=== PATIENT | female | born 1940 | race Caucasian/White ===

== ENCOUNTER 2017-08-30 15:41 | Outpatient (CLI) | payer MEDICARE | END 2017-08-30 15:42 | disposition home or self-care (01) | LOC: BICMAMMO 15:41 | PROVIDERS: ATTEND Internal Medicine | DX: Z12.31 Encounter for screening mammogram for malignant neoplasm of breast (principal) | CPT/HCPCS: 77063; 77067 ==

== ENCOUNTER 2017-10-16 11:58 | Emergency (ER) | payer MEDICARE ==
[2017-10-16] MEDS ORDERED: Adacel (T-DAP) 0.5 ML VIAL ONE (12:23)
--- NOTE | 2017-10-16 13:04 | CT ---
CT BRAIN WITHOUT CONTRAST: Date: 10/16/17 HISTORY: Fall, trauma, headache. FINDINGS: No evidence of infarct, hemorrhage, midline shift, or abnormal extra-axial fluid collections are seen . The ventricular size is appropriate and the basilar cisterns are patent. The bony calvarium is inta ct. The visualized paranasal sinuses and mastoid air cells are well aerated. IMPRESSION: No CT evidence of acute intracranial process. POS: [facility]
--- NOTE | 2017-10-16 13:09 | CT ---
CT FACIAL BONES WITH CORONAL AND SAGITTAL REFORMATIONS: Date: 10/16/17 HISTORY: Trauma, fall, facial pain. FINDINGS/IMPRESSION: No acute facial bones fracture is seen. No temporomandibular dislocation is identified. The visualize d paranasal sinuses are well aerated without air fluid levels. POS: [facility]
--- NOTE | 2017-10-16 13:10 | RAD ---
PORTABLE CHEST 1 VIEW: Date: 10/16/17 Time: 1307 hours HISTORY: Trauma. Chest pain. FINDINGS/IMPRESSION: Comparison made with exam of 08/17/15. The heart is enlarged. No lobar consolidation, pneumothorax, olayinka pulmonary edema, or large effusion s are seen. There is a fracture involving the left proximal humerus. POS: [facility]
--- NOTE | 2017-10-16 13:14 | RAD ---
LEFT HUMERUS 2 VIEWS: Date; 10/16/17 HISTORY: Fall. Left arm pain. FINDINGS/IMPRESSION: There is a mildly displaced fracture involving the neck of the left humerus. POS: [facility]
--- NOTE | 2017-10-16 13:18 | RAD ---
LEFT FOREARM 2 VIEWS: Date: 10/16/17 HISTORY: Trauma. Left forearm pain. FINDINGS/IMPRESSION: The left radius and ulna appear intact. POS: [facility]
[2017-10-16] MEDS ORDERED: Bacitracin Zinc 1 Packet ONE (13:31)
== END 2017-10-16 13:53 | disposition home or self-care (01) ==
LOC: SCSER 11:58
DX: S42.292A Other displaced fracture of upper end of left humerus, initial encounter for closed fracture (principal); S51.812A Laceration without foreign body of left forearm, initial encounter; S00.33XA Contusion of nose, initial encounter; I25.10 Atherosclerotic heart disease of native coronary artery without angina pectoris; I48.91 Unspecified atrial fibrillation; E03.9 Hypothyroidism, unspecified; I10 Essential (primary) hypertension; Z79.82 Long term (current) use of aspirin; Z79.899 Other long term (current) drug therapy; Z87.891 Personal history of nicotine dependence; W01.198A Fall on same level from slipping, tripping and stumbling with subsequent striking against other object, initial encounter; Y92.198 Other place in other specified residential institution as the place of occurrence of the external cause
CPT/HCPCS: 70450; 70486; 71045; 90471; 90715; 96372

== ENCOUNTER 2017-10-26 13:36 | Outpatient (CLI) | payer MEDICARE ==
--- NOTE | 2017-10-26 15:34 | HP ---
DATE OF SERVICE: 10/26/2017 HISTORY OF PRESENT ILLNESS: Ms. Rosaura Escobar is a very pleasant 77-year-old accompanied by her sister who presents to the Wound Center for evaluation of a skin tear of the dorsum of the left forea rm. The patient states that she fell on 10/16/2017 and was seen in the [facility] Department for a fracture of her left humerus. The skin tear of the dorsum of the left forearm wa s treated with Steri-Strips to approximate the wound edges. At a followup appointment with Dr. Nelly Sood, the patient was referred to the Wound Center for further evaluation and treatment. The patie nt states she has been dressing the skin tear of the dorsum of her left forearm with Neosporin applie d to the nonstick pads followed by gauze. The patient also presents with edema and weeping of her ri ght lower leg. The patient states she has undergone venous ablation by Dr. Ponce on the right in the past. PAST MEDICAL HISTORY: 1. Osteoarthritis. 2. Hypertension. 3. Atrial fibrillation/atrial flutter. 4. Hypothyroidism. 5. Gastroesophageal reflux disease. 6. Mitral regurgitation. PAST SURGICAL HISTORY: 1. Right total knee arthroplasty. 2. Surgery for endometriosis including appendectomy. 3. Surgery for uterine cavity polyp. 4. Umbilical hernia repair. MEDICATIONS: 1. L-thyroxine. 2. Zantac. 3. Metoprolol. 4. Potassium chloride. 5. Lasix. 6. Aspirin 81 mg. 7. Ambien. 8. Acetamide. 9. Vitamin D. 10. Vitamin B12 injections. 11. Ultram. ALLERGIES: LATEX. SOCIAL HISTORY: Significant for only the rare use of tobacco and rare consumption of alcohol. FAMILY HISTORY: Significant for coronary artery disease. The patient states that her father was doretha gnosed with coronary artery disease. Family history is negative for diabetes mellitus. PHYSICAL EXAMINATION: VITAL SIGNS: Temperature 98.4, pulse 79, respirations 19, blood pressure 138/63. GENERAL: A 77-year-old female sitting on wheelchair in examination room in no acute distress. HEENT: Normocephalic. NECK: No nuchal rigidity. CHEST: Clear to auscultation. CARDIAC: Regular rate and rhythm. ABDOMEN: Soft. EXTREMITIES: A skin tear of the dorsum of the left forearm is present. The Steri-Strips utilized to approximate the wound edges were discontinued. No purulent drainage is associated with the wound. No cellulitis of the left forearm is present. No maceration of the skin of the periwound is noted. Edema of the left forearm and hand is present on exam today. No open wounds are present over the rig ht lower leg. Erythema of the right lower leg is present which appears to be secondary to stasis lasha nges as opposed to an infectious process. No maceration of the skin of the right lower leg is presen t. A dorsalis pedis pulse is easily palpable on the right. Edema of the right foot and lower leg is present on exam today. ASSESSMENT AND PLAN: 1. Skin tear of the dorsum of left forearm as described above. Mepitel, Webril, and an Rob bandage, and Coban will be applied to the skin tear of the dorsum of the left forearm today. Webril and the 3m Coban 2-layer compression system will be applied to the right foot and lower leg. Orders will be transmitted to Home Health for one dressing change before the patient's followup visit in the Wound C enter in 1 week. No antibiotics will be prescribed today based upon the appearance of the right lowe r leg and left upper extremity. The patient understands and is in agreement with the preceding treat ment plan. The patient states she will return to clinic in 1 week for dressing changes to the right lower extremity and left upper extremity. 2. Osteoarthritis. 3. Hypertension. 4. Atrial fibrillation/atrial flutter. 5. Hypothyroidism. 6. Gastroesophageal reflux disease. 7. Mitral regurgitation.
== END 2017-10-26 13:37 | disposition home or self-care (01) ==
LOC: WCC 13:36
PROVIDERS: ATTEND Family Medicine
DX: S51.802D Unspecified open wound of left forearm, subsequent encounter (principal); M19.90 Unspecified osteoarthritis, unspecified site; I10 Essential (primary) hypertension; I48.91 Unspecified atrial fibrillation; I48.92 Unspecified atrial flutter; E03.9 Hypothyroidism, unspecified; K21.9 Gastro-esophageal reflux disease without esophagitis; I34.0 Nonrheumatic mitral (valve) insufficiency
CPT/HCPCS: 29581; 97139; G0463; 99203

== ENCOUNTER 2017-11-02 14:13 | Outpatient (CLI) | payer MEDICARE ==
--- NOTE | 2017-11-02 19:37 | PRG ---
DATE OF SERVICE: 11/02/2017 HISTORY: Ms. Rosaura Escobar is a very pleasant 77-year-old accompanied by her sister who presents to the Wound Center for evaluation of a skin tear of the dorsum of the left forearm. The patient pr eviously stated that she fell on 10/16/2017 and was seen in the [facility] Emergency Dep[facility] tment for a fracture of her left humerus. The skin tear of the dorsum of the left forearm was treate d with Steri-Strips to approximate the wound edges. At a followup appointment with Dr. Nelly Sood, the patient was referred to the Wound Center for further evaluation and treatment. The patient state d that prior to being seen in the Wound Center, she had been dressing the skin tear of the dorsum of her left forearm with Neosporin applied to nonstick pads followed by gauze. [facility], Ms. Escobar also presented with edema and weeping of he r right lower leg. The patient stated she had undergone venous ablation by Dr. Ponce on the [facility] in the past. PHYSICAL EXAMINATION: VITAL SIGNS: Temperature 98.0, pulse 80, respirations 18, blood pressure 142/63. EXTREMITIES: The skin tear of the dorsum of the left forearm measures approximately 1.0 x 3.0 cm. T he wound has almost healed completely. No purulent drainage is associated with the wound. No cellul itis of the left forearm is present. No maceration of the skin of the periwound is noted. Less preston a of the left forearm and hand is present on today's exam than at the time of the patient's initial p resentation to the Wound Center. Erythema of the right lower leg is present, which appears to be sec ondary to stasis changes as opposed to an infectious process. A dorsalis pedis pulse is easily palpa ble on the right. Less edema of the right foot and lower leg is present on exam today than at the ti me of the patient's last visit to the Wound Center. Edema and erythema of the left lower extremity i s noted on exam today. ASSESSMENT AND PLAN: 1. Skin tear of the dorsum of the left forearm as described above. This wound has almost healed com pletely and orders will be transmitted to Home Health for dressing changes of Mepilex border 3 times per week after cleansing and irrigation. Xeroform gauze, ABDs, Webril and 3M Coban 2-layer compressi on system will be applied to the right foot and lower leg today. Orders will also be transmitted to Home Health for dressing changes of the right foot and leg 3 times per week after cleansing and irrig ation. I will see Ms. Escobar again in 2 weeks. 2. Left lower extremity cellulitis. The patient has been given a prescription for Bactrim DS number 20, one p.o. b.i.d. x10 days. 3. Osteoarthritis. 4. Hypertension. 5. Atrial fibrillation/atrial flutter. 6. Hypothyroidism. 7. Gastroesophageal reflux disease. 8. Mitral regurgitation.
== END 2017-11-02 14:14 | disposition home or self-care (01) ==
LOC: WCC 14:13
PROVIDERS: ATTEND Family Medicine
DX: S51.812D Laceration without foreign body of left forearm, subsequent encounter (principal); L03.116 Cellulitis of left lower limb; M19.90 Unspecified osteoarthritis, unspecified site; I48.91 Unspecified atrial fibrillation; I48.92 Unspecified atrial flutter; E03.9 Hypothyroidism, unspecified; K21.9 Gastro-esophageal reflux disease without esophagitis; I34.0 Nonrheumatic mitral (valve) insufficiency
CPT/HCPCS: 29581

== ENCOUNTER 2017-11-23 13:42 | Outpatient (CLI) | payer MEDICARE ==
--- NOTE | 2017-11-23 15:58 | PRG ---
DATE OF SERVICE: 11/23/2017 HISTORY: Ms. Rosaura Escobar is a very pleasant 77-year-old accompanied by her sister who presents to [facility] for evaluation of a skin tear of the dorsum of the left forearm. The patient elian jurado stated that she fell on 10/16/2017 and was seen in the [facility] Emergency Department for a fracture of her left humerus. The skin tear of the dorsum of the left forearm was treated wit h Steri-Strips to approximate the wound edges. At a followup appointment with Dr. Nelly Sood, the marilee calvillo was referred to the Wound Center for further evaluation and treatment. The patient stated gail t prior to being seen in the Wound Center, she had been dressing the skin tear of the dorsum of her l eft forearm with Neosporin applied to the nonstick pads followed by gauze. At the time of the [facility]'s initial presentation to the Wound Center, Ms. Escobar also presented with edema and weeping of her right lower leg. The patient stated she has undergone venous ablation by Dr. Ponce on the right in the past. PHYSICAL EXAMINATION: VITAL SIGNS: Temperature 97.8, pulse 79, respirations 18 and blood pressure 132/63. EXTREMITIES: The skin tear of the dorsum of the left forearm has healed completely. Erythema of the right and left lower legs is present which appears to be secondary to stasis changes as opposed to a n infectious process. A dorsalis pedis pulse and a posterior tibial pulse are palpable on the right and on the left. Less edema of the right and left feet and lower legs is present on exam today than at the time of the patient's last visit to the Wound Center. ASSESSMENT AND PLAN: 1. Skin tear of the dorsum of the left forearm. As stated above, this wound has healed completely. Ms. Escobar will be discharged from clinic today with followup on a p.r.n. basis. 2. Osteoarthritis. 3. Hypertension. 4. Atrial fibrillation/atrial flutter. 5. Hypothyroidism. 6. Gastroesophageal reflux disease. 7. Mitral regurgitation.
== END 2017-11-23 13:43 | disposition home or self-care (01) ==
LOC: WCC 13:42
PROVIDERS: ATTEND Family Medicine
DX: S51.812D Laceration without foreign body of left forearm, subsequent encounter (principal); M19.90 Unspecified osteoarthritis, unspecified site; I10 Essential (primary) hypertension; E03.9 Hypothyroidism, unspecified; I34.0 Nonrheumatic mitral (valve) insufficiency; K21.9 Gastro-esophageal reflux disease without esophagitis
CPT/HCPCS: 97139; G0463; 99212

== ENCOUNTER 2018-07-03 15:13 | Inpatient (IN) | payer MEDICARE ==
[2018-07-03 16:43] LABS: #Lymphocytes 0.8 thou/uL (1.20-3.40); #Monocytes 0.8 thou/uL (0.11-0.59); #Neutrophils 8.6 thou/uL (1.40-6.50); %Basophils 0.5 % (0.0-1.0); %Eosinophils 0.1 % (0.0-10.0); %Lymphocytes 8.1 % (21.0-51.0); %Monocytes 7.8 % (0.0-10.0); %Neutrophils 83.5 % (42.0-75.0); Hemoglobin 14.8 g/dL (12.0-16.0); Mean Corpuscular Hemoglobin 29.5 pg (27.0-31.0); Mean Corpuscular Volume 89.4 fL (78.0-98.0); Platelet Count 251 thou/uL (130-400); RBC Distribution Width 15.9 % (11.5-14.5); Red Blood Cell (RBC) Count 5.02 mill/uL (4.20-5.40); White Blood Cell (WBC) Count 10.3 thou/uL (4.8-10.8)
--- NOTE | 2018-07-03 17:05 | ULT ---
ULTRASOUND WITH DOPPLER DUPLEX VENOUS LOWER EXTREMITY LEFT: HISTORY: 77-year-old female with left lower extremity edema. TECHNIQUE: Color flow Doppler, spectral waveform analysis of pulsed Doppler, and schmidt-scale imaging with damian meenu and augmentation, were used to evaluate the left common femoral, femoral, popliteal, posterior t ibial, and superficial femoral, veins; and the proximal portions of the profunda femoral and greater saphenous, veins. FINDINGS: There is normal compressibility, demonstration of blood flow by color Doppler and pulsed Doppler, and response to augmentation, in all interrogated veins. IMPRESSION: Negative. No deep vein thrombosis in the left lower extremity. jn[] POS: [facility]
[2018-07-03] MEDS ORDERED: Cefepime 2 GM VIAL ONE (17:09)
[2018-07-03 19:26] LABS: Albumin 3.5 g/dL (3.4-4.8)
[2018-07-03 19:28] LABS: Calcium 9.3 mg/dL (7.8-10.44); Chloride 86 mmol/L (98-107); Sodium 126 mmol/L (136-145)
[2018-07-03 19:29] LABS: Globulin 3.5 g/dL (2.4-3.5); Glucose 87 mg/dL (83-110)
[2018-07-03 19:30] LABS: Anion Gap 15 mmol/L (10-20); Bilirubin, Total 2.8 mg/dL (0.2-1.2); Carbon Dioxide 29 mmol/L (23-31)
[2018-07-03 19:32] LABS: Alkaline Phosphatase 127 U/L (40-150); Calc. Creatinine Clearance 0 mL/min (70-130); Estimated GFR-MDRD 58
[2018-07-03 19:33] LABS: BUN (Urea Nitrogen) 13 mg/dL (9.8-20.1)
[2018-07-03 19:34] LABS: AST (SGOT) 22 U/L (5-34)
[2018-07-03 19:35] LABS: ALT (SGPT) 13 U/L (8-55)
[2018-07-03] MEDS ORDERED: Acetaminophen 650 MG Suppository PR PRN (19:59)
[2018-07-03] MEDS ORDERED: Ondansetron PF 4 MG/2 ML Vial IVP PRN (19:59)
[2018-07-03] MEDS ORDERED: Ondansetron ODT 4 MG TAB PO PRN (19:59)
[2018-07-03] MEDS ORDERED: Potassium Chloride 10 MEQ TAB PO PRN (20:08)
[2018-07-03] MEDS ORDERED: Ezetimibe 10 MG TAB PO SCH (21:45)
[2018-07-03] MEDS: Famotidine 20 MG TAB PO SCH (22:07)
[2018-07-03] MEDS: Piperacillin/Tazobactam 3.375 GM in Sodium Chloride 0.9% 100 ML IVPB SCH (23:39)
[2018-07-04] MEDS: Zolpidem Tartrate 5 MG TAB PO PRN ×2 (01:11→20:46)
--- NOTE | 2018-07-04 03:07 | HP ---
PRIMARY CARE PHYSICIAN: Nelly Sood MD CHIEF COMPLAINT: Cellulitis. HISTORY OF PRESENT ILLNESS: This is a 77-year-old white female with a known history of fluid retention, possibly congestive heart failure, who presented to the emergency room, sent from the doctor's office for persistent cellulitis failing outpatient treatment. The patient reports that she did not have any lower extremity edema until March of last year when her blood pressure medicines were changed. She does not remember what medicine Dr. Ponce started. She had a lot of edema and swelling at that time, eventually was able to get it down and then over the holidays, she was staying with her daughter and was not careful to take her Lasix every day, and was not eating all the appropriate stuff, and she swelled up significantly again. After flying back [facility], she developed some redness on the right leg and she did spike fever to 102; this was the Monday after New Year. The patient was seen in her primary care physician's office. She was given a couple different kinds of antibiotics and most recently was put on a prolonged course of Bactrim, which she just finished. This did not improve the redness at all. She has not had any more fever, however, since that spike a week and half ago. The patient denies any other symptoms besides the redness, which has now reached up to her groin. PAST MEDICAL HISTORY: 1. Atrial fibrillation/atrial flutter. 2. Hypertension. 3. Hypothyroidism. 4. Gastroesophageal reflux disease. 5. Mitral regurgitation. 6. Osteoarthritis. PAST SURGICAL HISTORY: 1. Multiple ablation procedures and a Watchman procedure done in [place]. 2. Right total knee arthroplasty. 3. Umbilical hernia repair. 4. Procedure for endometriosis. SOCIAL HISTORY: The patient is a former tobacco user, smoked cigarettes for a few years and quit many years ago. Rare alcohol. She lives by herself and gets around with a walker. FAMILY HISTORY: This patient reports that father was diagnosed with coronary artery disease. Family history is negative for diabetes. KNOWN ALLERGIES: 1. Latex. 2. Digoxin. 3. Adhesive tape. 4. Lipitor. 5. Multaq. 6. Hydrochlorothiazide. 7. Amlodipine. 8. Cipro causes nausea and vomiting. MEDICATIONS: 1. Synthroid 100 mcg daily. 2. Lasix 20 mg, now increased to twice a day by her primary care doctor. 3. Potassium chloride 10 mEq daily. 4. Ferrous sulfate 325 mg daily. 5. Ranitidine 150 mg 2 times a day. 6. Ambien 10 mg as needed. 7. Metoprolol tartrate 50 mg once a day. 8. Aspirin 81 mg daily. REVIEW OF SYSTEMS: CONSTITUTIONAL: Fevers as per HPI, none recently. No chills. She had some weight gain from the increased fluid. This is starting to improve a little bit over the last week. EYES: No double vision or new vision changes. ENT: No congestion, drainage, or sore throat. CARDIOVASCULAR: No chest pain. No palpitations or racing heart. PULMONARY: No coughing, wheezing, or shortness of breath. GASTROINTESTINAL: No abdominal pain. She has had loss of appetite for the last couple of weeks ever since she started getting the cellulitis, has not vomited at all, but has felt nauseated on occasion. She does tend toward constipation and takes a daily stool softener for this. She had stopped it when she started the antibiotics; however, she got constipated, so she took it again and she was able to have a normal bowel movement yesterday. GENITOURINARY: No dysuria or hematuria. MUSCULOSKELETAL: No muscle aches or joint pain. SKIN: See HPI. NEUROLOGIC: No numbness, tingling, or focal weakness in her legs, overall felt weak bilaterally though since she got sick. PHYSICAL EXAMINATION: VITAL SIGNS: Blood pressure 152/75, pulse 74, respirations 18, temperature 98.0, O2 saturation 100% on room air. GENERAL: This is a well-developed, well-nourished white female, in no acute distress. HEENT: Pupils equal, round, and reactive to light. Oropharynx clear without lesions, erythema, or exudate. NECK: Supple. No lymphadenopathy. No thyroid nodules or enlargement. She does have some significant JVD. HEART: Regular rate and rhythm. No murmurs, rubs, or gallops. LUNGS: Clear to auscultation bilaterally. No wheezes, crackles, or rhonchi. ABDOMEN: Soft, obese, nontender to palpation. Normoactive bowel sounds. No hepatosplenomegaly or other masses. EXTREMITIES: The patient has 3+ edema to bilateral lower extremities. She has some mild erythema of the right akins down near the ankle, which appears to be more of a chronic edematous change; however, on the left lower extremity, she has a bright red, warm cellulitis starting down near the foot, extending up the akins, up the medial thigh all the way to her inguinal region. No inguinal node enlargement. No evidence of purulence or abscess. There are some weeping areas bilaterally from the edema. SKIN: See extremity exam above. No other rashes noted. NEUROLOGIC: Intact strength and sensation in all extremities. No facial droop. PSYCHIATRIC: Alert and orient x3. Normal mood and affect. LABORATORY DATA: CBC within normal limits. No elevated white blood cell count. Complete metabolic panel is notable for a sodium of 126. The patient was admitted with hyponatremia a couple years ago. Other abnormal labs; chloride of 86. Total bilirubin is elevated at 2.8, which has actually been elevated before back in 2016. The remainder of the CMP was normal. Lactic acid was 1.9. Brain natriuretic peptide is elevated at 213. Troponin was negative. Vascular ultrasound done in the emergency room showed no evidence for deep venous thrombosis in the left lower extremity. ASSESSMENT AND PLAN: 1. Cellulitis, failed outpatient therapy. The patient was given a dose of Zosyn and vancomycin in the emergency room. We will continue these IV on the floor. 2. Congestive heart failure exacerbation. The patient's most recent echocardiogram was done in 2017, was a transesophageal echocardiogram and showed an ejection fraction of 55% to 60% with severe mitral regurgitation and severe tricuspid regurgitation. She likely has diastolic dysfunction given her normal EF. I do not see a more recent echocardiogram, so we will go ahead and do one while she is in the hospital. We will give her Lasix 40 mg IV twice a day. We will also continue her oral potassium. We will consult whoever is on-call for Dr. Ponce to assist with this case. 3. Hypothyroidism. We will resume the patient's home medications. 4. Hypertension. We will resume the patient's home medications and monitor closely as we diurese. 5. Gastrointestinal prophylaxis. We will continue the patient on a H2 meghan. 6. Deep venous thrombosis prophylaxis. We will put the patient on Lovenox while in the hospital. 7. Code status, I did discuss this with the patient. She states that she is a do not resuscitate and does not want any resuscitation and should she be incapacitated, her daughter would be her medical decision maker. Her daughter's name is Lynette Traore. Also her sister would be of assistance as well. Her name is Flavia Cohn. Job ID: [id number]
[2018-07-04] MEDS: Piperacillin/Tazobactam 3.375 GM in Sodium Chloride 0.9% 100 ML IVPB SCH ×3 (05:38→18:23)
[2018-07-04] MEDS: Levothyroxine Sodium 100 MCG TAB PO SCH (05:41)
[2018-07-04] MEDS: Vancomycin HCl 1 GM in Premix Bag 1 BAG IVPB SCH ×2 (06:33→17:13)
[2018-07-04] MEDS: Furosemide 40 MG/4 ML VIAL SLOW IVP SCH ×2 (06:35→13:55)
[2018-07-04] MEDS: Acetaminophen 325 MG TAB PO PRN (06:36)
[2018-07-04 07:16] LABS: #Lymphocytes 0.8 thou/uL (1.20-3.40); #Monocytes 0.8 thou/uL (0.11-0.59); #Neutrophils 6.5 thou/uL (1.40-6.50); %Basophils 0.3 % (0.0-1.0); %Eosinophils 0.2 % (0.0-10.0); %Lymphocytes 9.9 % (21.0-51.0); %Monocytes 9.9 % (0.0-10.0); %Neutrophils 79.8 % (42.0-75.0); Hemoglobin 13.1 g/dL (12.0-16.0); Mean Corpuscular HGB CONC 32.7 g/dL (32.0-36.0); Mean Corpuscular Hemoglobin 29.4 pg (27.0-31.0); Mean Corpuscular Volume 89.9 fL (78.0-98.0); Mean Platelet Volume 6.9 fL (7.4-10.4); Platelet Count 256 thou/uL (130-400); RBC Distribution Width 14.9 % (11.5-14.5); Red Blood Cell (RBC) Count 4.44 mill/uL (4.20-5.40); White Blood Cell (WBC) Count 8.1 thou/uL (4.8-10.8)
[2018-07-04 07:34] LABS: Anion Gap 13 mmol/L (10-20); BUN (Urea Nitrogen) 13 mg/dL (9.8-20.1); Calc. Creatinine Clearance 83 mL/min (70-130); Calcium 8.8 mg/dL (7.8-10.44); Carbon Dioxide 29 mmol/L (23-31); Chloride 88 mmol/L (98-107); Estimated GFR-MDRD 61; Glucose 80 mg/dL (83-110); Potassium 3.9 mmol/L (3.5-5.1); Sodium 126 mmol/L (136-145)
--- NOTE | 2018-07-04 08:30 | PDOC.PN ---
- Subjective Encounter Start Date: 07/04/18 Encounter Start Time: 10:30 Subjective: Not recorded but patient reports lots of UOP and decreased edema. No fever -: Pain in leg better. - Objective Resuscitation Status - Order Detail: 07/03/18 19:55 Resuscitation Status Routine Resuscitation Status: DNAR: NO Resuscitation Discussed with: Patient MAR Reviewed: Yes Vital Signs & Weight: Vital Signs (12 hours) Temp Pulse Resp BP Pulse Ox 07/04/18 07:50 98.2 F 61 18 128/71 91 L 07/04/18 04:00 97.4 F L 66 16 113/64 97 07/04/18 00:00 98.4 F 68 18 103/66 93 L 07/03/18 23:53 98.2 F 71 20 117/74 92 L Weight Weight 220 lb 9.6 oz I&O: 07/03/18 07/04/18 07/05/18 06:59 06:59 06:59 Output Total 200 Balance -200 Result Diagrams: 07/04/18 06:37 07/04/18 06:37 Phys Exam - Physical Examination Constitutional: NAD HEENT: moist MMs Respiratory: no wheezing, no rales, no rhonchi Cardiovascular: RRR, no significant murmur Gastrointestinal: soft, non-tender, positive bowel sounds Musculoskeletal: edema present 2+ BLE that is better from admission 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 Diuresing with IV Lasix. (3) Hypertension Code(s): I10 - ESSENTIAL (PRIMARY) HYPERTENSION Status: Chronic Qualifiers: Hypertension type: essential hypertension Qualified Code(s): I10 - Essential (primary) hypertension Comment: well controlled (4) Hypothyroidism Code(s): E03.9 - HYPOTHYROIDISM, UNSPECIFIED Status: Chronic Comment: on levothyroxine - Plan cont current plan of care, continue antibiotics, PT/OT, DVT proph w/lovenox * . - Discharge Day Encounter end time: 10:45
[2018-07-04] MEDS: Enoxaparin Sodium 40 MG/0.4 ML SYRINGE SC SCH (08:34)
[2018-07-04] MEDS: Famotidine 20 MG TAB PO SCH ×2 (08:34→20:47)
--- NOTE | 2018-07-04 11:49 | PQF ---
[employer] Crystal Reports Winform JOSS Cruz LENCHO, BLANCA ELKINS MD [id number] [id number] CLINICAL DOCUMENTATION IMPROVEMENT CLARIFICATION FORM: ICD-10 Updated PLEASE DO AN ADDENDUM TO THE PROGRESS NOTE WITH ANY DOCUMENTATION UPDATES OR ADDITIONS AND CARRY THROUGH TO DC SUMMARY. THANK YOU. DATE: 07/04/2018 ATTN: DR. MUSA Please exercise your independent, professional judgment in responding to the clarification form. Clinical indicators are provided on the bottom of this form for your review Please check appropriate box(s): BMI > 40 with associated diagnosis of: (check one) [ X ] Morbid (Severe) Obesity [ ] Due to excess calories [ ] with Alveolar Hypoventilation (Pickwickian syndrome) [ ] Overweight [ ] Obesity [ ] Other diagnosis [ ] Unable to determine For continuity of documentation, please document condition throughout progress notes and discharge summary. Thank You. BMI < 19 Under weight 19 - 24.9 Healthy 25.0 - 29.9 Slightly Overweight 30.0 - 34.9 Obese 35.0 - 39.9 Severely Obese 40.0 and Over Morbidly Obese CLINICAL INDICATORS - SIGNS / SYMPTOMS / LABS BMI of: 41.7 Difficulty ambulating / positioning self-performing ADLs Additional staff for transfers, positioning, ADLs RISK FACTORS HX CHF HX AFIB/AFLUTTER Hypothyroid TREATMENTS: Dietary consult / weight loss counseling Calorie counts Thank You, Hailey (This form is maintained as a part of the permanent medical record) 2014 [employer], [employer]. All Rights Reserved Hailey Lan RN, CDIS [email or web address] [phone] [facility]
[2018-07-04] MEDS: Ezetimibe 10 MG TAB PO SCH (20:47)
[2018-07-05] MEDS: Piperacillin/Tazobactam 3.375 GM in Sodium Chloride 0.9% 100 ML IVPB SCH ×3 (00:43→11:53)
[2018-07-05] MEDS: Levothyroxine Sodium 100 MCG TAB PO SCH (06:27)
[2018-07-05] MEDS: Furosemide 40 MG/4 ML VIAL SLOW IVP SCH ×2 (06:27→14:24)
[2018-07-05 06:41] LABS: Vancomycin, Trough 17.2 ug/mL
[2018-07-05 06:43] LABS: Anion Gap 15 mmol/L (10-20); BUN (Urea Nitrogen) 13 mg/dL (9.8-20.1); Calc. Creatinine Clearance 83 mL/min (70-130); Calcium 8.4 mg/dL (7.8-10.44); Carbon Dioxide 24 mmol/L (23-31); Chloride 90 mmol/L (98-107); Estimated GFR-MDRD 61; Glucose 71 mg/dL (83-110); Potassium 3.8 mmol/L (3.5-5.1); Sodium 125 mmol/L (136-145)
[2018-07-05] MEDS: Vancomycin HCl 1 GM in Premix Bag 1 BAG IVPB SCH (07:42)
--- NOTE | 2018-07-05 09:12 | PDOC.PN ---
- Subjective Encounter Start Date: 07/05/18 Encounter Start Time: 10:30 Subjective: Patient reports continued good UOP. Pain resolved in leg. Redness -: improved. No fevers. No SOB. Swelling in legs much better. - Objective Resuscitation Status - Order Detail: 07/03/18 19:55 Resuscitation Status Routine Resuscitation Status: DNAR: NO Resuscitation Discussed with: Patient SHEREEN Reviewed: Yes Vital Signs & Weight: Vital Signs (12 hours) Temp Pulse Resp BP Pulse Ox 07/05/18 08:00 98.1 F 66 18 138/69 93 L 07/05/18 05:00 98 F 62 18 112/68 91 L 07/05/18 02:19 98 F 64 16 112/59 L 94 L Weight Admit Weight 220 lb 9.6 oz Weight 222 lb 3.2 oz I&O: 07/04/18 07/05/18 07/06/18 06:59 06:59 06:59 Intake Total 1350 500 Output Total 200 1650 1150 Balance -200 -300 -650 Result Diagrams: 07/04/18 06:37 07/05/18 06:02 Phys Exam - Physical Examination Constitutional: NAD HEENT: moist MMs Respiratory: no wheezing, no rales, no rhonchi Cardiovascular: RRR, no significant murmur Gastrointestinal: soft, non-tender, positive bowel sounds redness on thigh mostly gone, edema on both extremities much better Neurological: non-focal, moves all 4 limbs Psychiatric: normal affect, A&O x 3 Dx/Plan (1) Cellulitis Code(s): L03.90 - CELLULITIS, UNSPECIFIED Status: Acute Qualifiers: Site of cellulitis: extremity Site of cellulitis of extremity: lower extremity Laterality: left Qualified Code(s): L03.116 - Cellulitis of left lower limb Comment: On Vanc and Zosyn, blood cultures negative, switch to oral antibiotics today and possibly home tomorrow. (2) Acute exacerbation of CHF (congestive heart failure) Code(s): I50.9 - HEART FAILURE, UNSPECIFIED Status: Acute Comment: Likely diastolic CHF, ECHO pending, cardiology consulted. Diuresing with IV Lasix. (3) Hypertension Code(s): I10 - ESSENTIAL (PRIMARY) HYPERTENSION Status: Chronic Qualifiers: Hypertension type: essential hypertension Qualified Code(s): I10 - Essential (primary) hypertension Comment: well controlled (4) Hypothyroidism Code(s): E03.9 - HYPOTHYROIDISM, UNSPECIFIED Status: Chronic Comment: on levothyroxine (5) Hyponatremia Code(s): E87.1 - HYPO-OSMOLALITY AND HYPONATREMIA Status: Acute Comment: likely due to CHF, stable (6) Morbid obesity Code(s): E66.01 - MORBID (SEVERE) OBESITY DUE TO EXCESS CALORIES Status: Chronic - Plan cont current plan of care, continue antibiotics, PT/OT, DVT proph w/lovenox Patient may need rehab if can't get around well when -: ready to discharge. Will reevaluate tomorrow. * . - Discharge Day Encounter end time: 10:40
[2018-07-05] MEDS: Enoxaparin Sodium 40 MG/0.4 ML SYRINGE SC SCH (09:25)
[2018-07-05] MEDS: Famotidine 20 MG TAB PO SCH ×2 (09:25→20:51)
[2018-07-05] MEDS ORDERED: Potassium Chloride 10 MEQ TAB PO SCH (11:00)
[2018-07-05] MEDS: Acetaminophen 325 MG TAB PO PRN (14:26)
[2018-07-05] MEDS: Cephalexin 250 MG CAP PO SCH ×2 (17:11→23:13)
[2018-07-05] MEDS ORDERED: Cephalexin 250 MG CAP PO SCH (18:00)
--- NOTE | 2018-07-05 18:31 | PRG ---
DATE OF SERVICE: 07/05/2018 SUBJECTIVE: Ms. Escobar is doing well. No current complaints. No chest pain, pressure, shortness of breath, or associated symptoms. OBJECTIVE: GENERAL: Patient is a pleasant female, who is in no acute distress. The patient appears their stated age. VITAL SIGNS: Blood pressure 115/68, pulse 77, temperature 98. NEUROLOGIC: The patient is alert and oriented x3 with no focal neurologic deficits. HEENT: Sclerae without icterus. Mouth has moist mucous membranes with normal pallor. NECK: No JVD. Carotid upstroke brisk. No bruits bilaterally. LUNGS: Clear to auscultation with unlabored respirations. BACK: No scoliosis or kyphosis. CARDIAC: Irregularly irregular. Normal S1 and S2. No S3 or S4 noted. No significant rubs, murmurs, thrills, or gallops noted throughout the precordium. PMI is not displaced. There is no parasternal heave. ABDOMEN: Soft, nontender, nondistended. No peritoneal signs present. No hepatosplenomegaly. No abnormal striae. EXTREMITIES: 2+ femoral and 2+ dorsalis pedis pulses. No cyanosis, clubbing, or edema. SKIN: No gross abnormalities. LABORATORY DATA: None today. IMPRESSION: 1. Congestive heart failure - patient appears euvolemic. Her LVEF appears normal. She likely has a component of diastolic dysfunction. 2. Cellulitis - she is currently on antibiotic therapy. We will continue. 3. From a CV standpoint, I have no further recommendations. PLAN: Follow up as an outpatient. Job ID: [id number]
[2018-07-05] MEDS: Ezetimibe 10 MG TAB PO SCH (20:51)
[2018-07-05] MEDS: Senokot S 8.6-50 MG TAB PO PRN (23:13)
[2018-07-05] MEDS: Zolpidem Tartrate 5 MG TAB PO PRN (23:13)
--- NOTE | 2018-07-06 00:57 | CON ---
DATE OF CONSULTATION: 07/04/2018 REASON FOR CONSULTATION: Congestive heart failure. HISTORY OF PRESENT ILLNESS: Ms. Escobar is a 77-year-old woman who recently presented with cellulitis to her lower extremities. She was treated with antibiotic therapy. I have been consulted for congestive heart failure. During my visit, Ms. Escobar denies chest pain, pressure, shortness of breath, or associated symptoms. She does have a history of atrial fibrillation status post Watchman device. She also has a previous history of moderate RV enlargement with severe tricuspid regurgitation. She has been currently asymptomatic. She does not require anticoagulation therapy due to a Watchman device. PAST MEDICAL HISTORY: Hyperlipidemia, hypertension, atrial fibrillation, status post Watchman, pulmonary hypertension, moderate to severe MR. ALLERGIES: TELMISARTAN, DIGOXIN, HYDROCHLOROTHIAZIDE. HOME MEDICATIONS: Include: 1. Tylenol. 2. Ambien. 3. Che. 4. Vitamin D3. 5. Synthroid. 6. Aspirin. 7. Zetia. 8. Iron. 9. Lasix. 10. Potassium. 11. Toprol. REVIEW OF SYSTEMS: A 10-point review of systems is reviewed and as above, otherwise negative. PHYSICAL EXAMINATION: VITAL SIGNS: Blood pressure 115/68, pulse 77, temperature 98. NEUROLOGIC: The patient is alert and oriented x3 with no focal neurologic deficits. HEENT: Sclerae without icterus. Mouth has moist mucous membranes with normal pallor. NECK: No JVD. Carotid upstroke brisk. No bruits bilaterally. LUNGS: Clear to auscultation with unlabored respirations. BACK: No scoliosis or kyphosis. CARDIAC: Irregularly irregular. ABDOMEN: Soft, nontender, nondistended. No peritoneal signs present. No hepatosplenomegaly. No abnormal striae. EXTREMITIES: 2+ femoral and 2+ dorsalis pedis pulses. No cyanosis, clubbing, or edema. SKIN: No gross abnormalities. PERTINENT LABORATORY DATA: Hemoglobin 13.1, white blood cell count 8.1, platelet count 256, creatinine 0.9. BNP of 213. IMPRESSION: 1. Congestive heart failure. 2. Atrial fibrillation. 3. Cellulitis. RECOMMENDATIONS: Ms. Escobar currently appears euvolemic. She has no current symptoms suggesting congestive heart failure. We will treat the cellulitis appropriately. No need for anticoagulation therapy given Watchman device. I compared her current echo to her previous echo and there are no significant changes noted. Job ID: [id number]
[2018-07-06] MEDS: Cephalexin 250 MG CAP PO SCH ×3 (05:53→17:15)
[2018-07-06] MEDS: Levothyroxine Sodium 100 MCG TAB PO SCH (05:53)
[2018-07-06] MEDS: Furosemide 40 MG/4 ML VIAL SLOW IVP SCH (05:53)
[2018-07-06] MEDS ORDERED: ZOLPIDEM TARTRATE PO PRN (08:03)
--- NOTE | 2018-07-06 08:06 | PDOC.PN ---
- Subjective Encounter Start Date: 07/06/18 Encounter Start Time: 11:00 Subjective: Patient feeling much better. No fever. No SOB. Swelling in legs resolved. - Objective Resuscitation Status - Order Detail: 07/03/18 19:55 Resuscitation Status Routine Resuscitation Status: DNAR: NO Resuscitation Discussed with: Patient SHEREEN Reviewed: Yes Vital Signs & Weight: Vital Signs (12 hours) Temp Pulse Resp BP Pulse Ox 07/06/18 07:54 97.9 F 60 19 133/87 90 L 07/06/18 05:29 97.2 F L 55 L 18 133/80 92 L 07/06/18 00:32 98 F 64 18 106/68 92 L Weight Admit Weight 220 lb 9.6 oz Weight 216 lb 1.6 oz I&O: 07/05/18 07/06/18 07/07/18 06:59 06:59 06:59 Intake Total 1350 2870 Output Total 1650 4050 Balance -300 -1180 Result Diagrams: 07/04/18 06:37 07/05/18 06:02 Phys Exam - Physical Examination Constitutional: NAD HEENT: moist MMs Respiratory: no wheezing, no rales, no rhonchi Cardiovascular: RRR, no significant murmur Gastrointestinal: soft, positive bowel sounds Musculoskeletal: no edema left cellulitis markedly improved, gone from thigh and foot, still with s significantly red focus lateral to left knee, not fluctuant. Neurological: non-focal, moves all 4 limbs Psychiatric: normal affect, A&O x 3 Dx/Plan (1) Cellulitis Code(s): L03.90 - CELLULITIS, UNSPECIFIED Status: Acute Qualifiers: Site of cellulitis: extremity Site of cellulitis of extremity: lower extremity Laterality: left Qualified Code(s): L03.116 - Cellulitis of left lower limb Comment: Blood cultures negative, Vanc and Zosyn d/c'd and now on Keflex. Can d/ c to rehab. (2) Acute exacerbation of CHF (congestive heart failure) Code(s): I50.9 - HEART FAILURE, UNSPECIFIED Status: Acute Comment: ECHO unchanged, diastolic CHF, fully diuresed. Switching back to po Lasix. (3) Hypertension Code(s): I10 - ESSENTIAL (PRIMARY) HYPERTENSION Status: Chronic Qualifiers: Hypertension type: essential hypertension Qualified Code(s): I10 - Essential (primary) hypertension Comment: well controlled (4) Hypothyroidism Code(s): E03.9 - HYPOTHYROIDISM, UNSPECIFIED Status: Chronic Comment: on levothyroxine (5) Hyponatremia Code(s): E87.1 - HYPO-OSMOLALITY AND HYPONATREMIA Status: Acute Comment: likely due to CHF, stable, will further restrict free fluids. Stop sodium restriction. (6) Morbid obesity Code(s): E66.01 - MORBID (SEVERE) OBESITY DUE TO EXCESS CALORIES Status: Chronic - Plan cont current plan of care, continue antibiotics, PT/OT D/C to rehab when approved * . - Discharge Day Encounter end time: 11:15
[2018-07-06] MEDS: Famotidine 20 MG TAB PO SCH ×2 (08:51→20:42)
[2018-07-06] MEDS: Potassium Chloride 10 MEQ TAB PO SCH (08:51)
[2018-07-06] MEDS: Ferrous Sulfate 325 MG TAB PO SCH (08:52)
[2018-07-06] MEDS: Senokot S 8.6-50 MG TAB PO PRN (08:52)
[2018-07-06] MEDS: Furosemide 20 MG TAB PO SCH (08:52)
[2018-07-06] MEDS: Enoxaparin Sodium 40 MG/0.4 ML SYRINGE SC SCH (08:54)
[2018-07-06] MEDS ORDERED: Non-Formulary Item 1 EACH (Cholecalciferol (Vitamin D3) [Vitamin D3] 5,000 UNIT) PO SCH (09:00)
[2018-07-06] MEDS ORDERED: FERROUS SULFATE 325 MG PO SCH (09:00)
[2018-07-06] MEDS: Acetaminophen 325 MG TAB PO PRN (12:26)
[2018-07-06] MEDS: Aspirin 81 mg Enteric Coated Tablet PO SCH (20:42)
[2018-07-06] MEDS: Ezetimibe 10 MG TAB PO SCH (20:43)
[2018-07-06] MEDS ORDERED: Zolpidem Tartrate 5 MG TAB PO SCH (21:00)
[2018-07-07] MEDS: Zolpidem Tartrate 5 MG TAB PO PRN (00:03)
[2018-07-07] MEDS: Cephalexin 250 MG CAP PO SCH ×4 (00:03→16:53)
[2018-07-07] MEDS: Acetaminophen 325 MG TAB PO PRN ×2 (00:06→18:42)
[2018-07-07] MEDS: Levothyroxine Sodium 100 MCG TAB PO SCH (05:40)
[2018-07-07] MEDS: Potassium Chloride 10 MEQ TAB PO SCH (09:04)
[2018-07-07] MEDS: Furosemide 20 MG TAB PO SCH (09:04)
[2018-07-07] MEDS: Ferrous Sulfate 325 MG TAB PO SCH (09:04)
[2018-07-07] MEDS: Famotidine 20 MG TAB PO SCH ×2 (09:04→20:47)
[2018-07-07] MEDS: Enoxaparin Sodium 40 MG/0.4 ML SYRINGE SC SCH (09:05)
[2018-07-07] MEDS: Ezetimibe 10 MG TAB PO SCH (20:46)
[2018-07-07] MEDS: Aspirin 81 mg Enteric Coated Tablet PO SCH (20:46)
--- NOTE | 2018-07-07 21:00 | PDOC.PN ---
- Subjective Encounter Start Date: 07/07/18 Encounter Start Time: 12:00 Patient seen and examined for CHF/Cellulitis. No new complaints. No overnight events - Objective Resuscitation Status - Order Detail: 07/03/18 19:55 Resuscitation Status Routine Resuscitation Status: DNAR: NO Resuscitation Discussed with: Patient MAR Reviewed: Yes Vital Signs & Weight: Weight Admit Weight 220 lb 9.6 oz Weight 213 lb 6.4 oz I&O: 07/06/18 07/07/18 07/08/18 06:59 06:59 06:59 Intake Total 2170 1030 1210 Output Total 4050 2200 Balance -1880 -1170 1210 Result Diagrams: 07/08/18 05:24 07/08/18 05:24 Phys Exam - Physical Examination Constitutional: NAD Respiratory: no wheezing, no rhonchi Cardiovascular: RRR, no rub Gastrointestinal: soft, non-tender, positive bowel sounds Musculoskeletal: edema present dressing + Dx/Plan (1) Acute exacerbation of CHF (congestive heart failure) Code(s): I50.9 - HEART FAILURE, UNSPECIFIED Status: Acute Comment: Acute on chronic diastolic HF (2) Cellulitis Code(s): L03.90 - CELLULITIS, UNSPECIFIED Status: Acute Qualifiers: Site of cellulitis: extremity Site of cellulitis of extremity: lower extremity Laterality: left Qualified Code(s): L03.116 - Cellulitis of left lower limb (3) Hyponatremia Code(s): E87.1 - HYPO-OSMOLALITY AND HYPONATREMIA Status: Acute (4) Hypertension Code(s): I10 - ESSENTIAL (PRIMARY) HYPERTENSION Status: Chronic Qualifiers: Hypertension type: essential hypertension Qualified Code(s): I10 - Essential (primary) hypertension Comment: well controlled (5) Hypothyroidism Code(s): E03.9 - HYPOTHYROIDISM, UNSPECIFIED Status: Chronic Comment: on levothyroxine (6) Morbid obesity Code(s): E66.01 - MORBID (SEVERE) OBESITY DUE TO EXCESS CALORIES Status: Chronic (7) Other issues per previous notes - Plan cont current plan of care, continue antibiotics, PT/OT, DVT proph w/lovenox AM labs -: Cont current meds as below -: Stable for dc - Await insurance approval Review of Systems - Review of Systems Cardiovascular: negative: chest pain, palpitations, orthopnea, paroxysmal nocturnal dyspnea, edema, light headedness, other Gastrointestinal: negative: Nausea, Vomiting, Abdominal Pain, Diarrhea, Constipation, Melena, Hematochezia, Other - Medications/Allergies Allergies/Adverse Reactions: Allergies Allergy/AdvReac Type Severity Reaction Status Date / Time adhesive tape Allergy Verified 09/09/16 12:17 amlodipine Allergy Verified 07/03/18 23:55 atorvastatin [From Lipitor] Allergy Verified 07/03/18 23:55 ciprofloxacin [From Cipro] Allergy Verified 07/03/18 23:55 digoxin Allergy Verified 09/09/16 12:17 dronedarone [From Multaq] Allergy Verified 07/03/18 23:55 hydrochlorothiazide Allergy Verified 07/03/18 23:55 Latex, Natural Rubber Allergy Verified 09/09/16 12:17 Medications: Current Medications Acetaminophen (Tylenol) 650 mg PO Q4H PRN PRN Reason: Headache/Fever/Mild Pain (1-3) Last Admin: 07/07/18 18:42 Dose: 650 mg Acetaminophen (Tylenol) 650 mg [place] Q4H PRN PRN Reason: Headache/Fever/Mild Pain (1-3) Aspirin (Ecotrin) 81 mg PO HS [facility] Last Admin: 07/06/18 20:42 Dose: 81 mg Cephalexin (Keflex) 500 mg PO Q6HR [facility] Last Admin: 07/07/18 16:53 Dose: 500 mg Cholecalciferol (Vitamin D3) 5,000 units PO DAILY [facility] Last Admin: 07/07/18 09:04 Dose: 5,000 units Ezetimibe (Zetia) 10 mg PO HS [facility] Last Admin: 07/06/18 20:43 Dose: 10 mg Enoxaparin Sodium (Lovenox) 40 mg SC 0900 [facility] Last Admin: 07/07/18 09:05 Dose: 40 mg Famotidine (Pepcid) 20 mg PO BID [facility] Last Admin: 07/07/18 09:04 Dose: 20 mg Ferrous Sulfate (Feosol) 325 mg PO DAILY [facility] Last Admin: 07/07/18 09:04 Dose: 325 mg Furosemide (Lasix) 20 mg PO DAILY [facility] Last Admin: 07/07/18 09:04 Dose: 20 mg Levothyroxine Sodium (Synthroid) 100 mcg PO 0600 [facility] Last Admin: 07/07/18 05:40 Dose: 100 mcg Metoprolol Succinate (Toprol Xl) 150 mg PO HS [facility] Last Admin: 07/06/18 20:43 Dose: 150 mg Ondansetron HCl (Zofran Odt) 4 mg PO Q6H PRN PRN Reason: Nausea/Vomiting Ondansetron HCl (Zofran) 4 mg IVP Q6H PRN PRN Reason: Nausea/Vomiting Potassium Chloride (Klor-Con 10) 10 meq PO DAILY [facility] Last Admin: 07/07/18 09:04 Dose: 10 meq Senna/Docusate Sodium (Senokot S) 2 tab PO BID PRN PRN Reason: Constipation Last Admin: 07/06/18 08:52 Dose: 2 tab Sodium Chloride (Flush - Normal Saline) 10 ml IVF Q12HR [facility] Last Admin: 07/07/18 09:05 Dose: 10 ml Sodium Chloride (Flush - Normal Saline) 10 ml IVF PRN PRN PRN Reason: Saline Flush Zolpidem Tartrate (Ambien) 5 mg PO HSPRN PRN PRN Reason: Insomnia Last Admin: 07/07/18 00:03 Dose: 5 mg
[2018-07-08] MEDS: Acetaminophen 325 MG TAB PO PRN ×2 (00:03→17:11)
[2018-07-08] MEDS: Cephalexin 250 MG CAP PO SCH ×4 (00:03→17:11)
[2018-07-08] MEDS: Zolpidem Tartrate 5 MG TAB PO PRN (00:04)
[2018-07-08 05:51] LABS: #Lymphocytes 1.4 thou/uL (1.20-3.40); #Monocytes 0.7 thou/uL (0.11-0.59); #Neutrophils 4.3 thou/uL (1.40-6.50); %Basophils 0.6 % (0.0-1.0); %Eosinophils 0.4 % (0.0-10.0); %Lymphocytes 21.1 % (21.0-51.0); %Monocytes 11.1 % (0.0-10.0); %Neutrophils 66.7 % (42.0-75.0); Hemoglobin 13.5 g/dL (12.0-16.0); Mean Corpuscular HGB CONC 31.3 g/dL (32.0-36.0); Mean Corpuscular Hemoglobin 29.4 pg (27.0-31.0); Mean Corpuscular Volume 93.8 fL (78.0-98.0); Mean Platelet Volume 6.5 fL (7.4-10.4); Platelet Count 262 thou/uL (130-400); RBC Distribution Width 15.4 % (11.5-14.5); Red Blood Cell (RBC) Count 4.59 mill/uL (4.20-5.40); White Blood Cell (WBC) Count 6.5 thou/uL (4.8-10.8)
[2018-07-08] MEDS: Levothyroxine Sodium 100 MCG TAB PO SCH (05:59)
[2018-07-08 06:09] LABS: Anion Gap 16 mmol/L (10-20); BUN (Urea Nitrogen) 20 mg/dL (9.8-20.1); Calc. Creatinine Clearance 83 mL/min (70-130); Calcium 8.9 mg/dL (7.8-10.44); Carbon Dioxide 29 mmol/L (23-31); Chloride 90 mmol/L (98-107); Estimated GFR-MDRD 65; Glucose 81 mg/dL (83-110); Magnesium 2.2 mg/dL (1.6-2.6); Sodium 131 mmol/L (136-145)
[2018-07-08] MEDS: Furosemide 20 MG TAB PO SCH (09:15)
[2018-07-08] MEDS: Famotidine 20 MG TAB PO SCH ×2 (09:15→20:49)
[2018-07-08] MEDS: Potassium Chloride 10 MEQ TAB PO SCH (09:15)
[2018-07-08] MEDS: Ferrous Sulfate 325 MG TAB PO SCH (09:16)
[2018-07-08] MEDS: Enoxaparin Sodium 40 MG/0.4 ML SYRINGE SC SCH (09:16)
[2018-07-08] MEDS: Docusate 100 MG CAP PO SCH ×2 (09:17→20:50)
--- NOTE | 2018-07-08 15:29 | PDOC.PN ---
- Subjective Encounter Start Date: 07/08/18 Encounter Start Time: 13:00 - Objective Resuscitation Status - Order Detail: 07/03/18 19:55 Resuscitation Status Routine Resuscitation Status: DNAR: NO Resuscitation Discussed with: Patient SHEREEN Reviewed: Yes Vital Signs & Weight: Vital Signs (12 hours) Temp Pulse Resp BP Pulse Ox 07/08/18 09:14 94 L 07/08/18 08:00 98.0 F 58 L 16 126/70 94 L Weight Admit Weight 220 lb 9.6 oz Weight 212 lb 14.4 oz I&O: 07/07/18 07/08/18 07/09/18 06:59 06:59 06:59 Intake Total 1030 1460 Output Total 2200 Balance -1170 1460 Result Diagrams: 07/08/18 05:24 07/08/18 05:24 Phys Exam - Physical Examination Constitutional: NAD Respiratory: no wheezing, no rhonchi Cardiovascular: RRR, no rub Gastrointestinal: soft, non-tender, positive bowel sounds Musculoskeletal: edema present dressing + Neurological: moves all 4 limbs Dx/Plan (1) Acute exacerbation of CHF (congestive heart failure) Code(s): I50.9 - HEART FAILURE, UNSPECIFIED Status: Acute Comment: Acute on chronic diastolic HF (2) Cellulitis Code(s): L03.90 - CELLULITIS, UNSPECIFIED Status: Acute Qualifiers: Site of cellulitis: extremity Site of cellulitis of extremity: lower extremity Laterality: left Qualified Code(s): L03.116 - Cellulitis of left lower limb (3) Hyponatremia Code(s): E87.1 - HYPO-OSMOLALITY AND HYPONATREMIA Status: Acute (4) Hypertension Code(s): I10 - ESSENTIAL (PRIMARY) HYPERTENSION Status: Chronic Qualifiers: Hypertension type: essential hypertension Qualified Code(s): I10 - Essential (primary) hypertension Comment: well controlled (5) Hypothyroidism Code(s): E03.9 - HYPOTHYROIDISM, UNSPECIFIED Status: Chronic Comment: on levothyroxine (6) Morbid obesity Code(s): E66.01 - MORBID (SEVERE) OBESITY DUE TO EXCESS CALORIES Status: Chronic (7) Other issues per previous notes - Plan cont current plan of care, continue antibiotics, DVT proph w/SCDs Await Rehab approval -: Stable for dc -: Cont current meds as below Review of Systems - Review of Systems Cardiovascular: negative: chest pain, palpitations, orthopnea, paroxysmal nocturnal dyspnea, edema, light headedness, other Gastrointestinal: negative: Nausea, Vomiting, Abdominal Pain, Diarrhea, Constipation, Melena, Hematochezia, Other - Medications/Allergies Allergies/Adverse Reactions: Allergies Allergy/AdvReac Type Severity Reaction Status Date / Time adhesive tape Allergy Verified 09/09/16 12:17 amlodipine Allergy Verified 07/03/18 23:55 atorvastatin [From Lipitor] Allergy Verified 07/03/18 23:55 ciprofloxacin [From Cipro] Allergy Verified 07/03/18 23:55 digoxin Allergy Verified 09/09/16 12:17 dronedarone [From Multaq] Allergy Verified 07/03/18 23:55 hydrochlorothiazide Allergy Verified 07/03/18 23:55 Latex, Natural Rubber Allergy Verified 09/09/16 12:17 Medications: Current Medications Acetaminophen (Tylenol) 650 mg PO Q4H PRN PRN Reason: Headache/Fever/Mild Pain (1-3) Last Admin: 07/08/18 00:03 Dose: 650 mg Acetaminophen (Tylenol) 650 mg [place] Q4H PRN PRN Reason: Headache/Fever/Mild Pain (1-3) Aspirin (Ecotrin) 81 mg PO HS [facility] Last Admin: 07/07/18 20:46 Dose: 81 mg Cephalexin (Keflex) 500 mg PO Q6HR [facility] Last Admin: 07/08/18 12:33 Dose: 500 mg Cholecalciferol (Vitamin D3) 5,000 units PO DAILY [facility] Last Admin: 07/08/18 09:15 Dose: 5,000 units Docusate Sodium (Colace) 100 mg PO BID [facility] Last Admin: 07/08/18 09:17 Dose: 100 mg Ezetimibe (Zetia) 10 mg PO HS [facility] Last Admin: 07/07/18 20:46 Dose: 10 mg Enoxaparin Sodium (Lovenox) 40 mg SC 0900 [facility] Last Admin: 07/08/18 09:16 Dose: 40 mg Famotidine (Pepcid) 20 mg PO BID [facility] Last Admin: 07/08/18 09:15 Dose: 20 mg Ferrous Sulfate (Feosol) 325 mg PO DAILY [facility] Last Admin: 07/08/18 09:16 Dose: 325 mg Furosemide (Lasix) 20 mg PO DAILY [facility] Last Admin: 07/08/18 09:15 Dose: 20 mg Levothyroxine Sodium (Synthroid) 100 mcg PO 0600 [facility] Last Admin: 07/08/18 05:59 Dose: 100 mcg Metoprolol Succinate (Toprol Xl) 150 mg PO HS [facility] Last Admin: 07/07/18 20:47 Dose: 150 mg Ondansetron HCl (Zofran Odt) 4 mg PO Q6H PRN PRN Reason: Nausea/Vomiting Ondansetron HCl (Zofran) 4 mg IVP Q6H PRN PRN Reason: Nausea/Vomiting Potassium Chloride (Klor-Con 10) 10 meq PO DAILY [facility] Last Admin: 07/08/18 09:15 Dose: 10 meq Senna/Docusate Sodium (Senokot S) 2 tab PO BID PRN PRN Reason: Constipation Last Admin: 07/06/18 08:52 Dose: 2 tab Sodium Chloride (Flush - Normal Saline) 10 ml IVF Q12HR [facility] Last Admin: 07/08/18 09:17 Dose: 10 ml Sodium Chloride (Flush - Normal Saline) 10 ml IVF PRN PRN PRN Reason: Saline Flush Zolpidem Tartrate (Ambien) 5 mg PO HSPRN PRN PRN Reason: Insomnia Last Admin: 07/08/18 00:04 Dose: 5 mg
[2018-07-08] MEDS ORDERED: Polyethylene Glycol 3350 17 GM Packet PO PRN (15:30)
[2018-07-08] MEDS: Ezetimibe 10 MG TAB PO SCH (20:49)
[2018-07-08] MEDS: Aspirin 81 mg Enteric Coated Tablet PO SCH (20:50)
[2018-07-09] MEDS: Zolpidem Tartrate 5 MG TAB PO PRN (00:16)
[2018-07-09] MEDS: Cephalexin 250 MG CAP PO SCH ×4 (00:16→18:11)
[2018-07-09] MEDS: Levothyroxine Sodium 100 MCG TAB PO SCH (05:06)
[2018-07-09] MEDS: Famotidine 20 MG TAB PO SCH ×2 (09:40→21:25)
[2018-07-09] MEDS: Ferrous Sulfate 325 MG TAB PO SCH (09:41)
[2018-07-09] MEDS: Docusate 100 MG CAP PO SCH ×2 (09:41→21:25)
[2018-07-09] MEDS: Enoxaparin Sodium 40 MG/0.4 ML SYRINGE SC SCH (09:41)
[2018-07-09] MEDS: Furosemide 20 MG TAB PO SCH (09:41)
[2018-07-09] MEDS: Potassium Chloride 10 MEQ TAB PO SCH (09:41)
--- NOTE | 2018-07-09 20:18 | PDOC.PN ---
- Subjective Encounter Start Date: 07/09/18 Encounter Start Time: 10:45 Patient seen and examined for Cellulitis. No new complaints. No overnight events - Objective Resuscitation Status - Order Detail: 07/03/18 19:55 Resuscitation Status Routine Resuscitation Status: DNAR: NO Resuscitation Discussed with: Patient SHEREEN Reviewed: Yes Vital Signs & Weight: Weight Admit Weight 220 lb 9.6 oz Weight 214 lb 3.2 oz I&O: 07/08/18 07/09/18 07/10/18 06:59 06:59 06:59 Intake Total 1460 1020 280 Balance 1460 1020 280 Result Diagrams: 07/08/18 05:24 07/08/18 05:24 Phys Exam - Physical Examination Constitutional: NAD Respiratory: no wheezing, no rhonchi Cardiovascular: RRR, no rub Gastrointestinal: soft, non-tender, positive bowel sounds Musculoskeletal: no edema dressing + Neurological: moves all 4 limbs Dx/Plan (1) Acute exacerbation of CHF (congestive heart failure) Code(s): I50.9 - HEART FAILURE, UNSPECIFIED Status: Acute Comment: Acute on chronic diastolic HF (2) Cellulitis Code(s): L03.90 - CELLULITIS, UNSPECIFIED Status: Acute Qualifiers: Site of cellulitis: extremity Site of cellulitis of extremity: lower extremity Laterality: left Qualified Code(s): L03.116 - Cellulitis of left lower limb (3) Hyponatremia Code(s): E87.1 - HYPO-OSMOLALITY AND HYPONATREMIA Status: Acute (4) Hypertension Code(s): I10 - ESSENTIAL (PRIMARY) HYPERTENSION Status: Chronic Qualifiers: Hypertension type: essential hypertension Qualified Code(s): I10 - Essential (primary) hypertension Comment: well controlled (5) Hypothyroidism Code(s): E03.9 - HYPOTHYROIDISM, UNSPECIFIED Status: Chronic Comment: on levothyroxine (6) Morbid obesity Code(s): E66.01 - MORBID (SEVERE) OBESITY DUE TO EXCESS CALORIES Status: Chronic (7) Other issues per previous notes - Plan cont current plan of care, plan discussed w/ family, continue antibiotics, PT/OT , DVT proph w/lovenox, DVT proph w/SCDs Await placement -: Cont current meds as below -: Stable for dc Review of Systems - Review of Systems Cardiovascular: negative: chest pain, palpitations, orthopnea, paroxysmal nocturnal dyspnea, edema, light headedness, other Gastrointestinal: negative: Nausea, Vomiting, Abdominal Pain, Diarrhea, Constipation, Melena, Hematochezia, Other - Medications/Allergies Allergies/Adverse Reactions: Allergies Allergy/AdvReac Type Severity Reaction Status Date / Time adhesive tape Allergy Verified 09/09/16 12:17 amlodipine Allergy Verified 07/03/18 23:55 atorvastatin [From Lipitor] Allergy Verified 07/03/18 23:55 ciprofloxacin [From Cipro] Allergy Verified 07/03/18 23:55 digoxin Allergy Verified 09/09/16 12:17 dronedarone [From Multaq] Allergy Verified 07/03/18 23:55 hydrochlorothiazide Allergy Verified 07/03/18 23:55 Latex, Natural Rubber Allergy Verified 09/09/16 12:17 Medications: Current Medications Acetaminophen (Tylenol) 650 mg PO Q4H PRN PRN Reason: Headache/Fever/Mild Pain (1-3) Last Admin: 07/08/18 17:11 Dose: 650 mg Acetaminophen (Tylenol) 650 mg [place] Q4H PRN PRN Reason: Headache/Fever/Mild Pain (1-3) Aspirin (Ecotrin) 81 mg PO HS [facility] Last Admin: 07/08/18 20:50 Dose: 81 mg Cephalexin (Keflex) 500 mg PO Q6HR [facility] Last Admin: 07/09/18 18:11 Dose: 500 mg Cholecalciferol (Vitamin D3) 5,000 units PO DAILY [facility] Last Admin: 07/09/18 09:40 Dose: 5,000 units Docusate Sodium (Colace) 100 mg PO BID [facility] Last Admin: 07/09/18 09:41 Dose: 100 mg Ezetimibe (Zetia) 10 mg PO HS [facility] Last Admin: 07/08/18 20:49 Dose: 10 mg Enoxaparin Sodium (Lovenox) 40 mg SC 0900 [facility] Last Admin: 07/09/18 09:41 Dose: 40 mg Famotidine (Pepcid) 20 mg PO BID [facility] Last Admin: 07/09/18 09:40 Dose: 20 mg Ferrous Sulfate (Feosol) 325 mg PO DAILY [facility] Last Admin: 07/09/18 09:41 Dose: 325 mg Furosemide (Lasix) 20 mg PO DAILY [facility] Last Admin: 07/09/18 09:41 Dose: 20 mg Levothyroxine Sodium (Synthroid) 100 mcg PO 0600 [facility] Last Admin: 07/09/18 05:06 Dose: 100 mcg Metoprolol Succinate (Toprol Xl) 150 mg PO HS [facility] Last Admin: 07/08/18 20:49 Dose: 150 mg Ondansetron HCl (Zofran Odt) 4 mg PO Q6H PRN PRN Reason: Nausea/Vomiting Ondansetron HCl (Zofran) 4 mg IVP Q6H PRN PRN Reason: Nausea/Vomiting Polyethylene Glycol (Miralax) 17 gm PO DAILY PRN PRN Reason: Constipation Last Admin: 07/09/18 13:10 Dose: 17 gm Potassium Chloride (Klor-Con 10) 10 meq PO DAILY [facility] Last Admin: 07/09/18 09:41 Dose: 10 meq Senna/Docusate Sodium (Senokot S) 2 tab PO BID PRN PRN Reason: Constipation Last Admin: 07/06/18 08:52 Dose: 2 tab Sodium Chloride (Flush - Normal Saline) 10 ml IVF Q12HR [facility] Last Admin: 07/09/18 09:41 Dose: 10 ml Sodium Chloride (Flush - Normal Saline) 10 ml IVF PRN PRN PRN Reason: Saline Flush Zolpidem Tartrate (Ambien) 5 mg PO HSPRN PRN PRN Reason: Insomnia Last Admin: 07/09/18 00:16 Dose: 5 mg
[2018-07-09] MEDS: Ezetimibe 10 MG TAB PO SCH (21:25)
[2018-07-09] MEDS: Aspirin 81 mg Enteric Coated Tablet PO SCH (21:25)
[2018-07-10] MEDS: Zolpidem Tartrate 5 MG TAB PO PRN ×2 (00:36→23:53)
[2018-07-10] MEDS: Cephalexin 250 MG CAP PO SCH ×5 (00:36→23:53)
[2018-07-10] MEDS: Levothyroxine Sodium 100 MCG TAB PO SCH (05:03)
[2018-07-10] MEDS: Ferrous Sulfate 325 MG TAB PO SCH (08:21)
[2018-07-10] MEDS: Furosemide 20 MG TAB PO SCH (08:21)
[2018-07-10] MEDS: Enoxaparin Sodium 40 MG/0.4 ML SYRINGE SC SCH (08:21)
[2018-07-10] MEDS: Potassium Chloride 10 MEQ TAB PO SCH (08:21)
[2018-07-10] MEDS: Docusate 100 MG CAP PO SCH ×2 (08:22→20:37)
[2018-07-10] MEDS: Famotidine 20 MG TAB PO SCH ×2 (08:22→20:38)
[2018-07-10] MEDS: Aspirin 81 mg Enteric Coated Tablet PO SCH (20:37)
[2018-07-10] MEDS: Ezetimibe 10 MG TAB PO SCH (20:38)
--- NOTE | 2018-07-10 21:21 | PDOC.PN ---
- Subjective Encounter Start Date: 07/10/18 Encounter Start Time: 12:00 Patient seen and examined for CHF/Cellulitis. No new complaints. No overnight events - Objective Resuscitation Status - Order Detail: 07/03/18 19:55 Resuscitation Status Routine Resuscitation Status: DNAR: NO Resuscitation Discussed with: Patient SHEREEN Reviewed: Yes Vital Signs & Weight: Vital Signs (12 hours) Temp Pulse Resp BP Pulse Ox 07/10/18 20:45 97.8 F 77 20 155/90 H 94 L Weight Admit Weight 220 lb 9.6 oz Weight 213 lb 4.8 oz I&O: 07/09/18 07/10/18 07/11/18 06:59 06:59 06:59 Intake Total 1020 540 720 Balance 1020 540 720 Result Diagrams: 07/11/18 05:41 07/11/18 05:41 Phys Exam - Physical Examination Constitutional: NAD Respiratory: no wheezing, no rhonchi Cardiovascular: RRR, no rub Gastrointestinal: soft, non-tender, positive bowel sounds Musculoskeletal: no edema dressing + Dx/Plan (1) Acute exacerbation of CHF (congestive heart failure) Code(s): I50.9 - HEART FAILURE, UNSPECIFIED Status: Acute Comment: Acute on chronic diastolic HF (2) Cellulitis Code(s): L03.90 - CELLULITIS, UNSPECIFIED Status: Acute Qualifiers: Site of cellulitis: extremity Site of cellulitis of extremity: lower extremity Laterality: left Qualified Code(s): L03.116 - Cellulitis of left lower limb (3) Hyponatremia Code(s): E87.1 - HYPO-OSMOLALITY AND HYPONATREMIA Status: Acute (4) Hypertension Code(s): I10 - ESSENTIAL (PRIMARY) HYPERTENSION Status: Chronic Qualifiers: Hypertension type: essential hypertension Qualified Code(s): I10 - Essential (primary) hypertension Comment: well controlled (5) Hypothyroidism Code(s): E03.9 - HYPOTHYROIDISM, UNSPECIFIED Status: Chronic Comment: on levothyroxine (6) Morbid obesity Code(s): E66.01 - MORBID (SEVERE) OBESITY DUE TO EXCESS CALORIES Status: Chronic (7) Other issues per previous notes - Plan cont current plan of care, continue antibiotics, PT/OT, DVT proph w/SCDs Cont wound care -: Called [employer] - spoke to Med director - Rehab declined. SNF approved. -: DC to SNF once accepted -: Cont other meds as below -: AM labs. Stable for dc Review of Systems - Review of Systems Cardiovascular: negative: chest pain, palpitations, orthopnea, paroxysmal nocturnal dyspnea, edema, light headedness, other Gastrointestinal: negative: Nausea, Vomiting, Abdominal Pain, Diarrhea, Constipation, Melena, Hematochezia, Other - Medications/Allergies Allergies/Adverse Reactions: Allergies Allergy/AdvReac Type Severity Reaction Status Date / Time adhesive tape Allergy Verified 09/09/16 12:17 amlodipine Allergy Verified 07/03/18 23:55 atorvastatin [From Lipitor] Allergy Verified 07/03/18 23:55 ciprofloxacin [From Cipro] Allergy Verified 07/03/18 23:55 digoxin Allergy Verified 09/09/16 12:17 dronedarone [From Multaq] Allergy Verified 07/03/18 23:55 hydrochlorothiazide Allergy Verified 07/03/18 23:55 Latex, Natural Rubber Allergy Verified 09/09/16 12:17 Medications: Current Medications Acetaminophen (Tylenol) 650 mg PO Q4H PRN PRN Reason: Headache/Fever/Mild Pain (1-3) Last Admin: 07/08/18 17:11 Dose: 650 mg Acetaminophen (Tylenol) 650 mg NC Q4H PRN PRN Reason: Headache/Fever/Mild Pain (1-3) Aspirin (Ecotrin) 81 mg PO HS [facility] Last Admin: 07/10/18 20:37 Dose: 81 mg Cephalexin (Keflex) 500 mg PO Q6HR [facility] Last Admin: 07/10/18 17:28 Dose: 500 mg Cholecalciferol (Vitamin D3) 5,000 units PO DAILY [facility] Last Admin: 07/10/18 08:21 Dose: 5,000 units Docusate Sodium (Colace) 100 mg PO BID [facility] Last Admin: 07/10/18 20:37 Dose: 100 mg Ezetimibe (Zetia) 10 mg PO HS [facility] Last Admin: 07/10/18 20:38 Dose: 10 mg Enoxaparin Sodium (Lovenox) 40 mg SC 0900 [facility] Last Admin: 07/10/18 08:21 Dose: 40 mg Famotidine (Pepcid) 20 mg PO BID [facility] Last Admin: 07/10/18 20:38 Dose: 20 mg Ferrous Sulfate (Feosol) 325 mg PO DAILY [facility] Last Admin: 07/10/18 08:21 Dose: 325 mg Furosemide (Lasix) 20 mg PO DAILY [facility] Last Admin: 07/10/18 08:21 Dose: 20 mg Levothyroxine Sodium (Synthroid) 100 mcg PO 0600 [facility] Last Admin: 07/10/18 05:03 Dose: 100 mcg Metoprolol Succinate (Toprol Xl) 150 mg PO HS [facility] Last Admin: 07/10/18 20:38 Dose: 150 mg Ondansetron HCl (Zofran Odt) 4 mg PO Q6H PRN PRN Reason: Nausea/Vomiting Ondansetron HCl (Zofran) 4 mg IVP Q6H PRN PRN Reason: Nausea/Vomiting Polyethylene Glycol (Miralax) 17 gm PO DAILY PRN PRN Reason: Constipation Last Admin: 07/09/18 13:10 Dose: 17 gm Potassium Chloride (Klor-Con 10) 10 meq PO DAILY [facility] Last Admin: 07/10/18 08:21 Dose: 10 meq Senna/Docusate Sodium (Senokot S) 2 tab PO BID PRN PRN Reason: Constipation Last Admin: 07/06/18 08:52 Dose: 2 tab Sodium Chloride (Flush - Normal Saline) 10 ml IVF Q12HR [facility] Last Admin: 07/10/18 20:39 Dose: 10 ml Sodium Chloride (Flush - Normal Saline) 10 ml IVF PRN PRN PRN Reason: Saline Flush Zolpidem Tartrate (Ambien) 5 mg PO HSPRN PRN PRN Reason: Insomnia Last Admin: 07/10/18 00:36 Dose: 5 mg
[2018-07-11] MEDS: Cephalexin 250 MG CAP PO SCH ×2 (05:17→11:56)
[2018-07-11] MEDS: Levothyroxine Sodium 100 MCG TAB PO SCH (05:17)
[2018-07-11 05:57] LABS: #Basophils 0.1 thou/uL (0.0-0.2); #Lymphocytes 1.2 thou/uL (1.20-3.40); #Monocytes 0.7 thou/uL (0.11-0.59); #Neutrophils 3.7 thou/uL (1.40-6.50); %Basophils 1.4 % (0.0-1.0); %Eosinophils 0.2 % (0.0-10.0); %Lymphocytes 20.5 % (21.0-51.0); %Monocytes 11.7 % (0.0-10.0); %Neutrophils 66.2 % (42.0-75.0); Hemoglobin 13.4 g/dL (12.0-16.0); Mean Corpuscular HGB CONC 30.9 g/dL (32.0-36.0); Mean Corpuscular Hemoglobin 29.3 pg (27.0-31.0); Mean Corpuscular Volume 94.9 fL (78.0-98.0); Mean Platelet Volume 6.3 fL (7.4-10.4); Platelet Count 277 thou/uL (130-400); RBC Distribution Width 15.5 % (11.5-14.5); Red Blood Cell (RBC) Count 4.56 mill/uL (4.20-5.40); White Blood Cell (WBC) Count 5.7 thou/uL (4.8-10.8)
[2018-07-11 06:13] LABS: Anion Gap 14 mmol/L (10-20); BUN (Urea Nitrogen) 20 mg/dL (9.8-20.1); Calc. Creatinine Clearance 89 mL/min (70-130); Calcium 8.8 mg/dL (7.8-10.44); Carbon Dioxide 30 mmol/L (23-31); Chloride 94 mmol/L (98-107); Estimated GFR-MDRD 69; Glucose 86 mg/dL (83-110); Sodium 134 mmol/L (136-145)
[2018-07-11 08:27] VITALS: BP 119/66; TEMP 98.1
[2018-07-11] MEDS: Enoxaparin Sodium 40 MG/0.4 ML SYRINGE SC SCH (09:01)
[2018-07-11] MEDS: Docusate 100 MG CAP PO SCH (09:01)
[2018-07-11] MEDS: Famotidine 20 MG TAB PO SCH (09:01)
[2018-07-11] MEDS: Ferrous Sulfate 325 MG TAB PO SCH (09:02)
[2018-07-11] MEDS: Furosemide 20 MG TAB PO SCH (09:02)
[2018-07-11] MEDS: Potassium Chloride 10 MEQ TAB PO SCH (09:02)
[2018-07-11 11:52] VITALS: BMI 40.4
--- NOTE | 2018-07-11 19:43 | DIS ---
DATE OF ADMISSION: 07/03/2018 DATE OF DISCHARGE: 07/11/2018 DISCHARGE DISPOSITION: Home with home health care. CODE STATUS: Do not resuscitate. DISCHARGE MEDICATIONS: 1. Keflex 500 mg three times daily #20. 2. Lasix 20 mg daily. 3. Florastor 250 mg daily. All other home medications were left unchanged. DISCHARGE CONDITION: The patient was seen on the day of discharge. Denies any new complaints. BRIEF HOSPITAL COURSE: The patient is a 78-year-old female with atrial fibrillation, hypertension, hypothyroidism, and diastolic heart failure, presented to the hospital on 03 July 2018 with left lower extremity cellulitis along with shortness of breath. Her workup was consistent with congestive heart failure exacerbation with cellulitis. She showed good improvement with IV diuretics that has been changed to oral. She was initially placed on vancomycin and Zosyn, that has been changed to p.o. Echocardiogram showed ejection fraction 50% to 55%. She was also evaluated by Cardiology. She has been cleared for discharge by Cardiology. Initially, she decided on inpatient rehabilitation. Over the last 3 days, the patient has been waiting for insurance approval. Yesterday after [id number] discussion, the insurance company approved senior living facility. However, on the day of discharge, the patient changed her mind and decided to go home with home health care. She also had significant hyponatremia with sodium 126 on admission that has improved to 134 at discharge. She will benefit from a CMP after 1 week. FINAL DIAGNOSES: 1. Acute on chronic diastolic heart failure exacerbation. 2. Left lower extremity cellulitis. 3. Hyponatremia, improved. 4. Hypertension. 5. Paroxysmal atrial fibrillation. 6. Hypothyroidism. 7. Hypertension. 8. Morbid obesity with a BMI of 40.4. 9. Gastroesophageal reflux disease. 10. The patient is not a candidate for full anticoagulation due to advanced age. Total time coordinating the discharge of this patient was 33 minutes. Job ID: [id number]
== END 2018-07-11 14:11 | disposition home health service (06) | DRG 602 ==
LOC: ERS 15:13 → T4-B 19:39
PROVIDERS: ADMIT Emergency Medicine; ATTEND Emergency Medicine
DX: L03.116 Cellulitis of left lower limb (principal); I50.33 Acute on chronic diastolic (congestive) heart failure; E87.1 Hypo-osmolality and hyponatremia; Z68.41 Body mass index [BMI] 40.0-44.9, adult; I11.0 Hypertensive heart disease with heart failure; I48.0 Paroxysmal atrial fibrillation; E66.01 Morbid (severe) obesity due to excess calories; Z66 Do not resuscitate; E03.9 Hypothyroidism, unspecified; K21.9 Gastro-esophageal reflux disease without esophagitis; Z87.891 Personal history of nicotine dependence; Z88.1 Allergy status to other antibiotic agents; Z91.040 Latex allergy status; Z88.8 Allergy status to other drugs, medicaments and biological substances; Z79.82 Long term (current) use of aspirin; Z79.899 Other long term (current) drug therapy
CPT/HCPCS: 36415; 80048; 80053; 80202; 83605; 83735; 83880; 84484; 85025; 87040; 93306; 93798; 96365; 96367; J0692; J1650; J1940; J2543; J3370; J7050

== ENCOUNTER 2018-08-14 12:50 | Inpatient (IN) | payer MEDICARE ==
[2018-08-14 14:51] LABS: #Monocytes 0.5 thou/uL (0.11-0.59); #Neutrophils 5.9 thou/uL (1.40-6.50); %Basophils 0.1 % (0.0-1.0); %Eosinophils 0.2 % (0.0-10.0); %Lymphocytes 12.8 % (21.0-51.0); %Monocytes 6.9 % (0.0-10.0); Mean Corpuscular HGB CONC 31.2 g/dL (32.0-36.0); Mean Corpuscular Hemoglobin 29.9 pg (27.0-31.0); Mean Corpuscular Volume 96.1 fL (78.0-98.0); Mean Platelet Volume 6.9 fL (7.4-10.4); Platelet Count 175 thou/uL (130-400); RBC Distribution Width 17.5 % (11.5-14.5); Red Blood Cell (RBC) Count 4.34 mill/uL (4.20-5.40); White Blood Cell (WBC) Count 7.4 thou/uL (4.8-10.8)
[2018-08-14 15:05] LABS: ALT (SGPT) 8 U/L (8-55); AST (SGOT) 27 U/L (5-34); Albumin 3.5 g/dL (3.4-4.8); Alkaline Phosphatase 117 U/L (40-150); Anion Gap 16 mmol/L (10-20); BUN (Urea Nitrogen) 25 mg/dL (9.8-20.1); Bilirubin, Total 4.9 mg/dL (0.2-1.2); Calc. Creatinine Clearance 0 mL/min (70-130); Calcium 9.3 mg/dL (7.8-10.44); Carbon Dioxide 27 mmol/L (23-31); Chloride 93 mmol/L (98-107); Estimated GFR-MDRD 54; Globulin 4.4 g/dL (2.4-3.5); Glucose 101 mg/dL (83-110); Potassium 4.1 mmol/L (3.5-5.1); Protein, Total 7.9 g/dL (6.0-8.3); Sodium 132 mmol/L (136-145)
[2018-08-14] MEDS ORDERED: cefTRIAXone\\ROCEPHIN 1 GM VIAL ONE (17:08)
[2018-08-14 17:57] LABS: Bilirubin Small (Negative); Blood, Urine Large (Negative); Clarity CLOUDY (Clear); Glucose, Urine (Dipstick) Negative (Negative); Leukocyte Trace (Negative); Nitrite Negative (Negative); Protein, Urine (Dipstick) 30 mg/dL (Neg-Trace); Specific Gravity, Urine 1.025 (1.002-1.036); pH, Urine 5.5 (5.0-9.0)
[2018-08-14 17:59] LABS: WBC/HPF 0-3 HPF (0-3)
[2018-08-14 18:02] LABS: Yeast-AUWi Flag 56.9 (0-25.0)
[2018-08-14 18:17] LABS: Bacteria/HPF Rare-Few HPF (None Seen); Hyaline Casts/LPF 0-3 HYALINE CAST LPF (0-3 Hyaline); Other Casts/LPF None Seen LPF (0-3 Hyaline); Yeast-All Forms None Seen HPF (None Seen)
--- NOTE | 2018-08-14 20:18 | ULT ---
LEFT LOWER EXTREMITY VENOUS DUPLEX EXAM: 08/14/18 HISTORY: Leg pain and swelling. Cellulitis. Real time color doppler evaluation of the left lower extremity was performed from groin to calf. Thi s includes evaluation of the common femoral, superficial and profunda femoral, saphenous, popliteal, and posterior tibial veins. Portions of the mid to distal superficial femoral vein cannot be seen due to swelling and edema but no evidence for DVT. Normal compressibility and augmentation in the visual ized deep venous system. IMPRESSION: No evidence of DVT of the left lower extremity. POS: GAEL
[2018-08-14] MEDS ORDERED: Ondansetron PF 4 MG/2 ML Vial IVP PRN (21:23)
[2018-08-14] MEDS ORDERED: Ondansetron ODT 4 MG TAB PO PRN (21:23)
[2018-08-14] MEDS ORDERED: MENTHOL TOP PRN (21:33)
[2018-08-14] MEDS ORDERED: Polyethylene Glycol 3350 17 GM Packet PO PRN (21:33)
[2018-08-14] MEDS ORDERED: ZINC OXIDE TOP PRN (21:33)
[2018-08-14] MEDS ORDERED: Cyanocobalamin 1000 MCG/ML VIAL IM SCH (21:45)
[2018-08-15] MEDS: Acetaminophen 325 MG TAB PO PRN (02:24)
--- NOTE | 2018-08-15 04:24 | HP ---
PRIMARY CARE PHYSICIAN: Elliot Sands MD CODE STATUS: Full code. TIME OF EVALUATION: 7:30 p.m. CHIEF COMPLAINT: Left lower extremity swelling or redness. HISTORY OF PRESENT ILLNESS: A 78-year-old female patient with past medical history of coronary artery disease, arrhythmia, atrial fibrillation, hypothyroidism, hypertension, cellulitis, came to the hospital after having severe left lower extremity swelling with no clear triggers, no alleviating factors. The patient reported having cellulitis and receiving treatments around the past month and had some improvement with them and now has come back with the same symptoms. The patient has pain associated in the left lower extremity. Symptoms started a few days ago and is gradually getting worse. REVIEW OF SYSTEMS: CONSTITUTIONAL: No fever, chills, or generalized weakness. RESPIRATORY: No cough, sputum production, or shortness of breath. CARDIOVASCULAR: No chest pain or palpitation. GASTROINTESTINAL: No nausea. No vomiting, diarrhea, or abdominal pain. RADIO DISC JOCKEY: No dizziness, headache or feeling lightheaded. GENITOURINARY: No burning on urination. EXTREMITIES: Left lower extremity swelling and redness with tenderness. Decreased range of motion. All other systems were reviewed and negative except for the findings mentioned above. PAST MEDICAL HISTORY: As mentioned in the HPI. PAST SURGICAL HISTORY: Ablation x5, orthopedic surgery, right knee replacement, endometriosis. PSYCH HISTORY: No previous psych history. SOCIAL HISTORY: The patient quit smoking more than 10 years ago. The patient smoked for a few years. FAMILY HISTORY: Reviewed and noncontributory to current presentation. KNOWN ALLERGIES: Adhesive tape, amlodipine, Cipro, digoxin, hydrochlorothiazide, latex Lipitor, Multaq, sulfa. REPORTED MEDICATIONS: 1. Synthroid. 2. Lasix. 3. Potassium. 4. Ferrous sulfate. 5. Ranitidine. 6. Zetia. 7. . 8. Metoprolol. 9. Aspirin. PHYSICAL EXAMINATION: VITAL SIGNS: On presentation, blood pressure 117/70 with heart rate 69, respiratory rate was 17, temperature 97.9, pain 2/10, oxygen saturation was 97% on room air. GENERAL APPEARANCE: The patient is alert, oriented, not in acute distress. HEENT: Eyes, normal conjunctivae. Moist oral mucosa. Anicteric. No JVD. RESPIRATORY: Bilateral air entry. No rales. No wheezes. Symmetric expansion. CARDIOVASCULAR: Normal rate and regular rhythm. No murmurs. No gallops. No edema. ABDOMEN: Soft. Normal bowel sounds. MUSCULOSKELETAL: Baseline range of motion and strength. No tenderness. SKIN: Warm, intact. No pallor. No rash. No redness except for left lower extremity. The patient has significant redness, swelling, tenderness, decreased range of motion due to pain. Peripheral pulses are present. Capillary refill seems to be intact. NEUROLOGIC: No evidence of any new focal weakness. Baseline speech. Cranial nerves seems to be intact. PSYCH: The patient is in good mood. No anxiety. Optimal judgment. LABORATORY DATA: Labs were reviewed. The patient has white count 7.4, hemoglobin 13, MCV 96.1, platelet count 175. D-dimer was 3.8. Sodium 132, potassium 4.1, chloride 93, carbon dioxide 27, anion gap 16, BUN 25, creatinine 0.99, GFR 54, glucose 101, lactic acid 1.3, total bilirubin 4.9, direct bilirubin 1.8, AST 27, ALT 8, alkaline phosphatase 117, globulin 4.4. Urine was done and was positive for some rbc's, but no white count seen in the urine. Vascular ultrasound was done and reviewed. The patient has no evidence of DVT in the left lower extremity. ASSESSMENT AND PLAN: The patient has been placed in the hospital with following medical problems: 1. Left lower extremity cellulitis. The patient has had similar episodes in the past. We will start the patient on broad-spectrum antibiotics, blood cultures, we will treat accordingly. 2. History of coronary artery disease. We will reconcile home medications. This problem is chronic, seems to be stable. 3. History of atrial fibrillation. This problem is chronic, seems to be stable, reconcile home medications. 4. Hypothyroidism, chronic problem, stable. Continue hormone replacement. 5. Controlled hypertension. This is chronic, reconcile home medications. Adjust treatment as needed. 6. Deep venous thrombosis prophylaxis. Job ID: [id number]
[2018-08-15 05:13] LABS: #Monocytes 0.6 thou/uL (0.11-0.59); #Neutrophils 4.3 thou/uL (1.40-6.50); %Eosinophils 0.2 % (0.0-10.0); %Lymphocytes 17.7 % (21.0-51.0); %Monocytes 9.7 % (0.0-10.0); %Neutrophils 72.4 % (42.0-75.0); Hemoglobin 11.3 g/dL (12.0-16.0); Mean Corpuscular HGB CONC 32.2 g/dL (32.0-36.0); Mean Corpuscular Hemoglobin 30.8 pg (27.0-31.0); Mean Corpuscular Volume 95.8 fL (78.0-98.0); Mean Platelet Volume 6.7 fL (7.4-10.4); Platelet Count 165 thou/uL (130-400); RBC Distribution Width 16.9 % (11.5-14.5); Red Blood Cell (RBC) Count 3.68 mill/uL (4.20-5.40); White Blood Cell (WBC) Count 5.9 thou/uL (4.8-10.8)
[2018-08-15 05:36] LABS: Anion Gap 9 mmol/L (10-20); BUN (Urea Nitrogen) 23 mg/dL (9.8-20.1); Calc. Creatinine Clearance 82 mL/min (70-130); Calcium 8.8 mg/dL (7.8-10.44); Carbon Dioxide 29 mmol/L (23-31); Chloride 96 mmol/L (98-107); Estimated GFR-MDRD 64; Glucose 109 mg/dL (83-110); Potassium 3.9 mmol/L (3.5-5.1); Sodium 130 mmol/L (136-145)
[2018-08-15] MEDS: Vancomycin HCl 750 MG in Sodium Chloride 0.9% 250 ML 250 ML IVPB SCH (06:45)
[2018-08-15] MEDS: Enoxaparin Sodium 40 MG/0.4 ML SYRINGE SC SCH (08:28)
[2018-08-15] MEDS: Ferrous Sulfate 325 MG TAB PO SCH (08:29)
[2018-08-15] MEDS: Loratadine 10 MG TAB PO SCH (08:29)
[2018-08-15] MEDS: Potassium Chloride 10 MEQ TAB PO SCH (08:29)
[2018-08-15] MEDS: Famotidine 20 MG TAB PO SCH ×2 (08:29→22:13)
[2018-08-15] MEDS: Furosemide 20 MG TAB PO SCH ×2 (08:29→22:12)
[2018-08-15] MEDS ORDERED: Levothyroxine Sodium 100 MCG TAB PO SCH (09:00)
--- NOTE | 2018-08-15 11:12 | PDOC.PN ---
- Subjective Encounter Start Date: 08/15/18 Encounter Start Time: 09:00 The patient is a pleasant 78 yo obese female with PMH signifcant for chronic diastolic CHF, HTN, and PAF who presented with worsening erythema and swelling of the LLE. She reports that her pain is improved this morning. She denies N/V. Her appetite is good. She denies any CP/SOB. She denies constitutional symptoms of fever or chills. - Objective Resuscitation Status - Order Detail: 08/14/18 21:23 Resuscitation Status Routine Resuscitation Status: FULL: Full Resuscitation MAR Reviewed: Yes Vital Signs & Weight: Vital Signs (12 hours) Temp Pulse Resp BP Pulse Ox 08/15/18 04:16 98 F 87 16 104/67 96 08/14/18 23:30 98.3 F 78 16 131/81 98 Weight Weight 212 lb 6.4 oz I&O: 08/14/18 08/15/18 08/16/18 06:59 06:59 06:59 Intake Total 360 60 Balance 360 60 Result Diagrams: 08/15/18 05:01 08/15/18 05:01 Phys Exam - Physical Examination HEENT: moist MMs Respiratory: clear to auscultation bilateral Cardiovascular: RRR, no rub soft systolic murmur Grade I/ Gastrointestinal: soft, non-tender, positive bowel sounds ecchymosis LUE, LLE shows eythema to knee/2 purulent ulcers, RLE shows erythema to mid akins, 2 + edema bilaterally Psychiatric: normal affect, A&O x 3 Dx/Plan (1) Diastolic heart failure Code(s): I50.30 - UNSPECIFIED DIASTOLIC (CONGESTIVE) HEART FAILURE Status: Chronic Qualifiers: Heart failure chronicity: chronic Qualified Code(s): I50.32 - Chronic diastolic (congestive) heart failure (2) Cellulitis Code(s): L03.90 - CELLULITIS, UNSPECIFIED Status: Acute Qualifiers: Site of cellulitis: extremity Laterality: left (3) Atrial fibrillation Code(s): I48.91 - UNSPECIFIED ATRIAL FIBRILLATION Status: Chronic (4) Hypertension Code(s): I10 - ESSENTIAL (PRIMARY) HYPERTENSION Status: Chronic Qualifiers: Hypertension type: essential hypertension Qualified Code(s): I10 - Essential (primary) hypertension Comment: well controlled (5) Hypothyroidism Code(s): E03.9 - HYPOTHYROIDISM, UNSPECIFIED Status: Chronic Comment: on levothyroxine (6) Morbid obesity Code(s): E66.01 - MORBID (SEVERE) OBESITY DUE TO EXCESS CALORIES Status: Chronic (7) Bilirubinemia Code(s): E80.6 - OTHER DISORDERS OF BILIRUBIN METABOLISM Status: Acute - Plan * . The patient has recurrent/worsening cellulitis; continue IV abx with Vanc and Rocephin. Consult wound care. I have ordered cultures of the weeping ulcers. Considering the patient's worsening symptoms and repeat admission, will consult Dr. Colunga for further antibiotic management Review of Systems - Medications/Allergies Allergies/Adverse Reactions: Allergies Allergy/AdvReac Type Severity Reaction Status Date / Time adhesive tape Allergy Verified 09/09/16 12:17 amlodipine Allergy Verified 07/03/18 23:55 atorvastatin [From Lipitor] Allergy Verified 07/03/18 23:55 ciprofloxacin [From Cipro] Allergy Verified 07/03/18 23:55 digoxin Allergy Verified 09/09/16 12:17 dronedarone [From Multaq] Allergy Verified 07/03/18 23:55 hydrochlorothiazide Allergy Verified 07/03/18 23:55 Latex, Natural Rubber Allergy Verified 09/09/16 12:17 Medications: Current Medications Acetaminophen (Tylenol) 650 mg PO Q4H PRN PRN Reason: Headache/Fever/Mild Pain (1-3) Last Admin: 08/15/18 02:24 Dose: 650 mg Aspirin (Ecotrin) 81 mg PO HS [facility] Cyanocobalamin (Vitamin B-12) 1,000 mcg IM Q28D [facility] Ezetimibe (Zetia) 10 mg PO HS [facility] Enoxaparin Sodium (Lovenox) 40 mg SC 0900 [facility] Last Admin: 08/15/18 08:28 Dose: 40 mg Famotidine (Pepcid) 20 mg PO BID [facility] Last Admin: 08/15/18 08:29 Dose: 20 mg Ferrous Sulfate (Feosol) 325 mg PO DAILY [facility] Last Admin: 08/15/18 08:29 Dose: 325 mg Furosemide (Lasix) 20 mg PO BID [facility] Last Admin: 08/15/18 08:29 Dose: 20 mg Ceftriaxone Sodium 1 gm/ (Sodium Chloride) 100 mls @ 200 mls/hr IVPB Q24HR [facility] Vancomycin HCl 750 mg/ Sodium (Chloride) 250 mls @ 166.667 mls/hr IVPB Q24H [facility] Last Admin: 08/15/18 06:45 Dose: 250 mls Levothyroxine Sodium (Synthroid) 100 mcg PO DAILY [facility] Last Admin: 08/15/18 08:29 Dose: 100 mcg Loratadine (Claritin) 10 mg PO DAILY [facility] Last Admin: 08/15/18 08:29 Dose: Not Given Metoprolol Succinate (Toprol Xl) 100 mg PO HS [facility] Miscellaneous Medication (Pharmacy To Dose) 1 each IVPB PRN PRN PRN Reason: Pharmacy to dose Non-Formulary Medication (Menthol/Zinc Oxide [Calmoseptine Ointment]) 1 applic TOP BID PRN PRN Reason: Itching Ondansetron HCl (Zofran Odt) 4 mg PO Q6H PRN PRN Reason: Nausea/Vomiting Ondansetron HCl (Zofran) 4 mg IVP Q6H PRN PRN Reason: Nausea/Vomiting Polyethylene Glycol (Miralax) 17 gm PO DAILY PRN PRN Reason: Constipation Potassium Chloride (Klor-Con 10) 10 meq PO DAILY [facility] Last Admin: 08/15/18 08:29 Dose: 10 meq Zolpidem Tartrate (Ambien) 5 mg PO HS PRN PRN Reason: Insomnia
[2018-08-15] MEDS ORDERED: cefTRIAXone Sodium 1,000 MG in Syringe 0 ML IVPB SCH (17:00)
[2018-08-15] MEDS: cefTRIAXone\\ROCEPHIN 1 GM in Sodium Chloride 0.9% 100 ML IVPB SCH (17:01)
[2018-08-15] MEDS ORDERED: Mag-Al 1200 mg/1200 mg/30 ML UDCUP PO PRN (17:18)
[2018-08-15] MEDS: Ezetimibe 10 MG TAB PO SCH (22:12)
[2018-08-15] MEDS: Aspirin 81 mg Enteric Coated Tablet PO SCH (22:12)
[2018-08-16] MEDS: Furosemide 20 MG TAB PO SCH ×2 (05:32→14:26)
[2018-08-16] MEDS ORDERED: Levothyroxine Sodium 100 MCG TAB PO SCH (06:00)
[2018-08-16] MEDS: Levothyroxine Sodium 100 MCG TAB PO SCH (06:01)
[2018-08-16] MEDS: Vancomycin HCl 750 MG in Sodium Chloride 0.9% 250 ML 250 ML IVPB SCH (06:01)
[2018-08-16 07:21] LABS: Vancomycin, Trough 15.9 ug/mL
[2018-08-16] MEDS: Loratadine 10 MG TAB PO SCH (08:30)
[2018-08-16 08:37] LABS: #Lymphocytes 1.6 thou/uL (1.20-3.40); #Monocytes 0.8 thou/uL (0.11-0.59); #Neutrophils 3.4 thou/uL (1.40-6.50); %Basophils 0.6 % (0.0-1.0); %Eosinophils 0.5 % (0.0-10.0); %Lymphocytes 26.9 % (21.0-51.0); %Monocytes 13.2 % (0.0-10.0); %Neutrophils 58.8 % (42.0-75.0); Hemoglobin 12.6 g/dL (12.0-16.0); Mean Corpuscular HGB CONC 31.2 g/dL (32.0-36.0); Mean Corpuscular Hemoglobin 30.2 pg (27.0-31.0); Mean Corpuscular Volume 96.8 fL (78.0-98.0); Mean Platelet Volume 6.9 fL (7.4-10.4); Platelet Count 202 thou/uL (130-400); RBC Distribution Width 17.3 % (11.5-14.5); Red Blood Cell (RBC) Count 4.16 mill/uL (4.20-5.40); White Blood Cell (WBC) Count 5.8 thou/uL (4.8-10.8)
[2018-08-16] MEDS: Enoxaparin Sodium 40 MG/0.4 ML SYRINGE SC SCH (08:47)
[2018-08-16] MEDS: Potassium Chloride 10 MEQ TAB PO SCH (08:47)
[2018-08-16] MEDS: Famotidine 20 MG TAB PO SCH ×2 (08:47→20:36)
[2018-08-16] MEDS: Ferrous Sulfate 325 MG TAB PO SCH (08:47)
[2018-08-16 08:59] LABS: ALT (SGPT) Less than 7 U/L (8-55); AST (SGOT) 24 U/L (5-34); Alkaline Phosphatase 111 U/L (40-150); Anion Gap 12 mmol/L (10-20); BUN (Urea Nitrogen) 19 mg/dL (9.8-20.1); Bilirubin, Total 3.1 mg/dL (0.2-1.2); Calc. Creatinine Clearance 85 mL/min (70-130); Calcium 8.9 mg/dL (7.8-10.44); Carbon Dioxide 27 mmol/L (23-31); Chloride 96 mmol/L (98-107); Estimated GFR-MDRD 66; Glucose 98 mg/dL (83-110); Potassium 3.8 mmol/L (3.5-5.1); Sodium 131 mmol/L (136-145)
[2018-08-16] MEDS ORDERED: Cyanocobalamin 1000 MCG/ML VIAL IM SCH (09:00)
--- NOTE | 2018-08-16 12:51 | PDOC.PN ---
- Subjective Encounter Start Date: 08/16/18 Encounter Start Time: 09:00 Ms. Escobar is a pleasant 78 year old female who has been admitted with worsening lower extremity cellulitis s/p failed IP/OP treatment last month. She also has a history or left humeral fracture several months ago. She denies CP and SOB. She denies any fevers or chills. Her lower extremity pain is controlled at this time. Her appetite is good. - Objective Resuscitation Status - Order Detail: 08/14/18 21:23 Resuscitation Status Routine Resuscitation Status: FULL: Full Resuscitation Vital Signs & Weight: Vital Signs (12 hours) Temp Pulse Resp BP Pulse Ox 08/16/18 08:00 98.0 F 64 22 H 137/82 94 L 08/16/18 04:00 98.0 F 66 16 109/68 95 Weight Weight 212 lb 6.4 oz I&O: 08/15/18 08/16/18 08/17/18 06:59 06:59 06:59 Intake Total 360 1160 Output Total 1000 Balance 360 160 Result Diagrams: 08/16/18 08:11 08/16/18 08:11 Phys Exam - Physical Examination Constitutional: NAD HEENT: moist MMs Neck: no nodes, no JVD Respiratory: clear to auscultation bilateral Cardiovascular: RRR, no significant murmur Gastrointestinal: soft, non-tender Hematoma/ecchymosis throughout LUE axilla radiating to breast. Large hematoma left side back/posterior Neurological: non-focal Psychiatric: normal affect, A&O x 3 Deviation from normal: Erythema/edema noted BLE, stable from yesterday/non- worsening Dx/Plan (1) Diastolic heart failure Code(s): I50.30 - UNSPECIFIED DIASTOLIC (CONGESTIVE) HEART FAILURE Status: Chronic Qualifiers: Heart failure chronicity: chronic Qualified Code(s): I50.32 - Chronic diastolic (congestive) heart failure (2) Cellulitis Code(s): L03.90 - CELLULITIS, UNSPECIFIED Status: Acute Qualifiers: Site of cellulitis: extremity Laterality: left (3) Atrial fibrillation Code(s): I48.91 - UNSPECIFIED ATRIAL FIBRILLATION Status: Chronic Comment: s /p multiple ablations and Watchman device (4) Hypertension Code(s): I10 - ESSENTIAL (PRIMARY) HYPERTENSION Status: Chronic Qualifiers: Hypertension type: essential hypertension Qualified Code(s): I10 - Essential (primary) hypertension Comment: well controlled (5) Hypothyroidism Code(s): E03.9 - HYPOTHYROIDISM, UNSPECIFIED Status: Chronic Comment: on levothyroxine (6) Morbid obesity Code(s): E66.01 - MORBID (SEVERE) OBESITY DUE TO EXCESS CALORIES Status: Chronic (7) Bilirubinemia Code(s): E80.6 - OTHER DISORDERS OF BILIRUBIN METABOLISM Status: Acute Comment: I suspect second to ecchymosis (8) Ecchymosis Code(s): R58 - HEMORRHAGE, NOT ELSEWHERE CLASSIFIED Status: Acute - Plan * . Awaiting ID consult with Dr. Colunga regarding antibiotic therapy given patient's worsening cellulitis and readmission. Regarding her ecchymosis, will continue to monitor; her Hgb is stable. Will order PT eval.
[2018-08-16] MEDS: cefTRIAXone\\ROCEPHIN 1 GM in Sodium Chloride 0.9% 100 ML IVPB SCH (16:28)
--- NOTE | 2018-08-16 16:44 | PDOC.EVN ---
Event Note - Event Note Event Note: Ms. Escobar was discussed with seen in junction with Kristine Stone PA-C. She is admitted to the hospital for continued cellulitis of the lower extremities. She was also noted to have a large bruise and hematoma on the left arm, flank, and back. She tells me this started about 2 weeks ago. She says he was putting on a coat, when she felt a pop, and then later noted the bruising on that side. She saw her Primary Care Physician, Dr. Nelly Sood about a week after it happened, and she recommended observation. She had a fracture of her left humerus back in September, and recently saw her Orthopedist in follow-up, after the bruising began and had X-ray's which did not demonstrate any new fracture. On exam there is extensive bruising on the left arm, chest, and torso, as well as the left flank. Lower extremities demonstrate bilateral erythema and swelling L>R Lab- HGB/HCT 12.6/40.3 Cellulitis- will continue the current antibiotics, and await ID recommendations Bruise and Hematoma on the left flank side- recommend continued observation- she have re-injured the [facility] where she fractured her humerus, as this area is particularly vascular. Her H&H is stable, especially given that this occurred over 2 weeks ago, which suggest that there is not continued bleeding. Will monitor her H&H periodically.
--- NOTE | 2018-08-16 17:22 | CON ---
DATE OF CONSULTATION: 08/16/2018 REASON FOR CONSULTATION: Cellulitis. HISTORY OF PRESENT ILLNESS: A 78-year-old who has a history of chronic supraventricular tachycardia with atrial flutter, multiple ablations in the past as well as Watchman procedure, hypertension, and obesity, who was admitted in July 03 because of worsening swelling in lower extremities and erythema. The edema apparently has been manifesting itself since March last year when her blood pressure medicines were changed. Apparently, she went to visit family members in [facility] and did not take her diuretics on purpose to avoid the increased urinary output associated with their intake. She developed recrudescence of inflammatory changes and was admitted in July 03. Cultures at that time included 2 sets of blood cultures, which were no growth in 5 days, and she was discharged on July 11 on Keflex, which she took for about 10 days. Now, she is readmitted by her personal physician, Dr. Nelly Sood because of worsening swelling again with pain in the left lower extremity extending towards the thigh. No headaches, visual symptoms, sore throat, odynophagia, or dysphagia. No dyspnea or chest pain. No abdominal pain or diarrhea. No genitourinary symptoms. No reported fever. PAST MEDICAL HISTORY: Supraventricular tachyarrhythmias with multiple ablations in the past, had been on anticoagulants, but not any longer; history of edema; history of cellulitis, treated recently; hypothyroidism; hypertension; and mitral regurgitation. PAST SURGICAL HISTORY: Includes total knee arthroplasty in right side and endometriosis resection. SOCIAL HISTORY: Former smoker. She uses a walker for mobility. FAMILY HISTORY: Coronary artery disease. ALLERGIES: 1. LATEX. 2. DIGOXIN. 3. MULTAQ. 4. NORVASC. 5. MOSTLY CIPRO RELATED GI SIDE EFFECTS. CURRENT MEDICATIONS: 1. Maalox. 2. Ecotrin. 3. Ceftriaxone. 4. Vitamin B12. 5. Lovenox. 6. Zetia. 7. Pepcid. 8. Lasix. 9. Synthroid. 10. Claritin. 11. Toprol. 12. Zofran. 14. Klor-Con. 15. Ambien. PHYSICAL EXAMINATION: VITAL SIGNS: T-max 98.3, blood pressure 140/80, pulse 75, respirations 20, and O2 saturation 95%. SKIN: Remarkable for the areas of stasis dermatitis, right and left lower extremities. In the left side, there is extension of this inflammatory erythema extending towards the medial aspect of the left thigh. There is one area of small opening or wound measuring about 0.4 cm in the lateral aspect of the proximal left leg with the yellow base, but serous drainage. The areas are tender to palpation on the left side, but not on the right side. The right side erythema is much shorter and extends only to about the lower third of the ankle. HEENT: She has no lymphadenopathy. Ocular movements conjugate. Oral cavity is not remarkable. NECK: Supple. LUNGS: Symmetric. Clear breath sounds. HEART: S1 and S2, regular rate. ABDOMEN: Soft. Not distended or tender. No ascites. No bladder distention. She is voiding in the urinal. EXTREMITIES: She is able to move extremities with some limitations. Pulses 1+ in dorsalis pedis. She has evidence of osteoarthrosis. The right TKR site does not appear inflamed. NEUROLOGIC: Her cognitive function appears to be intact. LABORATORY DATA: White cell count 5.8, hemoglobin 12.6, platelets 202 with 58% neutrophils. Sodium 131, creatinine 0.83 with AST 27, ALT 8, alkaline phosphatase 117. Albumin 3.5 and 3.0. Urinalysis with 0 to 3 wbc's. Vancomycin trough 15.9. Microbiology cultures from the little wound in the left leg with no organisms seen, few wbc's. Urine culture final negative and imaging studies include vascular ultrasound with no evidence of deep vein thrombosis at this moment. There is an echocardiogram from June with an EF 50% to 55%, diastolic function not assessed, moderately enlarged right ventricle cavity, severe tricuspid regurgitation. ASSESSMENT: Obesity, supraventricular tachycardias, possible pulmonary hypertension, chronic lower extremity edema with one episode of cellulitis recently treated with improvement and now recrudescence with what appears to be cellulitic process. 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 Eventual transition to Keflex, this seems to have worked the last time around, the difference now is that I would extend the Keflex for 2 weeks and after that transition her to pen VK 250 mg twice daily for a full year. The history of allergy, I do not think is legitimate, mostly GI symptoms were associated with amoxicillin or Augmentin administration. She will benefit from compressive dressing or compressive stockings to lower extremities eventually when the edema subsides. Job ID: [id number] [facility]
[2018-08-16] MEDS: Aspirin 81 mg Enteric Coated Tablet PO SCH (20:35)
[2018-08-16] MEDS: Ezetimibe 10 MG TAB PO SCH (20:36)
[2018-08-17] MEDS: Levothyroxine Sodium 100 MCG TAB PO SCH (05:33)
[2018-08-17] MEDS: Furosemide 20 MG TAB PO SCH ×2 (05:33→13:47)
[2018-08-17] MEDS: Loratadine 10 MG TAB PO SCH (08:02)
[2018-08-17] MEDS: Potassium Chloride 10 MEQ TAB PO SCH (08:03)
[2018-08-17] MEDS: Ferrous Sulfate 325 MG TAB PO SCH (08:03)
[2018-08-17] MEDS: Famotidine 20 MG TAB PO SCH ×2 (08:03→20:11)
[2018-08-17] MEDS: Enoxaparin Sodium 40 MG/0.4 ML SYRINGE SC SCH (08:03)
[2018-08-17] MEDS: cefTRIAXone\\ROCEPHIN 1 GM in Sodium Chloride 0.9% 100 ML IVPB SCH (16:49)
[2018-08-17] MEDS: Ezetimibe 10 MG TAB PO SCH (20:11)
[2018-08-17] MEDS: Aspirin 81 mg Enteric Coated Tablet PO SCH (20:11)
--- NOTE | 2018-08-17 23:27 | PRG ---
DATE OF SERVICE: 08/17/2018 SUBJECTIVE: The patient denies any new complaints. She feels somewhat better. No nausea, vomiting, diarrhea, or new skin rash reported. She was evaluated by Wound Care earlier today. She ambulated with Physical Therapy today. PHYSICAL EXAMINATION: VITAL SIGNS: Temperature 97.8, pulse 68, respirations 20, blood pressure 138/83, and O2 saturation 93% on room air. GENERAL: A 78-year-old female in no apparent distress. LUNGS: Clear to auscultation bilaterally. No wheezing, rales, or rhonchi. HEART: S1 and S2 present. Regular rate and rhythm. ABDOMEN: Soft and nontender. Bowel sounds present. EXTREMITIES: Bilateral lower extremity erythema, which is improving. Dressing noted over bilateral lower extremity. No calf tenderness. NEUROLOGIC: Grossly nonfocal. PSYCHIATRY: Alert, awake, and oriented x3. LABORATORY DATA: Lab findings: WBC 5.8, hemoglobin 12.6, hematocrit 40.3, platelet of 202. D-dimer 3.8. Chemistries showed BUN of 19, creatinine is 0.83, total bilirubin 4.9 on admission and 3.1 yesterday. Vancomycin trough was 15.9. Blood cultures negative. Wound culture showed rare normal skin jenny. Vascular ultrasound was negative for DVT. Current medications were reviewed. The patient is currently on ceftriaxone along with her home medications. IMPRESSION: 1. Left lower extremity cellulitis. 2. Chronic venous stasis. 3. Coronary artery disease. 4. Recent hospitalization for left lower extremity cellulitis. 5. Hypertension. 6. Paroxysmal atrial fibrillation. 7. Moderate obesity with a BMI of 40.4. 8. Gastroesophageal reflux disease. 9. Hypothyroidism. 10. Chronically elevated LFTs of unclear etiology. 11. Hyponatremia. PLAN: Ceftriaxone will be continued per Infectious Disease recommendation. We will continue wound care. We will continue all other home medications. The patient can probably be discharged in 24 to 48 hours on oral Keflex for 2 weeks. After that, penicillin VK 250 mg twice daily for a year. Continue wound care. Recheck labs in a.m. The patient is not a candidate for anticoagulation due to advanced age. Job ID: [id number]
[2018-08-18] MEDS: Acetaminophen 325 MG TAB PO PRN ×2 (01:54→20:37)
[2018-08-18] MEDS: Furosemide 20 MG TAB PO SCH ×2 (05:29→14:37)
[2018-08-18] MEDS: Levothyroxine Sodium 100 MCG TAB PO SCH (05:29)
[2018-08-18 07:03] LABS: #Basophils 0.1 thou/uL (0.0-0.2); #Lymphocytes 1.5 thou/uL (1.20-3.40); #Monocytes 0.7 thou/uL (0.11-0.59); #Neutrophils 2.7 thou/uL (1.40-6.50); %Basophils 1.4 % (0.0-1.0); %Eosinophils 0.4 % (0.0-10.0); %Lymphocytes 29.4 % (21.0-51.0); %Monocytes 14.3 % (0.0-10.0); %Neutrophils 54.5 % (42.0-75.0); Hemoglobin 12.5 g/dL (12.0-16.0); Mean Corpuscular HGB CONC 31.8 g/dL (32.0-36.0); Mean Corpuscular Hemoglobin 30.9 pg (27.0-31.0); Mean Corpuscular Volume 97.2 fL (78.0-98.0); Mean Platelet Volume 6.9 fL (7.4-10.4); Platelet Count 225 thou/uL (130-400); RBC Distribution Width 17.1 % (11.5-14.5); Red Blood Cell (RBC) Count 4.04 mill/uL (4.20-5.40)
[2018-08-18 07:20] LABS: ALT (SGPT) 8 U/L (8-55); AST (SGOT) 23 U/L (5-34); Albumin 2.8 g/dL (3.4-4.8); Alkaline Phosphatase 107 U/L (40-150); Anion Gap 14 mmol/L (10-20); BUN (Urea Nitrogen) 18 mg/dL (9.8-20.1); Bilirubin, Total 2.9 mg/dL (0.2-1.2); Calc. Creatinine Clearance 79 mL/min (70-130); Calcium 8.7 mg/dL (7.8-10.44); Carbon Dioxide 24 mmol/L (23-31); Chloride 98 mmol/L (98-107); Estimated GFR-MDRD 61; Globulin 3.7 g/dL (2.4-3.5); Glucose 78 mg/dL (83-110); Magnesium 1.6 mg/dL (1.6-2.6); Potassium 3.7 mmol/L (3.5-5.1); Protein, Total 6.5 g/dL (6.0-8.3); Sodium 132 mmol/L (136-145)
[2018-08-18] MEDS: Loratadine 10 MG TAB PO SCH (09:01)
[2018-08-18] MEDS: Saccharomyces boulardii 250 MG CAP PO SCH (09:01)
[2018-08-18] MEDS: Enoxaparin Sodium 40 MG/0.4 ML SYRINGE SC SCH (09:02)
[2018-08-18] MEDS: Ferrous Sulfate 325 MG TAB PO SCH (09:02)
[2018-08-18] MEDS: Famotidine 20 MG TAB PO SCH ×2 (09:02→20:36)
[2018-08-18] MEDS: Potassium Chloride 10 MEQ TAB PO SCH (09:02)
[2018-08-18] MEDS ORDERED: Magnesium Sulfate 2 GM in Sodium Chloride 0.9% 100 ML IVPB SCH (11:00)
[2018-08-18] MEDS: Cefepime 1 GM in Sodium Chloride 0.9% 100 ML IVPB SCH ×2 (11:06→23:34)
[2018-08-18] MEDS: Ezetimibe 10 MG TAB PO SCH (20:36)
[2018-08-18] MEDS: Aspirin 81 mg Enteric Coated Tablet PO SCH (20:36)
[2018-08-18] MEDS: Zolpidem Tartrate 5 MG TAB PO PRN (20:37)
--- NOTE | 2018-08-18 22:45 | PDOC.PN ---
- Subjective Encounter Start Date: 08/18/18 Encounter Start Time: 11:25 Patient seen and examined for Cellulitis. No fever/chills/N/V/D. No new complaints. No overnight events - Objective Resuscitation Status - Order Detail: 08/14/18 21:23 Resuscitation Status Routine Resuscitation Status: FULL: Full Resuscitation MAR Reviewed: Yes Vital Signs & Weight: Vital Signs (12 hours) Temp Pulse Resp BP BP Pulse Ox 08/18/18 20:00 97.8 F 83 18 145/76 H 96 08/18/18 17:20 68 18 132/78 97 08/18/18 11:17 97.5 F L 60 18 132/81 96 Weight Weight 213 lb 3.2 oz I&O: 08/17/18 08/18/18 08/19/18 06:59 06:59 06:59 Intake Total 900 1200 940 Output Total 400 800 Balance 500 400 940 Result Diagrams: 08/18/18 06:35 08/18/18 06:35 Additional Labs: Microbiology 08/14/18 17:38 Urine voided Urine Culture - Final 08/15/18 11:54 Leg Bacterial Culture - Preliminary Presumptive Pseudomonas 08/14/18 17:30 Venous blood - Right Arm Blood Culture - Preliminary NO GROWTH AT 48 HOURS 08/14/18 17:25 Venous blood - Right Hand Blood Culture - Preliminary NO GROWTH AT 48 HOURS Phys Exam - Physical Examination Constitutional: NAD Respiratory: no wheezing, no rhonchi Cardiovascular: RRR, no rub Gastrointestinal: soft, non-tender, positive bowel sounds Musculoskeletal: no edema Dx/Plan - Plan DVT proph w/SCDs IMPRESSION: 1. Left lower extremity cellulitis. 2. Chronic venous stasis. 3. Coronary artery disease. 4. Recent hospitalization for left lower extremity cellulitis. 5. Hypertension. 6. Paroxysmal atrial fibrillation. 7. Moderate obesity with a BMI of 40.4. 8. Gastroesophageal reflux disease. 9. Hypothyroidism. 10. Chronically elevated LFTs of unclear etiology. 11. Hyponatremia. PLAN: Change Atbx to Cefepime due to Psedomonas from wound culture DC Lovenox per patient request Cont other meds as below DC in 1-2 days after culture/sens results Review of Systems - Review of Systems Respiratory: negative: Cough, Dry, Shortness of Breath, Hemoptysis, SOB with Excertion, Pleuritic Pain, Sputum, Wheezing Cardiovascular: negative: chest pain, palpitations, orthopnea, paroxysmal nocturnal dyspnea, edema, light headedness, other - Medications/Allergies Allergies/Adverse Reactions: Allergies Allergy/AdvReac Type Severity Reaction Status Date / Time adhesive tape Allergy Verified 09/09/16 12:17 amlodipine Allergy Verified 07/03/18 23:55 atorvastatin [From Lipitor] Allergy Verified 07/03/18 23:55 ciprofloxacin [From Cipro] Allergy Verified 07/03/18 23:55 digoxin Allergy Verified 09/09/16 12:17 dronedarone [From Multaq] Allergy Verified 07/03/18 23:55 hydrochlorothiazide Allergy Verified 07/03/18 23:55 Latex, Natural Rubber Allergy Verified 09/09/16 12:17 Medications: Current Medications Acetaminophen (Tylenol) 650 mg PO Q4H PRN PRN Reason: Headache/Fever/Mild Pain (1-3) Last Admin: 08/18/18 20:37 Dose: 650 mg Al Hydroxide/Mg Hydroxide (Maalox) 30 ml PO Q6H PRN PRN Reason: Heartburn or Indigestion Last Admin: 08/15/18 17:42 Dose: 30 ml Aspirin (Ecotrin) 81 mg PO [facility] Last Admin: 08/18/18 20:36 Dose: 81 mg Cyanocobalamin (Vitamin B-12) 1,000 mcg IM Q28D [facility] Last Admin: 08/16/18 08:47 Dose: 1,000 mcg Ezetimibe (Zetia) 10 mg PO HS [facility] Last Admin: 08/18/18 20:36 Dose: 10 mg Famotidine (Pepcid) 20 mg PO BID [facility] Last Admin: 08/18/18 20:36 Dose: 20 mg Ferrous Sulfate (Feosol) 325 mg PO DAILY [facility] Last Admin: 08/18/18 09:02 Dose: 325 mg Furosemide (Lasix) 20 mg PO 0600,1400 [facility] Last Admin: 08/18/18 14:37 Dose: 20 mg Cefepime HCl 1 gm/ Sodium (Chloride) 100 mls @ 200 mls/hr IVPB 1100,2300 [facility] Last Admin: 08/18/18 11:06 Dose: 100 mls Levothyroxine Sodium (Synthroid) 100 mcg PO 0600 [facility] Last Admin: 08/18/18 05:29 Dose: 100 mcg Loratadine (Claritin) 10 mg PO DAILY [facility] Last Admin: 08/18/18 09:01 Dose: 10 mg Metoprolol Succinate (Toprol Xl) 100 mg PO HS [facility] Last Admin: 08/18/18 20:36 Dose: 100 mg Miscellaneous Medication (Pharmacy To Dose) 1 each IVPB ASDIR PRN PRN Reason: Pharmacy to Dose 1 EACH Ondansetron HCl (Zofran Odt) 4 mg PO Q6H PRN PRN Reason: Nausea/Vomiting Ondansetron HCl (Zofran) 4 mg IVP Q6H PRN PRN Reason: Nausea/Vomiting Polyethylene Glycol (Miralax) 17 gm PO DAILY PRN PRN Reason: Constipation Last Admin: 08/18/18 17:16 Dose: 17 gm Potassium Chloride (Klor-Con 10) 10 meq PO DAILY [facility] Last Admin: 08/18/18 09:02 Dose: 10 meq Saccharomyces Boulardii (Florastor) 250 mg PO DAILY [facility] Last Admin: 08/18/18 09:01 Dose: 250 mg Sodium Chloride (Flush - Normal Saline) 10 ml IVF PRN PRN PRN Reason: Saline Flush Zolpidem Tartrate (Ambien) 5 mg PO HS PRN PRN Reason: Insomnia Last Admin: 08/18/18 20:37 Dose: 5 mg
[2018-08-19] MEDS: Levothyroxine Sodium 100 MCG TAB PO SCH (05:26)
[2018-08-19] MEDS: Furosemide 20 MG TAB PO SCH ×2 (05:26→14:14)
[2018-08-19] MEDS: Ferrous Sulfate 325 MG TAB PO SCH (09:33)
[2018-08-19] MEDS: Famotidine 20 MG TAB PO SCH ×2 (09:34→21:22)
[2018-08-19] MEDS: Loratadine 10 MG TAB PO SCH (09:34)
[2018-08-19] MEDS: Saccharomyces boulardii 250 MG CAP PO SCH (09:34)
[2018-08-19] MEDS: Potassium Chloride 10 MEQ TAB PO SCH (09:34)
[2018-08-19] MEDS: Cefepime 1 GM in Sodium Chloride 0.9% 100 ML IVPB SCH ×2 (11:55→22:59)
[2018-08-19] MEDS: Ezetimibe 10 MG TAB PO SCH (21:21)
[2018-08-19] MEDS: Aspirin 81 mg Enteric Coated Tablet PO SCH (21:22)
--- NOTE | 2018-08-19 22:19 | PDOC.PN ---
- Subjective Encounter Start Date: 08/19/18 Encounter Start Time: 11:00 Patient seen and examined for Cellulitis. No new complaints. No overnight events - Objective Resuscitation Status - Order Detail: 08/14/18 21:23 Resuscitation Status Routine Resuscitation Status: FULL: Full Resuscitation MAR Reviewed: Yes Vital Signs & Weight: Vital Signs (12 hours) Temp Pulse Resp BP Pulse Ox 08/19/18 20:00 98.1 F 86 18 119/72 93 L 08/19/18 17:32 97.6 F 86 18 131/73 96 08/19/18 12:15 97.2 F L 85 16 122/76 97 Weight Weight 212 lb 14.4 oz I&O: 08/18/18 08/19/18 08/20/18 06:59 06:59 06:59 Intake Total 1200 1170 1080 Output Total 800 Balance 400 1170 1080 Result Diagrams: 08/20/18 09:08 08/20/18 09:08 Phys Exam - Physical Examination Constitutional: NAD Respiratory: no wheezing, no rhonchi Cardiovascular: RRR, no rub Gastrointestinal: soft, non-tender, positive bowel sounds Musculoskeletal: edema present LLE dressing+ Dx/Plan - Plan DVT proph w/SCDs IMPRESSION: 1. Left lower extremity cellulitis. improving. Wound culture- Pseudomonas 2. Chronic venous stasis. 3. Coronary artery disease. 4. Recent hospitalization for left lower extremity cellulitis. 5. Hypertension. 6. Paroxysmal atrial fibrillation. 7. Moderate obesity with a BMI of 40.4. 8. Gastroesophageal reflux disease. 9. Hypothyroidism. 10. Chronically elevated LFTs of unclear etiology. 11. Hyponatremia. PLAN: Cont Cefepime due to Pseudomonas from wound culture Patient refusing Lovenox due to easy brusing Cont other meds as below Will d/w Dr Colunga regarding PO Atbx - Patient allergic to Quinolone Review of Systems - Review of Systems Respiratory: negative: Cough, Dry, Shortness of Breath, Hemoptysis, SOB with Excertion, Pleuritic Pain, Sputum, Wheezing Cardiovascular: negative: chest pain, palpitations, orthopnea, paroxysmal nocturnal dyspnea, edema, light headedness, other - Medications/Allergies Allergies/Adverse Reactions: Allergies Allergy/AdvReac Type Severity Reaction Status Date / Time adhesive tape Allergy Verified 09/09/16 12:17 amlodipine Allergy Verified 07/03/18 23:55 atorvastatin [From Lipitor] Allergy Verified 07/03/18 23:55 ciprofloxacin [From Cipro] Allergy Verified 07/03/18 23:55 digoxin Allergy Verified 09/09/16 12:17 dronedarone [From Multaq] Allergy Verified 07/03/18 23:55 hydrochlorothiazide Allergy Verified 07/03/18 23:55 Latex, Natural Rubber Allergy Verified 09/09/16 12:17 Medications: Current Medications Acetaminophen (Tylenol) 650 mg PO Q4H PRN PRN Reason: Headache/Fever/Mild Pain (1-3) Last Admin: 08/18/18 20:37 Dose: 650 mg Al Hydroxide/Mg Hydroxide (Maalox) 30 ml PO Q6H PRN PRN Reason: Heartburn or Indigestion Last Admin: 08/15/18 17:42 Dose: 30 ml Aspirin (Ecotrin) 81 mg PO [facility] Last Admin: 08/19/18 21:22 Dose: 81 mg Cyanocobalamin (Vitamin B-12) 1,000 mcg IM Q28D [facility] Last Admin: 08/16/18 08:47 Dose: 1,000 mcg Ezetimibe (Zetia) 10 mg PO [facility] Last Admin: 08/19/18 21:21 Dose: 10 mg Famotidine (Pepcid) 20 mg PO BID [facility] Last Admin: 08/19/18 21:22 Dose: 20 mg Ferrous Sulfate (Feosol) 325 mg PO DAILY [facility] Last Admin: 08/19/18 09:33 Dose: 325 mg Furosemide (Lasix) 20 mg PO 0600,1400 [facility] Last Admin: 08/19/18 14:14 Dose: 20 mg Cefepime HCl 1 gm/ Sodium (Chloride) 100 mls @ 200 mls/hr IVPB 1100,2300 [facility] Last Admin: 08/19/18 11:55 Dose: 100 mls Levothyroxine Sodium (Synthroid) 100 mcg PO 0600 [facility] Last Admin: 08/19/18 05:26 Dose: 100 mcg Loratadine (Claritin) 10 mg PO DAILY [facility] Last Admin: 08/19/18 09:34 Dose: 10 mg Metoprolol Succinate (Toprol Xl) 100 mg PO [facility] Last Admin: 08/19/18 21:24 Dose: 100 mg Ondansetron HCl (Zofran Odt) 4 mg PO Q6H PRN PRN Reason: Nausea/Vomiting Ondansetron HCl (Zofran) 4 mg IVP Q6H PRN PRN Reason: Nausea/Vomiting Polyethylene Glycol (Miralax) 17 gm PO DAILY PRN PRN Reason: Constipation Last Admin: 08/18/18 17:16 Dose: 17 gm Potassium Chloride (Klor-Con 10) 10 meq PO DAILY [facility] Last Admin: 08/19/18 09:34 Dose: 10 meq Saccharomyces Boulardii (Florastor) 250 mg PO DAILY [facility] Last Admin: 08/19/18 09:34 Dose: 250 mg Sodium Chloride (Flush - Normal Saline) 10 ml IVF PRN PRN PRN Reason: Saline Flush Zolpidem Tartrate (Ambien) 5 mg PO HS PRN PRN Reason: Insomnia Last Admin: 08/18/18 20:37 Dose: 5 mg
[2018-08-19] MEDS: Acetaminophen 325 MG TAB PO PRN (23:00)
[2018-08-20] MEDS: Levothyroxine Sodium 100 MCG TAB PO SCH (06:06)
[2018-08-20] MEDS: Furosemide 20 MG TAB PO SCH ×2 (06:06→14:45)
[2018-08-20] MEDS: Ferrous Sulfate 325 MG TAB PO SCH (07:37)
[2018-08-20] MEDS: Famotidine 20 MG TAB PO SCH ×2 (07:37→20:08)
[2018-08-20] MEDS: Saccharomyces boulardii 250 MG CAP PO SCH (07:37)
[2018-08-20] MEDS: Loratadine 10 MG TAB PO SCH (07:37)
[2018-08-20] MEDS: Potassium Chloride 10 MEQ TAB PO SCH (07:37)
[2018-08-20 09:19] LABS: #Lymphocytes 1.3 thou/uL (1.20-3.40); #Monocytes 0.6 thou/uL (0.11-0.59); #Neutrophils 3.1 thou/uL (1.40-6.50); %Basophils 0.3 % (0.0-1.0); %Eosinophils 0.3 % (0.0-10.0); %Lymphocytes 26.2 % (21.0-51.0); %Neutrophils 62.2 % (42.0-75.0); Hemoglobin 13.3 g/dL (12.0-16.0); Mean Corpuscular HGB CONC 30.7 g/dL (32.0-36.0); Mean Corpuscular Hemoglobin 29.4 pg (27.0-31.0); Mean Platelet Volume 6.3 fL (7.4-10.4); Platelet Count 312 thou/uL (130-400); RBC Distribution Width 17.6 % (11.5-14.5); Red Blood Cell (RBC) Count 4.52 mill/uL (4.20-5.40); White Blood Cell (WBC) Count 5.1 thou/uL (4.8-10.8)
[2018-08-20 09:42] LABS: ALT (SGPT) 10 U/L (8-55); AST (SGOT) 23 U/L (5-34); Albumin 3.3 g/dL (3.4-4.8); Alkaline Phosphatase 120 U/L (40-150); Anion Gap 14 mmol/L (10-20); BUN (Urea Nitrogen) 15 mg/dL (9.8-20.1); Bilirubin, Total 3.8 mg/dL (0.2-1.2); Calc. Creatinine Clearance 81 mL/min (70-130); Calcium 9.1 mg/dL (7.8-10.44); Carbon Dioxide 29 mmol/L (23-31); Chloride 97 mmol/L (98-107); Estimated GFR-MDRD 63; Globulin 4.1 g/dL (2.4-3.5); Glucose 111 mg/dL (83-110); Potassium 3.9 mmol/L (3.5-5.1); Protein, Total 7.4 g/dL (6.0-8.3); Sodium 136 mmol/L (136-145)
[2018-08-20] MEDS: Cefepime 1 GM in Sodium Chloride 0.9% 100 ML IVPB SCH (11:09)
[2018-08-20] MEDS ORDERED: CIPROFLOXACIN 250 MG/5 ML PO SCH (13:00)
[2018-08-20] MEDS: Aspirin 81 mg Enteric Coated Tablet PO SCH (20:07)
[2018-08-20] MEDS: Acetaminophen 325 MG TAB PO PRN (20:08)
[2018-08-20] MEDS: Ezetimibe 10 MG TAB PO SCH (20:08)
[2018-08-20] MEDS: Zolpidem Tartrate 5 MG TAB PO PRN (20:09)
--- NOTE | 2018-08-20 23:24 | PDOC.PN ---
- Subjective Encounter Start Date: 08/20/18 Encounter Start Time: 14:00 Patient seen and examined for Cellulitis. Still has erythema in LLE. No new complaints. No overnight events - Objective Resuscitation Status - Order Detail: 08/14/18 21:23 Resuscitation Status Routine Resuscitation Status: FULL: Full Resuscitation MAR Reviewed: Yes Vital Signs & Weight: Vital Signs (12 hours) Temp Pulse Resp BP BP Pulse Ox 08/20/18 20:00 97.7 F 89 18 95/57 L 94 L 08/20/18 12:00 97.4 F L 89 16 107/66 95 Weight Weight 212 lb 14.4 oz I&O: 08/19/18 08/20/18 08/21/18 06:59 06:59 06:59 Intake Total 1170 1580 800 Balance 1170 1580 800 Result Diagrams: 08/20/18 09:08 08/20/18 09:08 Phys Exam - Physical Examination Constitutional: NAD Respiratory: no wheezing, no rhonchi Cardiovascular: RRR, no rub Gastrointestinal: soft, non-tender, positive bowel sounds Musculoskeletal: edema present LLE erythema Neurological: moves all 4 limbs Dx/Plan - Plan DVT proph w/SCDs IMPRESSION: 1. Left lower extremity cellulitis. improving. Wound culture- Pseudomonas 2. Chronic venous stasis. 3. Coronary artery disease. 4. Recent hospitalization for left lower extremity cellulitis. 5. Hypertension. 6. Paroxysmal atrial fibrillation. 7. Moderate obesity with a BMI of 40.4. 8. Gastroesophageal reflux disease. 9. Hypothyroidism. 10. Chronically elevated LFTs of unclear etiology - worsening 11. Hyponatremia. PLAN: Cont Cefepime Ciprofloxacin trial RUQ ultrasound due to worsening LFTs Patient refusing Lovenox due to easy brusing Cont other meds as below Plan d/w Dr Colunga Review of Systems - Review of Systems Respiratory: negative: Cough, Dry, Shortness of Breath, Hemoptysis, SOB with Excertion, Pleuritic Pain, Sputum, Wheezing Cardiovascular: negative: chest pain, palpitations, orthopnea, paroxysmal nocturnal dyspnea, edema, light headedness, other Gastrointestinal: negative: Nausea, Vomiting, Abdominal Pain, Diarrhea, Constipation, Melena, Hematochezia, Other - Medications/Allergies Allergies/Adverse Reactions: Allergies Allergy/AdvReac Type Severity Reaction Status Date / Time adhesive tape Allergy Verified 09/09/16 12:17 amlodipine Allergy Verified 07/03/18 23:55 atorvastatin [From Lipitor] Allergy Verified 07/03/18 23:55 ciprofloxacin [From Cipro] Allergy Verified 07/03/18 23:55 digoxin Allergy Verified 09/09/16 12:17 dronedarone [From Multaq] Allergy Verified 07/03/18 23:55 hydrochlorothiazide Allergy Verified 07/03/18 23:55 Latex, Natural Rubber Allergy Verified 09/09/16 12:17 Medications: Current Medications Acetaminophen (Tylenol) 650 mg PO Q4H PRN PRN Reason: Headache/Fever/Mild Pain (1-3) Last Admin: 08/20/18 20:08 Dose: 650 mg Al Hydroxide/Mg Hydroxide (Maalox) 30 ml PO Q6H PRN PRN Reason: Heartburn or Indigestion Last Admin: 08/15/18 17:42 Dose: 30 ml Aspirin (Ecotrin) 81 mg PO [facility] Last Admin: 08/20/18 20:07 Dose: 81 mg Ciprofloxacin (Cipro) 250 mg PO BID@0600,2000 [facility] Cyanocobalamin (Vitamin B-12) 1,000 mcg IM Q28D [facility] Last Admin: 08/16/18 08:47 Dose: 1,000 mcg Ezetimibe (Zetia) 10 mg PO [facility] Last Admin: 08/20/18 20:08 Dose: 10 mg Famotidine (Pepcid) 20 mg PO BID [facility] Last Admin: 08/20/18 20:08 Dose: 20 mg Ferrous Sulfate (Feosol) 325 mg PO DAILY [facility] Last Admin: 08/20/18 07:37 Dose: 325 mg Furosemide (Lasix) 20 mg PO 0600,1400 [facility] Last Admin: 08/20/18 14:45 Dose: 20 mg Cefepime HCl 1 gm/ Sodium (Chloride) 100 mls @ 200 mls/hr IVPB 1100,2300 [facility] Last Admin: 08/20/18 11:09 Dose: 100 mls Levothyroxine Sodium (Synthroid) 100 mcg PO 0600 [facility] Last Admin: 08/20/18 06:06 Dose: 100 mcg Loratadine (Claritin) 10 mg PO DAILY [facility] Last Admin: 08/20/18 07:37 Dose: 10 mg Metoprolol Succinate (Toprol Xl) 100 mg PO [facility] Last Admin: 08/20/18 20:08 Dose: 100 mg Ondansetron HCl (Zofran Odt) 4 mg PO Q6H PRN PRN Reason: Nausea/Vomiting Ondansetron HCl (Zofran) 4 mg IVP Q6H PRN PRN Reason: Nausea/Vomiting Polyethylene Glycol (Miralax) 17 gm PO DAILY PRN PRN Reason: Constipation Last Admin: 08/18/18 17:16 Dose: 17 gm Potassium Chloride (Klor-Con 10) 10 meq PO DAILY [facility] Last Admin: 08/20/18 07:37 Dose: 10 meq Saccharomyces Boulardii (Florastor) 250 mg PO DAILY [facility] Last Admin: 08/20/18 07:37 Dose: 250 mg Sodium Chloride (Flush - Normal Saline) 10 ml IVF PRN PRN PRN Reason: Saline Flush Zolpidem Tartrate (Ambien) 5 mg PO HS PRN PRN Reason: Insomnia Last Admin: 08/20/18 20:09 Dose: 5 mg
[2018-08-21] MEDS: Cefepime 1 GM in Sodium Chloride 0.9% 100 ML IVPB SCH ×2 (00:57→11:17)
[2018-08-21] MEDS ORDERED: Cipro 250 MG TAB PO SCH (06:00)
[2018-08-21] MEDS: Levothyroxine Sodium 100 MCG TAB PO SCH (06:23)
[2018-08-21] MEDS: Furosemide 20 MG TAB PO SCH (06:24)
[2018-08-21] MEDS: Acetaminophen 325 MG TAB PO PRN (06:24)
[2018-08-21 07:18] LABS: #Lymphocytes 1.3 thou/uL (1.20-3.40); #Monocytes 0.5 thou/uL (0.11-0.59); #Neutrophils 1.9 thou/uL (1.40-6.50); %Basophils 1.1 % (0.0-1.0); %Eosinophils 0.3 % (0.0-10.0); %Lymphocytes 34.7 % (21.0-51.0); %Monocytes 13.4 % (0.0-10.0); %Neutrophils 50.6 % (42.0-75.0); Hemoglobin 12.7 g/dL (12.0-16.0); Mean Corpuscular HGB CONC 31.1 g/dL (32.0-36.0); Mean Corpuscular Hemoglobin 29.9 pg (27.0-31.0); Mean Corpuscular Volume 96.1 fL (78.0-98.0); Mean Platelet Volume 6.5 fL (7.4-10.4); Platelet Count 284 thou/uL (130-400); RBC Distribution Width 17.6 % (11.5-14.5); Red Blood Cell (RBC) Count 4.26 mill/uL (4.20-5.40); White Blood Cell (WBC) Count 3.7 thou/uL (4.8-10.8)
[2018-08-21 07:40] LABS: ALT (SGPT) Less than 7 U/L (8-55); AST (SGOT) 20 U/L (5-34); Albumin 2.9 g/dL (3.4-4.8); Alkaline Phosphatase 101 U/L (40-150); Anion Gap 13 mmol/L (10-20); BUN (Urea Nitrogen) 17 mg/dL (9.8-20.1); Bilirubin, Total 3.5 mg/dL (0.2-1.2); Calc. Creatinine Clearance 86 mL/min (70-130); Calcium 8.7 mg/dL (7.8-10.44); Carbon Dioxide 30 mmol/L (23-31); Chloride 98 mmol/L (98-107); Estimated GFR-MDRD 67; Globulin 3.6 g/dL (2.4-3.5); Glucose 74 mg/dL (83-110); Lipase 81 U/L (8-78); Potassium 3.5 mmol/L (3.5-5.1); Protein, Total 6.5 g/dL (6.0-8.3); Sodium 137 mmol/L (136-145)
--- NOTE | 2018-08-21 07:42 | ULT ---
RIGHT UPPER QUADARNT ULTRASOUND: INDICATION: Abnormal LFTs. COMPARISON: None. FINDINGS: No focal hepatic lesion is evident. Visualized aspects of the pancreas are unremarkable. There are multiple layering gallstones within the gallbladder. No sonographic Guzman's sign was repo rted. Common bile duct measures 7 mm which is within normal limits for age. The right kidney measures 9.7 x 5 x 4.5 cm. Small hypoechoic areas are seen within the cortex of the kidney which may reflect small mildly complex cysts. The largest is seen measuring 1.5 cm within th e right mid kidney. Incidental note of made of a right-sided pleural effusion. There is slight prominence of the IVC whi ch may reflect some right heart dysfunction. IMPRESSION: 1. Cholelithiasis without sonographic evidence of acute cholecystitis. 2. Right-sided pleural effusion. 3. Prominence of inferior vena cava may reflect right-sided heart dysfunction. 4. Small hypoechoic regions seen within the renal cortex, the largest seen measuring 1.5 cm within t he right mid kidney suspicious for a small cyst. POS: BH
[2018-08-21 07:56] VITALS: TEMP 97.4
[2018-08-21] MEDS: Saccharomyces boulardii 250 MG CAP PO SCH (08:50)
[2018-08-21] MEDS: Famotidine 20 MG TAB PO SCH (08:50)
[2018-08-21] MEDS: Loratadine 10 MG TAB PO SCH (08:50)
[2018-08-21] MEDS: Ferrous Sulfate 325 MG TAB PO SCH (08:50)
[2018-08-21] MEDS: Potassium Chloride 10 MEQ TAB PO SCH (08:50)
[2018-08-21 11:33] VITALS: BMI 40.2
--- NOTE | 2018-08-21 11:48 | DIS ---
DATE OF ADMISSION: 08/15/2018 DATE OF DISCHARGE: 08/21/2018 DISCHARGE DISPOSITION: Home with Home Health Care. FOLLOWUP: 1. Follow up with primary care physician, Dr. Nelly Sood in 1 week. 2. Follow up with Infectious Disease, Dr. Colunga in 2 to 3 weeks. DISCHARGE MEDICATIONS: 1. Keflex 500 mg three times daily for 10 days. 2. Ciprofloxacin 250 mg twice a day for 1 week. All other home medications were left unchanged. SIGNIFICANT LABS: Total bilirubin at discharge is 3.5, on admission was 4.9. Wound culture showed Pseudomonas sensitive to ciprofloxacin. Blood cultures were negative. Sodium on admission was 132, at discharge 137. WBC on the day of discharge is 3.7 with 50.6% neutrophil. BRIEF HOSPITAL COURSE: The patient is a 78-year-old female with chronic diastolic heart failure with recent left lower extremity cellulitis, presented to the hospital with increasing erythema and swelling of the left lower extremity. She was discharged from this facility on 11 July 2018 on oral Keflex for 10 days. Left lower extremity cellulitis had resolved. Please refer to the history and physical for further details. The patient was admitted to the hospital with a diagnosis of left lower extremity cellulitis. Venous Doppler was negative for DVT. She was started on broad-spectrum antibiotics. Wound culture showed Pseudomonas. Dr. Colunga thinks that Pseudomonas is probably a skin contaminant. She received wound care on the daily basis during the hospital stay. Left lower extremity cellulitis has significantly improved. Home health care will be resumed for wound care. She will be discharged home on Keflex along with ciprofloxacin. The patient was found to have elevated total bilirubin of 4.9 on admission. It improved to 3.5 at discharge. Right upper quadrant ultrasound showed prominence of inferior vena cava that may reflect right-sided heart dysfunction. There was cholelithiasis without any acute cholecystitis. Abnormal LFTs are probably secondary to passive hepatic congestion. She was advised to continue Lasix along with fluid restriction. She is currently saturating 94% on room air. FINAL DIAGNOSES: 1. Left lower extremity cellulitis, improving. 2. Chronic diastolic heart failure, compensated. 3. Chronically elevated LFTs, probably secondary to passive hepatic congestion from chronic diastolic heart failure. 4. Moderate obesity with BMI of 40.4. 5. Hypertension. 6. Coronary artery disease. 7. Hyponatremia, improved. 8. Cholelithiasis. 9. Right-sided pleural effusion, probably secondary to chronic diastolic heart failure. 10. Paroxysmal atrial fibrillation. 11. Gastroesophageal reflux disease. The patient is not a candidate for full anticoagulation due to advanced age and per the patient's request. PLAN: Plan was discussed with the patient in detail. She stated understanding. Job ID: [id number]
[2018-08-21 13:09] VITALS: BP 106/64
== END 2018-08-21 13:18 | disposition home health service (06) | DRG 603 ==
LOC: ERS 12:50 → T4-B 19:37 → OBSVTOIN 08-15 17:51
PROVIDERS: ADMIT Emergency Medicine; ATTEND Emergency Medicine
DX: L03.116 Cellulitis of left lower limb (principal); Z68.41 Body mass index [BMI] 40.0-44.9, adult; E87.1 Hypo-osmolality and hyponatremia; I50.32 Chronic diastolic (congestive) heart failure; I11.0 Hypertensive heart disease with heart failure; I48.0 Paroxysmal atrial fibrillation; I87.2 Venous insufficiency (chronic) (peripheral); E66.01 Morbid (severe) obesity due to excess calories; K76.1 Chronic passive congestion of liver; I25.10 Atherosclerotic heart disease of native coronary artery without angina pectoris; E03.9 Hypothyroidism, unspecified; K21.9 Gastro-esophageal reflux disease without esophagitis; R58 Hemorrhage, not elsewhere classified; K80.20 Calculus of gallbladder without cholecystitis without obstruction; Z87.891 Personal history of nicotine dependence; Z88.2 Allergy status to sulfonamides; Z88.1 Allergy status to other antibiotic agents; Z91.040 Latex allergy status; Z88.8 Allergy status to other drugs, medicaments and biological substances; Z79.82 Long term (current) use of aspirin; Z79.899 Other long term (current) drug therapy; Z96.651 Presence of right artificial knee joint
CPT/HCPCS: 36415; 76705; 80048; 80053; 80202; 81003; 81015; 82248; 83605; 83690; 83735; 85025; 85379; 87040; 87070; 87077; 87086; 87186; 87205; 96365; 96367; J0692; J0696; J1650; J3370; J3420; J3475; J7050

== ENCOUNTER 2018-09-19 10:00 | Outpatient (CLI) | payer MEDICARE ==
--- NOTE | 2018-09-19 17:41 | PRG ---
DATE OF SERVICE: 09/19/2018 HISTORY: Ms. Rosaura Escobar is a very pleasant 78-year-old, who presents to the [facility] for evaluation of an ulceration of the left anterior lower leg. The patient states that since her visit to the Wound Center on 11/23/2017, she was admitted to [facility] with cellulitis of the left lower extremity. The patient had failed outpatient therapy. Ms. Escobar was discharged to home on Keflex 500 mg p.o. t.i.d. The patient, however, required readmission to [facility] on 08/14/2018 for left lower extremity cellulitis. Ms. Escobar was discharged to home again on Keflex 500 mg p.o. t.i.d. for 10 days in addition to ciprofloxacin 250 mg p.o. b.i.d. x7 days. During the patient's hospital stay, Ms. Escobar was seen in consultation by Dr. Reji Colunga of Infectious Diseases. The patient states that she has been seen by Dr. Colunga since her discharge from the hospital on 08/21/2018. She states that at the time of her visit with Dr. Colunga, she was placed on Levaquin 750 mg one p.o. daily. Ms. Escobar states she has another followup appointment with Dr. Colunga later today. The patient states that the ulceration of her left anterior lower leg developed during her most recent hospital stay after a superficial abscess ruptured. PHYSICAL EXAMINATION: VITAL SIGNS: Temperature 97.6, pulse 69, respirations 20, and blood pressure 127/73. EXTREMITIES: The ulceration of the left anterior lower leg measures approximately 1.7 x 1.8 cm. No purulent drainage is associated with the wound. Erythema of the left lower leg is present. No maceration of the skin of the periwound is noted. A dorsalis pedis pulse is palpable on the left. Edema of the left lower leg is present on today's exam. ASSESSMENT AND PLAN: 1. Ulceration of left anterior lower leg as described above. Dressing changes of Xeroform gauze, followed by an ABD, Kerlix, and an Rob bandage will be initiated today. These dressing changes are to be performed 3 times per week after cleansing and irrigation with the assistance of Home Health. As stated above, the patient has a followup appointment with Dr. Reji Colunga of Infectious Diseases later today. I will see Ms. Escobar again in 1 week. 2. Osteoarthritis. 3. Hypertension. 4. Atrial fibrillation/atrial flutter. 5. Hypothyroidism. 6. Gastroesophageal reflux disease. 7. Mitral regurgitation. Job ID: [id number]
[2018-09-19] MEDS ORDERED: Sodium Chloride 0.9% 15 ML NEB ONE (18:00)
== END 2018-09-19 10:01 | disposition home or self-care (01) ==
LOC: WCC 10:00
PROVIDERS: ATTEND Family Medicine
DX: L97.929 Non-pressure chronic ulcer of unspecified part of left lower leg with unspecified severity (principal); M19.90 Unspecified osteoarthritis, unspecified site; I10 Essential (primary) hypertension; E03.9 Hypothyroidism, unspecified; K21.9 Gastro-esophageal reflux disease without esophagitis; I34.0 Nonrheumatic mitral (valve) insufficiency
CPT/HCPCS: A4218

== ENCOUNTER 2018-10-01 08:06 | Outpatient (CLI) | payer MEDICARE ==
--- NOTE | 2018-10-01 10:04 | PRG ---
DATE OF SERVICE: 10/01/2018 HISTORY: Ms. Rosaura Escobar is a very pleasant 78-year-old, who presents to the [facility]ound Center for evaluation of an ulceration of the left anterior lower leg. The patient previously stated that the ulceration of her left anterior lower leg developed during her most recent hospital stay after a superficial abscess ruptured. The patient is presently receiving assistance with dressing changes by Home Health. Presently, the patient is receiving dressing changes of Xeroform gauze, followed by an ABD, Kerlix, and an Rob bandage 3 times per week after cleansing and irrigation. The patient states that she was recently seen by Dr. Reji Colunga of Infectious Diseases and placed on penicillin, which she will be taking for the next year. Ms. Escobar is also in the process of acquiring a pneumatic pump for treatment of right and left lower extremity lymphedema. PHYSICAL EXAMINATION: VITAL SIGNS: Temperature 97.7, pulse 71, respirations 18, blood pressure 117/64. EXTREMITIES: The ulceration of the left anterior lower leg measures approximately 1.5 x 1.3 cm. The dimensions of the wound at the time of the patient's visit on 09/19/2018, were approximately 1.7 x 1.8 cm. Granulation tissue is visible within the wound margins. No purulent drainage is associated with the wound. Serous drainage is noted on today's exam. Less erythema of the left lower leg is present than at the time of the patient's last visit. No maceration of the skin of the periwound is noted. Edema of the left lower leg is present on exam today. Circumferences of the left lower extremity at the foot, ankle, calf, and knee are 20.5 cm, 22 cm, 43 cm, and 54 cm. ASSESSMENT AND PLAN: 1. Ulceration of left anterior lower leg as described above. Dressing changes of Xeroform gauze, followed by an ABD, Kerlix, and an Rob bandage will be continued 3 times per week after cleansing and irrigation with the assistance of Home Health. Comperm may be utilized in lieu of an Rob bandage at the time of dressing changes. I will see Ms. Escobar again on 10/18/2018. As stated above, the patient is in the process of acquiring a pneumatic pump for in-home lymphedema therapy. 2. Osteoarthritis. 3. Hypertension. 4. Atrial fibrillation/atrial flutter. 5. Hypothyroidism. 6. Gastroesophageal reflux disease. 7. Mitral regurgitation. Job ID: [id number]
[2018-10-01] MEDS ORDERED: Sodium Chloride 0.9% 15 ML NEB ONE (17:40)
== END 2018-10-01 08:07 | disposition home or self-care (01) ==
LOC: WCC 08:06
PROVIDERS: ATTEND Family Medicine
DX: L97.929 Non-pressure chronic ulcer of unspecified part of left lower leg with unspecified severity (principal); M19.90 Unspecified osteoarthritis, unspecified site; I10 Essential (primary) hypertension; I48.91 Unspecified atrial fibrillation; E03.9 Hypothyroidism, unspecified; K21.9 Gastro-esophageal reflux disease without esophagitis; I34.0 Nonrheumatic mitral (valve) insufficiency
CPT/HCPCS: 97602; A4218

== ENCOUNTER 2018-10-10 14:18 | Outpatient (CLI) | payer MEDICARE ==
--- NOTE | 2018-10-10 14:47 | RAD ---
PA AND LATERAL VIEWS CHEST: HISTORY: Dyspnea. FINDINGS/IMPRESSION: The heart is enlarged. There is pulmonary vascular congestion. There is a moderate-sized right pleu ral effusion. No pneumothoraces are seen. There is a displaced fracture involving the neck of the humerus. This fracture was not significantly displaced on the exam of 10/16/2017. POS: OFF
== END 2018-10-10 14:19 | disposition home or self-care (01) ==
LOC: BICRAD 14:18
PROVIDERS: ATTEND Internal Medicine Infectious Disease
DX: R06.00 Dyspnea, unspecified (principal); I51.7 Cardiomegaly; J90 Pleural effusion, not elsewhere classified; S42.209A Unspecified fracture of upper end of unspecified humerus, initial encounter for closed fracture
CPT/HCPCS: 71046

== ENCOUNTER 2018-10-12 15:09 | Inpatient (IN) | payer MEDICARE ==
[2018-10-12] MEDS ORDERED: Diltiazem HCl 125 MG, Admixture Fee 1 EACH in Sodium Chloride 0.9% 100 ML IVPB SCH (15:45)
[2018-10-12 15:51] LABS: #Basophils 0.1 thou/uL (0.0-0.2); #Lymphocytes 0.7 thou/uL (1.20-3.40); #Monocytes 0.6 thou/uL (0.11-0.59); #Neutrophils 4.3 thou/uL (1.40-6.50); %Basophils 1.1 % (0.0-1.0); %Eosinophils 0.2 % (0.0-10.0); %Lymphocytes 12.6 % (21.0-51.0); %Neutrophils 76.1 % (42.0-75.0); Hemoglobin 14.5 g/dL (12.0-16.0); Mean Corpuscular HGB CONC 31.3 g/dL (32.0-36.0); Mean Corpuscular Hemoglobin 29.6 pg (27.0-31.0); Mean Corpuscular Volume 94.6 fL (78.0-98.0); Mean Platelet Volume 7.7 fL (7.4-10.4); Platelet Count 198 thou/uL (130-400); Red Blood Cell (RBC) Count 4.91 mill/uL (4.20-5.40); White Blood Cell (WBC) Count 5.7 thou/uL (4.8-10.8)
[2018-10-12 16:15] LABS: ALT (SGPT) 13 U/L (8-55); AST (SGOT) 42 U/L (5-34); Albumin 3.7 g/dL (3.4-4.8); Alkaline Phosphatase 128 U/L (40-150); Anion Gap 15 mmol/L (10-20); BUN (Urea Nitrogen) 19 mg/dL (9.8-20.1); Bilirubin, Total 3.2 mg/dL (0.2-1.2); Calc. Creatinine Clearance 0 mL/min (70-130); Calcium 9.4 mg/dL (7.8-10.44); Carbon Dioxide 28 mmol/L (23-31); Chloride 93 mmol/L (98-107); Estimated GFR-MDRD 67; Globulin 4.3 g/dL (2.4-3.5); Glucose 103 mg/dL (83-110); Potassium 5.3 mmol/L (3.5-5.1); Sodium 131 mmol/L (136-145)
[2018-10-12] MEDS ORDERED: Furosemide 40 MG/4 ML VIAL ONE (16:32)
--- NOTE | 2018-10-12 16:33 | RAD ---
PORTABLE SUPINE CHEST: 10/12/18 HISTORY: Dyspnea. COMPARISON: 10/10/18. Moderate right pleural effusion again noted, not significantly changed from the prior study. There is cardiomegaly with mild vascular congestion, also similar in appearance. Deformity of the left radial head and neck with old ununited displaced fracture again noted. IMPRESSION: Right sided effusion, not significantly changed. Cardiomegaly and mild vascular congestion again note d. POS: [facility]
[2018-10-12] MEDS: Famotidine 20 MG TAB PO SCH (21:02)
[2018-10-12] MEDS ORDERED: Polyethylene Glycol 3350 17 GM Packet PO PRN (23:32)
[2018-10-12 23:54] LABS: Troponin I 0.013 ng/mL (< 0.028)
--- NOTE | 2018-10-13 03:15 | HP ---
PRIMARY CARE PROVIDER: Nelly Sood MD CHIEF COMPLAINT: Shortness of breath. HISTORY OF PRESENT ILLNESS: Ms. Escobar is a 78-year-old female who reported to the emergency room today for increasing shortness of breath over the last 2 days. The patient reports that she has a home health nurse who comes in 3 days a week to wound care on her left leg, has stasis ulcer/cellulitis. It has been present over the last year intermittently. The patient says that her nurse listened to her heart today and decided it was different from baseline. The patient does state she has a history of CHF. The patient reports that she has been on antibiotics, but was taken off 2 days ago. When patient was initially seen in the ER, her first EKG showed an atrial fibrillation rate with rapid ventricular response with a heart rate of 132, frequent premature ventricular complexes with aberrant conduction, incomplete right bundle branch block. Subsequently, a second EKG showed an undetermined rhythm, beats per minute 69, incomplete right bundle-branch block, low voltage QRS. Chest x-ray showed a right pleural effusion, also showed some cardiomegaly with some mild vascular congestion. The patient does report she takes Lasix 20 mg twice daily, but reports that really has not been helping to take the fluid off lately. Last echocardiogram done in June of 2018 showed an EF of 50% to 55%. Diastolic function could not be assessed secondary to atrial fibrillation, moderately enlarged right ventricle. Left atrium is [id number] dilated, moderate mitral regurgitation, severe tricuspid regurgitation. The patient was also admitted in July of 2018 for a wound culture, it was positive for Pseudomonas. She was seen by Dr. Colunga and was discharged home with Keflex along with Cipro. The patient was currently saturating 98% on 2 L, and will be admitted to telemetry for further management. The patient was given Lasix 40 mg in the ER and was initially started on a Cardizem drip for the Afib with RVR. PAST MEDICAL HISTORY: Includes coronary artery disease, arrhythmia, atrial fib, hypothyroidism, hypertension, cellulitis, recent admission for cellulitis to left leg treated with antibiotics until 2 days ago. PAST SURGICAL HISTORY: Ablation x5, orthopedic surgery, right knee replacement, endometriosis. PSYCHIATRIC HISTORY: None. SOCIAL HISTORY: Quit smoking more than 10 years ago. FAMILY HISTORY: Reviewed and noncontributory to current presentation. ALLERGIES: ADHESIVE TAPE, AMLODIPINE, LIPITOR, DIGOXIN, MULTAQ, HYDROCHLOROTHIAZIDE, LATEX. HOME MEDICATIONS: 1. Aspirin 81 mg p.o. at bedtime. 2. Vitamin B12 1000 mcg IM Q. month. 3. Zetia 10 mg p.o. at bedtime. 4. Ferrous sulfate 142 mg one tablet p.o. daily. 5. Che 60 mg p.o. daily. 6. Lasix 40 mg p.o. daily. 7. Levothyroxine 100 mcg p.o. daily. 8. Metoprolol 0.5 mg p.o. at bedtime. 9. MiraLAX 17 g p.o. daily. 10. Potassium chloride 100 mEq p.o. daily. 11. Ranitidine 300 mg p.o. daily. 12. Ambien 5 mg p.o. at bedtime. REVIEW OF SYSTEMS: The patient reports irregular heartbeat per home health nurse. Denies any chest pain, palpitations. Does endorse shortness of breath, cough. Reports shortness of breath has been worse in the last 2 days. Reports cellulitis to the left lower extremity. Denies abdominal pain, nausea, vomiting, or diarrhea. All systems were reviewed and are negative unless mentioned in the HPI. PHYSICAL EXAMINATION: VITAL SIGNS: Blood pressure 117/55, pulse is 69, respirations are 20, temp is 97.7, po2 is 97% on 2 L. CONSTITUTIONAL: The patient is alert and oriented to person, place, and time. Appears pain-free. HEAD : Atraumatic and normocephalic. Eyes; eyelids are normal to inspection. Pupils are equally round and reactive to light. ENT: Mucous membranes are moist. Mouth exam is normal. NECK: Normal range of motion. Trachea is midline. RESPIRATORY: Chest mild respiratory distress, appears short of breath. Decreased breath sounds in bilateral lower lobes. Breath sounds are otherwise clear. CARDIOVASCULAR: Rate irregularly irregular. ABDOMEN: Nontender. Bowel sounds are heard. BACK: Normal range of motion. No CVA tenderness. EXTREMITIES: Upper extremity normal range of motion. Motor strength is normal. Sensation is intact. Radial pulses equal bilaterally. Lower extremity, venous stasis to bilateral legs, chronic wound, lower left leg pedal pulses equal bilaterally. NEUROLOGIC: The patient is alert and oriented to person, place, and time. SKIN: As noted above. PSYCHIATRIC: Normal affect. PERTINENT LABORATORY DATA: White blood cell count is 5.7, hemoglobin is 14.5, hematocrit is 46.5, and platelet count is 198. Sodium is 131, potassium is 5.3, chloride is 93, carbon dioxide is 28, gap is 15, BUN is 19, creatinine is 0.82, estimated GFR is 67, glucose is 103, calcium is 9.4, bilirubin is 3.2, AST is 42, ALT is 13, alkaline phosphatase is 128. Troponin x2 undetectable. BNP 647.1, globulin is 4.3. ASSESSMENT/PLAN: 1. Shortness of breath, most likely related to some fluid overload, congestive heart failure exacerbation. Lasix 40 was given in the ER. We will continue that 40 mg IV daily b.i.d. we will ask Cardiology to consult. Diltiazem 5 mg/hr has been ordered, which we will continue, if the patient's rate is rapid ventricular response. If rate controlled, we can discontinue. 2. Hyponatremia. Sodium of 131. We will recheck this in the morning, with fluid overload status, we will monitor. 3. Hyperkalemia. Potassium of 5.3. We will recheck this in the morning. 4. Chloride 93, see #2. 5. Hypothyroidism. We will check a TSH and free T3 and T4 in the morning. 6. Deep venous thrombosis and gastrointestinal prophylaxis have been started. The patient does have a history of not wanting to be fully anticoagulated for her history of atrial fibrillation. She has had 5 ablations. 7. Case discussed with Dr. Ferrera who agrees with plan. 8. Hospital course will be dependent on clinical findings. Job ID: [id number]
[2018-10-13 04:51] LABS: #Basophils 0.1 thou/uL (0.0-0.2); #Lymphocytes 0.7 thou/uL (1.20-3.40); #Monocytes 0.7 thou/uL (0.11-0.59); %Basophils 0.9 % (0.0-1.0); %Eosinophils 0.1 % (0.0-10.0); %Lymphocytes 13.3 % (21.0-51.0); %Monocytes 12.5 % (0.0-10.0); %Neutrophils 73.2 % (42.0-75.0); Hemoglobin 13.7 g/dL (12.0-16.0); Mean Corpuscular HGB CONC 31.2 g/dL (32.0-36.0); Mean Corpuscular Hemoglobin 29.9 pg (27.0-31.0); Mean Corpuscular Volume 95.8 fL (78.0-98.0); Mean Platelet Volume 6.9 fL (7.4-10.4); Platelet Count 199 thou/uL (130-400); RBC Distribution Width 14.7 % (11.5-14.5); Red Blood Cell (RBC) Count 4.58 mill/uL (4.20-5.40); White Blood Cell (WBC) Count 5.5 thou/uL (4.8-10.8)
[2018-10-13 05:12] LABS: Anion Gap 11 mmol/L (10-20); BUN (Urea Nitrogen) 20 mg/dL (9.8-20.1); Calc. Creatinine Clearance 87 mL/min (70-130); Calcium 9.3 mg/dL (7.8-10.44); Carbon Dioxide 32 mmol/L (23-31); Chloride 93 mmol/L (98-107); Estimated GFR-MDRD 65; Glucose 91 mg/dL (83-110); Potassium 4.4 mmol/L (3.5-5.1); Sodium 132 mmol/L (136-145)
[2018-10-13 05:30] LABS: Free T4 (Free Thyroxine) 1.13 ng/dL (0.70-1.48); Thyroid Stimulating Hormone 1.1722 uIU/mL (0.35-4.94)
[2018-10-13] MEDS: Acetaminophen 325 MG TAB PO PRN ×2 (06:07→15:57)
[2018-10-13] MEDS: Furosemide 40 MG/4 ML VIAL SLOW IVP SCH ×2 (06:08→14:20)
[2018-10-13] MEDS: Levothyroxine Sodium 100 MCG TAB PO SCH (06:08)
[2018-10-13] MEDS: Famotidine 20 MG TAB PO SCH ×2 (08:57→20:29)
[2018-10-13] MEDS: Enoxaparin Sodium 40 MG/0.4 ML SYRINGE SC SCH (08:58)
[2018-10-13] MEDS ORDERED: Loratadine 10 MG TAB PO PRN (09:00)
[2018-10-13] MEDS: Ferrous Sulfate 325 MG TAB PO SCH (12:16)
[2018-10-13] MEDS ORDERED: Diltiazem 125 MG in Sodium Chloride 0.9% 100 ML IVPB SCH (14:45)
--- NOTE | 2018-10-13 18:31 | PRG ---
DATE OF SERVICE: 10/13/2018 SUBJECTIVE: The patient is seen and examined at bedside. She is feeling somewhat better. Her shortness of breath improved and she noticed that her chest tightness improved. OBJECTIVE: VITAL SIGNS: Blood pressure is 128/61, pulse is 82, temperature is 98.0, respirations 14, O2 saturation 94% on 2 L by nasal cannula. HEENT: Her head is atraumatic and normocephalic. Eyes are PERRLA. Sclerae are nonicteric. Oral mucosa is moist. NECK: Supple. LUNGS: Breath sounds diminished at both bases, more on the right than on the left. HEART: S1 and S2, regular. No S3. No S4. ABDOMEN: Soft, nontender, and obese. EXTREMITIES: No clubbing, cyanosis, or edema. NEUROLOGIC: She is alert and oriented x4. There are no any motor or sensory deficits. Cranial nerves are intact. LABORATORY DATA: Showed normal CBC. Chemistry showed a sodium of 132, potassium 4.4, chloride 93, CO2 of 32, BUN 20, creatinine 0.85. The rest of chemistry within normal limits. Free T4 of 1.13, free T3 of 1.79, and TSH third generation 1.172. IMPRESSION: 1. Atrial fibrillation with rapid ventricular response, converted to normal sinus rhythm before the patient got to the floor. 2. Congestive heart failure, diastolic function on her previous echo done in June 2018, was difficult to assess since she was in atrial fibrillation. 3. Severe tricuspid regurgitation. 4. Moderate mitral regurgitation based on the above-mentioned echo. 5. Hyponatremia, most likely fluid overload status. 6. Hypothyroidism with a normal levels of T3, T4, and TSH. 7. Stasis ulcer/cellulitis. The patient was seen by Dr. Colunga recently and her antibiotics were stopped disease. 8. Moderate right pleural effusion, not significantly changed from prior studies. PLAN: Plan is to continue her diuresis. Awaiting for Cardiology to see her. We will obtain also pulmonary consult regarding her right pleural effusion. This could be related to her CHF, but because of the size of the effusion, this needs to be tapped and checked for the type of effusion . Continue aspirin 81 mg once a day, her normal dose and Cardiology will make decision whether they still recommend her to be on anticoagulation, although there is a history that she refused anticoagulation in the past. Follow up her input and output on daily basis and her kidney function as well. Job ID: [id number]
[2018-10-13] MEDS: Aspirin 81 mg Enteric Coated Tablet PO SCH (20:30)
[2018-10-13] MEDS: Ezetimibe 10 MG TAB PO SCH (20:30)
--- NOTE | 2018-10-13 21:31 | CON ---
DATE OF CONSULTATION: HISTORY OF PRESENT ILLNESS: The patient is a 78-year-old woman who presents for evaluation of dyspnea and weakness. The patient has a long history of atrial fibrillation and she has undergone multiple cardiac ablations. She has also had placement of a Watchman device. The patient has also had difficulty with cellulitis. She presented once again to the hospital with dyspnea. She reported increasing lower extremity swelling. The patient was noted to have a rapid heart rate, admitted for further evaluation and the patient denies having any chest discomfort. PAST MEDICAL HISTORY: Significant for: 1. Atrial fibrillation. 2. Hypertension. 3. Moderate mitral regurgitation. 4. Hypertension. 5. Hyperlipidemia. ALLERGIC: She is allergic to amlodipine, ciprofloxacin digoxin, atorvastatin, Multaq, digoxin and adhesive tape. MEDICATIONS ON ADMISSION: Include: 1. Lasix 40 daily. 2. Zantac 1 tab daily. 3. Toprol 50 mg half tablet daily. 4. Zetia 10 daily. 5. Potassium 10 daily. 6. Synthroid 100 mcg daily. REVIEW OF SYSTEMS: Noticeable for increasing constipation. FAMILY HISTORY: Positive family history of coronary artery disease. PHYSICAL EXAMINATION: GENERAL: Obese woman, in acute distress with a blood pressure of 135/65. NECK: Full. LUNGS: Clear to auscultation. HEART: Irregular rate and rhythm. Normal S1, S2. 1/6 systolic murmur. ABDOMEN: Distended. EXTREMITIES: Have severe bilateral edema with bandages over both lower extremities. VASCULAR: Radial pulses are 2+. LABORATORY DATA: Sodium 132, potassium 4.4, chloride 93, bicarb 32, BUN 20, creatinine 0.85. Troponin was 0.013. Her BNP was 647. Her white blood cell count was 5.5, hemoglobin 13.7, hematocrit 43.9, platelet 199. Her EKG revealed rapid atrial fibrillation with Q-wave suggestive of previous anterior and inferior infarct. IMPRESSION: 1. Rapid atrial fibrillation. 2. Congestive heart failure. 3. History of a Watchman device. 4. Mitral regurgitation. 5. Chronic cellulitis. 6. Pulmonary hypertension. This patient presents with rapid atrial fibrillation. She was initially placed on Cardizem. She went back into atrial fibrillation. She will be restarted on this medication. We would also place the patient on metoprolol. The patient does not need to be anticoagulated since she has had placement of a Watchman device from a cardiac standpoint. She had a recent echocardiogram, which revealed normal left systolic function with severe tricuspid regurgitation. At this time, the patient is being diuresed with IV Lasix. We will follow this patient with you through her hospitalization. Job ID: [id number]
[2018-10-13] MEDS ORDERED: Zolpidem Tartrate 5 MG TAB PO PRN (22:05)
[2018-10-14] MEDS: Furosemide 40 MG/4 ML VIAL SLOW IVP SCH (06:03)
[2018-10-14] MEDS: Levothyroxine Sodium 100 MCG TAB PO SCH (06:03)
[2018-10-14 06:18] LABS: Anion Gap 15 mmol/L (10-20); BUN (Urea Nitrogen) 24 mg/dL (9.8-20.1); Calc. Creatinine Clearance 72 mL/min (70-130); Calcium 9.4 mg/dL (7.8-10.44); Carbon Dioxide 27 mmol/L (23-31); Chloride 93 mmol/L (98-107); Estimated GFR-MDRD 52; Glucose 91 mg/dL (83-110); Potassium 4.9 mmol/L (3.5-5.1); Sodium 130 mmol/L (136-145)
[2018-10-14 06:40] LABS: #Lymphocytes 0.8 thou/uL (1.20-3.40); #Monocytes 0.7 thou/uL (0.11-0.59); #Neutrophils 3.8 thou/uL (1.40-6.50); %Basophils 0.7 % (0.0-1.0); %Eosinophils 0.2 % (0.0-10.0); %Lymphocytes 14.4 % (21.0-51.0); %Monocytes 12.4 % (0.0-10.0); %Neutrophils 72.3 % (42.0-75.0); Hemoglobin 14.3 g/dL (12.0-16.0); Platelet Count 186 thou/uL (130-400); RBC Distribution Width 14.9 % (11.5-14.5); Red Blood Cell (RBC) Count 4.77 mill/uL (4.20-5.40); White Blood Cell (WBC) Count 5.3 thou/uL (4.8-10.8)
[2018-10-14] MEDS ORDERED: Furosemide 40 MG/4 ML VIAL SLOW IVP SCH ×4 (08:55→14:00)
[2018-10-14] MEDS: Enoxaparin Sodium 40 MG/0.4 ML SYRINGE SC SCH (09:28)
[2018-10-14] MEDS: Famotidine 20 MG TAB PO SCH ×2 (09:28→21:46)
[2018-10-14] MEDS: Ferrous Sulfate 325 MG TAB PO SCH (09:29)
[2018-10-14 15:56] LABS: Actual Bicarbonate (HCO3a) 36.1 mEq/L (22-28); Base Excess (BEa) 0.8 mEq/L (-2.0 to +3.0); Calcium, Ionized 1.23 mmol/L (1.12-1.30); Carboxyhemoglobin (COHb) 1.6 gm% (0.0-3.0); Hemoglobin (Hb) 15.9 g/dL (12.0-16.0); O2 Tension (PaO2) 70.9 mmHg (> 70.0); Potassium - ABG Lab 4.97 mmol/L (3.70-5.30)
[2018-10-14 15:57] LABS: CO2 Tension 129.2 mmHg (35.0-45.0); Puncture Site RRA; pH, Arterial 7.06 (7.35-7.45)
--- NOTE | 2018-10-14 16:14 | PDOC.PN ---
- Subjective Encounter Start Date: 10/14/18 Encounter Start Time: 16:12 Ms. Escobar was seen today in follow-up of AFIB with RVR. She was seen earlier today around 11AM and again now. Earlier she was more awake, but a bit drowsy. A code ermias was called now at 4:13 pm due to decrease in responsiveness. She is arousable but falls immediately back to sleep. Her breaths are shallow. - Objective MAR Reviewed: Yes Vital Signs & Weight: Vital Signs (12 hours) Temp Pulse Resp BP Pulse Ox 10/14/18 12:33 97.8 F 51 L 14 117/53 L 99 10/14/18 08:00 92 L 10/14/18 07:58 97.6 F 77 14 122/63 92 L Weight Admit Weight 222 lb 9.6 oz Weight 222 lb 9.6 oz I&O: 10/13/18 10/14/18 10/15/18 06:59 06:59 06:59 Intake Total 1140 Output Total 1300 Balance -160 Result Diagrams: 10/14/18 05:29 10/14/18 05:29 Phys Exam - Physical Examination HEENT: PERRLA + distended neck veins Respiratory: no wheezing Cardiovascular: RRR, no significant murmur, no rub Gastrointestinal: soft, non-tender, no distention, positive bowel sounds Musculoskeletal: pulses present, edema present + bilateral lower extremity and upper extremity edema + bruising bilaterally Dx/Plan (1) Respiratory failure with hypercapnia Code(s): J96.92 - RESPIRATORY FAILURE, UNSPECIFIED WITH HYPERCAPNIA Status: Acute (2) Atrial fibrillation Code(s): I48.91 - UNSPECIFIED ATRIAL FIBRILLATION Status: Chronic Comment: s /p multiple ablations and Watchman device (3) Diastolic heart failure Code(s): I50.30 - UNSPECIFIED DIASTOLIC (CONGESTIVE) HEART FAILURE Status: Chronic Qualifiers: Heart failure chronicity: chronic Qualified Code(s): I50.32 - Chronic diastolic (congestive) heart failure (4) Hypertension Code(s): I10 - ESSENTIAL (PRIMARY) HYPERTENSION Status: Chronic Qualifiers: Hypertension type: essential hypertension Qualified Code(s): I10 - Essential (primary) hypertension Comment: well controlled (5) Morbid obesity Code(s): E66.01 - MORBID (SEVERE) OBESITY DUE TO EXCESS CALORIES Status: Chronic - Plan * Acute hypercapnic respiratory failure- trixie monson was called- an ABG was ordered and she was found to be severely hypercapnic. Dr. Leonard was called, and she has been intubated and transferred to the ICU * A chest X-ray has been ordered * AFIB- she has converted to sinus rhythm, and her heart rate is a bit slow * Acute on chronic diastolic heart failure- clinically she appears to be volume overloaded, despite a low urine output-Discussed with Dr. Leonard- will observe for now * HTN- blood pressure is a bit on the lower end- will monitor.
[2018-10-14] MEDS ORDERED: SYSTANE 3.5 GM TUBE EA EYE PRN (16:29)
[2018-10-14] MEDS ORDERED: Ventilator Sedation Protocol 1 EACH FS SCH (16:30)
[2018-10-14 16:46] LABS: Lactic Acid 2.1 mmol/L (0.5-2.2)
[2018-10-14 16:48] LABS: Actual Bicarbonate (HCO3a) 28.1 mEq/L (22-28); Calcium, Ionized 1.18 mmol/L (1.12-1.30); Carboxyhemoglobin (COHb) 1.5 gm% (0.0-3.0); Hemoglobin (Hb) 15.7 g/dL (12.0-16.0); Potassium - ABG Lab 4.84 mmol/L (3.70-5.30)
[2018-10-14 16:50] LABS: CO2 Tension 65.8 mmHg (35.0-45.0); Puncture Site RRA; pH, Arterial 7.25 (7.35-7.45)
[2018-10-14] MEDS ORDERED: Propofol 1,000 MG/100 ML VIAL IV ONE (16:50)
[2018-10-14] MEDS ORDERED: CCU Electrolyte Replacement 1 EACH FS SCH (16:53)
[2018-10-14] MEDS ORDERED: Ventilator Sedation Protocol 1 EACH FS ONE (16:53)
[2018-10-14] MEDS ORDERED: DISCONTINUE PREVIOUS NARCOTIC PAIN MEDICATIONS AND BENZODIAZEPINES FS SCH (16:55)
[2018-10-14] MEDS ORDERED: Potassium Phosphate 9 MMOL in Sodium Chloride 0.9% 100 ML IVPB PRN (16:55)
[2018-10-14] MEDS ORDERED: Morphine 2 MG/ML SYRINGE SLOW IVP PRN (16:55)
[2018-10-14] MEDS ORDERED: Magnesium 2 GM/50 ML 2 GM in Premix Bag 1 BAG IVPB PRN (16:55)
[2018-10-14] MEDS ORDERED: CCU ELECTROLYTE REPLACEMENT PROTOCOL FS PRN (16:55)
[2018-10-14] MEDS ORDERED: Fentanyl BOLUS 250 ML IVPB PRN (16:55)
[2018-10-14] MEDS ORDERED: Potassium Chloride 20 MEQ TAB PO PRN (16:55)
[2018-10-14] MEDS ORDERED: PHOS-NAK 1 PKT PACK PO PRN ×2 (16:55)
[2018-10-14] MEDS: methylPREDNISolone Sod Succ 40 MG VIAL IVP SCH (16:55)
[2018-10-14] MEDS ORDERED: Magnesium Oxide 400 MG TAB PO PRN ×2 (16:55)
[2018-10-14] MEDS ORDERED: Potassium Phosphate 12 MMOL in Sodium Chloride 0.9% 250 ML 250 ML IV PRN (16:55)
[2018-10-14] MEDS ORDERED: Potassium Chloride 40 MEQ in Premix Bag 1 BAG IVPB PRN (16:55)
[2018-10-14] MEDS ORDERED: Potassium Phosphate 15 MMOL in Sodium Chloride 0.9% 250 ML 250 ML IV PRN (16:55)
[2018-10-14] MEDS ORDERED: Lorazepam 2 MG/ML VIAL SLOW IVP PRN (16:55)
[2018-10-14] MEDS ORDERED: Propofol BOLUS 1,000 MG/100 ML VIAL IV PRN (16:55)
[2018-10-14] MEDS ORDERED: Potassium Chloride 40 MEQ in Sodium Chloride 0.9% 250 ML 250 ML IVPB PRN (16:55)
--- NOTE | 2018-10-14 17:17 | RAD ---
PORTABLE CHEST ONE VIEW: Date: 10-14-18 Time: 4:19 p.m. Comparison: Respiratory failure. FINDINGS/IMPRESSION: Comparison made with exam 10-12-18. There has been interval placement of an endotracheal tube with tip just below the level of the clavic ular heads. The heart size is enlarged. There is a right sided pleural effusions. No pneumothoraces are seen. Dis placed ununited fracture of the left proximal humerus is again noted. POS: [facility]
[2018-10-14] MEDS: fentaNYL Citrate/PF 2,000 MCG in Sodium Chloride 0.9% 60 ML IV SCH (17:31)
[2018-10-14] MEDS: Ezetimibe 10 MG TAB PO SCH (21:46)
[2018-10-14] MEDS: Aspirin 81 mg Enteric Coated Tablet PO SCH (21:46)
[2018-10-15] MEDS: methylPREDNISolone Sod Succ 40 MG VIAL IVP SCH ×5 (00:42→23:07)
[2018-10-15] MEDS: Propofol 1,000 MG/100 ML VIAL IV PRN ×4 (00:42→23:07)
[2018-10-15] MEDS ORDERED: Sodium Chloride 0.9% 15 ML NEB ONE (03:00)
[2018-10-15] MEDS: Levothyroxine Sodium 100 MCG TAB PO SCH (05:39)
[2018-10-15] MEDS: Famotidine 20 MG TAB PO SCH (08:32)
[2018-10-15] MEDS: Ferrous Sulfate 325 MG TAB PO SCH (08:32)
[2018-10-15] MEDS: Enoxaparin Sodium 40 MG/0.4 ML SYRINGE SC SCH (08:33)
[2018-10-15 09:14] LABS: #Lymphocytes 0.7 thou/uL (1.20-3.40); #Monocytes 0.2 thou/uL (0.11-0.59); #Neutrophils 5.6 thou/uL (1.40-6.50); %Basophils 0.1 % (0.0-1.0); %Eosinophils 0.1 % (0.0-10.0); %Lymphocytes 11.1 % (21.0-51.0); %Monocytes 3.7 % (0.0-10.0); %Neutrophils 85.1 % (42.0-75.0); Hemoglobin 14.6 g/dL (12.0-16.0); Mean Corpuscular Hemoglobin 29.2 pg (27.0-31.0); Mean Corpuscular Volume 94.4 fL (78.0-98.0); Mean Platelet Volume 7.2 fL (7.4-10.4); Platelet Count 150 thou/uL (130-400); Red Blood Cell (RBC) Count 4.99 mill/uL (4.20-5.40); White Blood Cell (WBC) Count 6.6 thou/uL (4.8-10.8)
[2018-10-15 09:31] LABS: Anion Gap 16 mmol/L (10-20); BUN (Urea Nitrogen) 32 mg/dL (9.8-20.1); Calc. Creatinine Clearance 52 mL/min (70-130); Calcium 8.7 mg/dL (7.8-10.44); Carbon Dioxide 29 mmol/L (23-31); Chloride 93 mmol/L (98-107); Estimated GFR-MDRD 35; Glucose 107 mg/dL (83-110); Potassium 3.7 mmol/L (3.5-5.1); Sodium 134 mmol/L (136-145)
--- NOTE | 2018-10-15 10:26 | OP ---
DATE OF PROCEDURE: 10/14/2018 SERVICE: Pulmonary Medicine. PROCEDURE PERFORMED: Emergent endotracheal intubation. CONSENT: Procedure was performed emergently secondary to clinical condition and respiratory failure. MEDICATIONS USED: Etomidate 20 mg IV push. PREPROCEDURE DIAGNOSES: Acute hypoxic and hypercapnic respiratory failure. POSTPROCEDURE DIAGNOSES: Acute hypoxic and hypercapnic respiratory failure. DESCRIPTION OF PROCEDURE: Vital sign monitoring was accomplished by noninvasive hemodynamic monitoring, pulse oximetry, and telemetry. In the supine position, the patient was preoxygenated with [id number] ventilation, maintained with saturations of 100%. Following induction of anesthesia, a GlideScope was inserted in the mouth offering clear identification of the posterior oropharynx and laryngeal structures with a grade 1 view. An endotracheal tube was visualized passing through the vocal cords. Placement was confirmed by condensation in the endotracheal tube, colorimetric capnography, and bi-axillary chest auscultation. Endotracheal tube was secured at 23 cm, measured at the teeth. The patient was placed on mechanical ventilation with good return of volumes. Postprocedure x-ray demonstrated good location for the endotracheal tube within the trachea. ESTIMATED BLOOD LOSS: None. COMPLICATIONS: None. Job ID: [id number] [facility]
--- NOTE | 2018-10-15 11:33 | CON ---
DATE OF CONSULTATION: 10/14/2018 SERVICE: Pulmonary Medicine. REASON FOR CONSULTATION: Respiratory failure. HISTORY OF PRESENT ILLNESS: The patient is a 78-year-old white female with past medical history significant for chronic diastolic heart failure and atrial fibrillation. She was in her usual state of health when she presented to the hospital on the 12 October 2018 with complaints of increasing shortness of breath. Ultimately, she was discovered to be an acute exacerbation of diastolic heart failure. She was tucked into the telemetry unit. Over the last couple of days, she was doing a little bit better, but this morning, she was somnolent. As the day progressed, she developed increasing lethargy. Ultimately, Dann Knight was called. An ABG was performed demonstrating a pH is 7.06 and a pCO2 over 127. Because of this, I was given a come quick phone call. I arrived on the floor to discover a completely obtunded patient. She would open up her eyes with noxious stimuli and grimace, but outside of that, she would fall back to sleep without any excessive stimulation. She cannot provide any additional elements of the history at this point. I have no reports of fevers or chills. PAST MEDICAL HISTORY: 1. Coronary artery disease. 2. Atrial fibrillation. 3. Hypertension. 4. Hypothyroidism. 5. Recent episode of cellulitis, status post antibiotic course. PAST SURGICAL HISTORY: 1. Cardiac ablation x5. 2. Orthopedic surgery. 3. Right knee replacement. SOCIAL HISTORY: She quit smoking more than 10 years ago, but prior to that had an extensive pack-year history of smoking. There is no report of alcohol or illicit drug use. FAMILY HISTORY: Noncontributory. ALLERGIES: AMLODIPINE, LIPITOR, DIGOXIN, MULTAQ, HYDROCHLOROTHIAZIDE, AND LATEX. MEDICATIONS: List of her inpatient medications was reviewed. Multiple updates were made at this time. REVIEW OF SYSTEMS: This cannot be obtained as the patient is currently obtunded. PHYSICAL EXAMINATION: VITAL SIGNS: Afebrile, pulse 51, blood pressure 117/53, respirations 14, and saturation 99%, previously on 3 L nasal cannula. GENERAL: The patient is completely obtunded. With noxious stimuli, she will barely open her eyes. She drifts back to sleep without stimulation. HEENT: Normocephalic and atraumatic. Sclerae white. Conjunctivae pink. Oral mucosa is moist without lesions. LUNGS: Decent air entry on the left. The right has decreased air entry at the base. There is absolutely no prolonged expiratory phase or wheezing. I do not appreciate any crackles. HEART: Bradycardic. Regular. ABDOMEN: Soft, nontender, and nondistended. Bowel sounds are positive. MUSCULOSKELETAL: No cyanosis or clubbing. I do not appreciate any pitting in the bilateral lower extremities. NEUROLOGIC: Grossly nonfocal. LABORATORY DATA: WBC 5.3, hemoglobin 14.3, platelets 186,000. A pH 7.02, pCO2 of 129, pO2 of 71, corresponding to a saturation of 91%. She is on 2 L nasal cannula at this time. Basic metabolic profile and liver function studies were previously unremarkable. Troponins are negative x3. BNP was 647, which is in historic high for this patient that was 2 days ago. IMAGING STUDIES: Chest x-ray demonstrates right-sided effusion is present. Otherwise, I do not appreciate any acute cardiopulmonary abnormality. The heart is extremely enlarged. The carinal angle is wide suggesting evidence of left atrial dilation. The left humerus is fractured. ASSESSMENT: 1. Acute hypoxic and hypercapnic respiratory failure. 2. Metabolic encephalopathy. 3. Pleural effusion. 4. Acute on chronic diastolic heart failure. 5. Atrial fibrillation with history of rapid ventricular rate. DISCUSSION AND PLAN: We are going to emergently intubate the patient and move her to the ICU. Ventilator bundle will be initiated. I will get a stat chest x-ray. In the next 24 to 48 hours when she blows off some carbon dioxide, we will hope to see her mentation improved. If it does, spontaneous breathing trial and subsequent extubation will be considered. I will initiate some steroids. CRITICAL CARE TIME: 30 minutes, unbundled from procedure. Job ID: [id number] [facility]TDD
--- NOTE | 2018-10-15 13:32 | PDOC.PN ---
- Subjective Encounter Start Date: 10/15/18 Encounter Start Time: 13:30 Ms. Escobar was seen today in follow-up of respiratory failure. She is intubated and sedated. - Objective MAR Reviewed: Yes Vital Signs & Weight: Vital Signs (12 hours) Temp Pulse Pulse Pulse Resp BP BP 10/15/18 13:07 73 10/15/18 10:27 73 10/15/18 09:46 71 71 101/48 L 104/45 L 10/15/18 08:00 17 10/15/18 07:00 71 10/15/18 06:00 17 10/15/18 04:00 99.7 F H 17 10/15/18 02:57 71 10/15/18 02:00 17 Pulse Ox Pulse Ox Pulse Ox 10/15/18 13:07 10/15/18 10:27 10/15/18 09:46 92 L 94 L 10/15/18 08:00 95 10/15/18 07:00 10/15/18 06:00 10/15/18 04:00 92 L 10/15/18 02:57 10/15/18 02:00 Weight Admit Weight 222 lb 9.6 oz Weight 222 lb 9.6 oz Most Recent Monitor Data Heart Rate from ECG 74 NIBP 115/53 NIBP BP-Mean 73 Respiration from ECG 17 SpO2 95 I&O: 10/14/18 10/15/18 10/16/18 06:59 06:59 06:59 Intake Total 1140 309.8 Output Total 1300 1505 Balance -160 -1195.2 Result Diagrams: 10/15/18 09:02 10/15/18 09:02 Additional Labs: Accuchecks 10/14/18 15:50 POC Glucose 97 Phys Exam - Physical Examination HEENT: PERRLA decreased breath sounds at the bases Cardiovascular: RRR, no significant murmur, no rub Gastrointestinal: soft, no distention, positive bowel sounds Musculoskeletal: pulses present, edema present + diffuse edema bilaterally in both uppper and lower extremities Dx/Plan (1) Respiratory failure with hypercapnia Code(s): J96.92 - RESPIRATORY FAILURE, UNSPECIFIED WITH HYPERCAPNIA Status: Acute (2) Atrial fibrillation Code(s): I48.91 - UNSPECIFIED ATRIAL FIBRILLATION Status: Chronic Comment: s /p multiple ablations and Watchman device (3) Diastolic heart failure Code(s): I50.30 - UNSPECIFIED DIASTOLIC (CONGESTIVE) HEART FAILURE Status: Chronic Qualifiers: Heart failure chronicity: chronic Qualified Code(s): I50.32 - Chronic diastolic (congestive) heart failure (4) Hypertension Code(s): I10 - ESSENTIAL (PRIMARY) HYPERTENSION Status: Chronic Qualifiers: Hypertension type: essential hypertension Qualified Code(s): I10 - Essential (primary) hypertension Comment: well controlled (5) Morbid obesity Code(s): E66.01 - MORBID (SEVERE) OBESITY DUE TO EXCESS CALORIES Status: Chronic (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 Code(s): S42.302K - UNSP FX SHAFT OF HUMERUS, LEFT ARM, SUBS FOR FX W NONUNION Status: Chronic - Plan * Acute respiratory failure- likely from large right pleural effusion- would diurese with IV Lasix, however her urine output as been low, and her blood pressure is borderline- will defer to Cardiology- may need low dose Dopamine- However this would aggravate her heart rate * AFIB- her heart rate is stable * Left Humerus fracture- this is old, but worse from the previous X-ray- not sure if her Orthopedic Surgeon is aware of the non-union- * HTN- blood pressure is borderline * Acute on chronic diastolic heart failure- will defer to Cardiology.
--- NOTE | 2018-10-15 13:56 | PDOC.EVN ---
Event Note - Event Note Event Note: Discussed with Dr. St. He is out of town, but recommends obtaining a shoulder X-Ray to get a better look. He suspects that there will be not be much that can been done at this point. He says that Dr. Lubin is instructional technology facilitator.
--- NOTE | 2018-10-15 15:55 | PDOC.CTH ---
Cardiology Progress Note - Subjective pt intubated, sedated. - Objective Vital Signs Temp Pulse Pulse Pulse Resp BP BP 10/15/18 14:17 82 10/15/18 13:07 73 10/15/18 12:00 98.9 F 10/15/18 10:27 73 10/15/18 09:46 71 71 101/48 L 104/45 L 10/15/18 08:00 99.8 F H 17 10/15/18 07:00 71 10/15/18 06:00 17 10/15/18 04:00 99.7 F H 17 Pulse Ox Pulse Ox Pulse Ox 10/15/18 14:17 10/15/18 13:07 10/15/18 12:00 10/15/18 10:27 10/15/18 09:46 92 L 94 L 10/15/18 08:00 95 10/15/18 07:00 10/15/18 06:00 10/15/18 04:00 92 L Admit Weight 222 lb 9.6 oz Weight 222 lb 9.6 oz 10/14/18 10/15/18 10/16/18 06:59 06:59 06:59 Intake Total 1140 309.8 120 Output Total 1300 1505 270 Balance -160 -1195.2 -150 - Physical Examination General/Neuro: NAD Neck: no JVD present Lungs: CTA, unlabored respirations Heart: RRR Abdomen: NT/ND, soft Extremities: + femoral B - Telemetry Telemetry Rhythm: SR - Labs Result Diagrams: 10/15/18 09:02 10/15/18 09:02 Troponin/CKMB Troponin I 0.013 ng/mL (< 0.028) 10/12/18 23:22 - Assessment/Plan Afib Respiratory failure Diastolic dysfunction Rate is controlled On BB Cotinue vent support Diuresis No ACT given h/o watchman Add multaq
--- NOTE | 2018-10-15 15:58 | RAD ---
LEFT SHOULDER 3 VIEWS: HISTORY: Humerus fracture. FINDINGS: The fracture has been noted on prior chest films dating back to 2018. There is a displaced fracture through the humeral neck. Portions of the humeral head reside over the glenoid. The humeral shaft is seen inferior with almost 90 degrees angulation from the residual hum eral head. POS: TPC
--- NOTE | 2018-10-15 16:39 | PRG ---
DATE OF SERVICE: 10/15/2018 SERVICE: Pulmonary Medicine. INTERVAL HISTORY: The patient is doing really well from respiratory standpoint. She is breathing comfortably. She is on mechanical ventilator. She is requiring a little bit of sedation to maintain comfort. She will wake up and follow some simple commands, but has fairly significant weakness. She is moving all 4 extremities. There were no reports of events from nursing overnight. PHYSICAL EXAMINATION: VITAL SIGNS: Afebrile. Pulse 81, blood pressure 104/43, respirations 17, and saturation 93% on 40% FiO2 and a PEEP of 5. GENERAL: The patient is intubated and sedated. HEENT: Normocephalic and atraumatic. Sclerae are white. Conjunctivae are pink. Oral mucosa is moist without lesions. LUNGS: Decent air entry. There is a prolonged expiratory phase and polyphonic wheezing. Minimal crackles are present dependently. HEART: Normal rate, regular. ABDOMEN: Soft, nontender, and nondistended. Bowel sounds are positive. MUSCULOSKELETAL: No cyanosis or clubbing. There is trace 1+ pitting in bilateral lower extremities. NEUROLOGIC: Grossly nonfocal. LABORATORY DATA: WBC 6.6, hemoglobin 14.6, platelets 150,000. PH 7.25, pCO2 of 65, following intubation yesterday. Creatinine 1.43 and gently up trending, BUN 32. Basic metabolic profile is otherwise unremarkable/stable. TSH 0.9. Lactate yesterday was 2.1. Respiratory culture is negative to date. IMAGING: Shoulder x-ray shows chronic fracture noted, first noted in 2018. ASSESSMENT: 1. Acute hypoxic and hypercapnic respiratory failure. 2. Chronic obstructive pulmonary disease with acute exacerbation, suspected. 3. Metabolic encephalopathy, improving. 4. Pleural effusion. 5. Acute on chronic diastolic heart failure. 6. Atrial fibrillation with RVR. DISCUSSION AND PLAN: We will leave the patient on mechanical ventilator. We will continue on nebulized medications, steroids, and antibiotics. At this point, she still has a fairly significant obstructive airflow limitation. As such, another day of ventilator support is indicated. Once this improves, we will put on a spontaneous breathing trial, and consider her for extubation. We will continue to wean oxygen through time. CRITICAL CARE TIME: 30 minutes. Job ID: [id number] MTDD
[2018-10-15] MEDS: Aspirin 81 mg Enteric Coated Tablet PO SCH (20:51)
[2018-10-15] MEDS: Ezetimibe 10 MG TAB PO SCH (20:51)
[2018-10-15] MEDS: Famotidine/PF 20 mg/2ml Vial SLOW IVP SCH (20:51)
[2018-10-15] MEDS: fentaNYL Citrate/PF 2,000 MCG in Sodium Chloride 0.9% 60 ML IV SCH (23:06)
[2018-10-16 06:10] LABS: Anion Gap 17 mmol/L (10-20); BUN (Urea Nitrogen) 43 mg/dL (9.8-20.1); Calc. Creatinine Clearance 45 mL/min (70-130); Calcium 8.4 mg/dL (7.8-10.44); Carbon Dioxide 27 mmol/L (23-31); Chloride 93 mmol/L (98-107); Estimated GFR-MDRD 30; Glucose 144 mg/dL (83-110); Potassium 3.6 mmol/L (3.5-5.1); Sodium 133 mmol/L (136-145)
[2018-10-16] MEDS: Levothyroxine Sodium 100 MCG TAB PO SCH (06:38)
[2018-10-16] MEDS: methylPREDNISolone Sod Succ 40 MG VIAL IVP SCH ×3 (06:38→17:31)
[2018-10-16 06:45] LABS: Band 4 % (5-11); Hemoglobin 14.1 g/dL (12.0-16.0); Lymphocytes 5 % (21-51); MDiff Complete? YES; Mean Corpuscular HGB CONC 32.2 g/dL (32.0-36.0); Mean Corpuscular Hemoglobin 29.9 pg (27.0-31.0); Mean Platelet Volume 7.3 fL (7.4-10.4); Monocytes 5 % (0-10); Neutrophil 86 % (42-75); Platelet Count 154 thou/uL (130-400); RBC Distribution Width 14.9 % (11.5-14.5); White Blood Cell (WBC) Count 9.2 thou/uL (4.8-10.8)
[2018-10-16] MEDS: Famotidine/PF 20 mg/2ml Vial SLOW IVP SCH (08:13)
[2018-10-16] MEDS: Propofol 1,000 MG/100 ML VIAL IV PRN (08:13)
[2018-10-16] MEDS: Enoxaparin Sodium 40 MG/0.4 ML SYRINGE SC SCH (08:15)
--- NOTE | 2018-10-16 10:58 | PDOC.PN ---
- Subjective Encounter Start Date: 10/16/18 Encounter Start Time: 10:56 Ms Escobar was seen today in follow-up of acute respiratory failure. She is intubated, but awake and alert. She indicates by shaking her head that she is not in any pain. - Objective MAR Reviewed: Yes Vital Signs & Weight: Vital Signs (12 hours) Temp Pulse Resp BP Pulse Ox 10/16/18 10:21 103 H 10/16/18 08:00 98.3 F 21 H 10/16/18 07:47 98.3 F 10/16/18 07:25 87 106/50 L 10/16/18 07:24 86 17 96 10/16/18 06:00 17 10/16/18 04:00 98.4 F 19 10/16/18 02:52 89 10/16/18 02:00 17 10/16/18 00:00 98.1 F 17 10/15/18 23:54 78 105/49 L 10/15/18 23:53 97 Weight Admit Weight 222 lb 9.6 oz Weight 207 lb 3.752 oz Most Recent Monitor Data Heart Rate from ECG 99 NIBP 118/55 NIBP BP-Mean 76 Respiration from ECG 16 SpO2 98 I&O: 10/15/18 10/16/18 10/17/18 06:59 06:59 06:59 Intake Total 309.8 823 Output Total 1505 652 25 Balance -1195.2 171 -25 Result Diagrams: 10/17/18 04:50 10/17/18 04:50 Phys Exam - Physical Examination HEENT: PERRLA + coarse breath sounds with decreased breath sounds at the bases Cardiovascular: RRR, no significant murmur, no rub Gastrointestinal: soft, non-tender, no distention, positive bowel sounds Musculoskeletal: edema present + edema in both upper and lower extremities, + bruising Dx/Plan (1) Respiratory failure with hypercapnia Code(s): J96.92 - RESPIRATORY FAILURE, UNSPECIFIED WITH HYPERCAPNIA Status: Acute (2) Atrial fibrillation Code(s): I48.91 - UNSPECIFIED ATRIAL FIBRILLATION Status: Chronic Comment: s /p multiple ablations and Watchman device (3) Diastolic heart failure Code(s): I50.30 - UNSPECIFIED DIASTOLIC (CONGESTIVE) HEART FAILURE Status: Chronic Qualifiers: Heart failure chronicity: chronic Qualified Code(s): I50.32 - Chronic diastolic (congestive) heart failure (4) Hypertension Code(s): I10 - ESSENTIAL (PRIMARY) HYPERTENSION Status: Chronic Qualifiers: Hypertension type: essential hypertension Qualified Code(s): I10 - Essential (primary) hypertension Comment: well controlled (5) Morbid obesity Code(s): E66.01 - MORBID (SEVERE) OBESITY DUE TO EXCESS CALORIES Status: Chronic (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 Code(s): S42.302K - UNSP FX SHAFT OF HUMERUS, LEFT ARM, SUBS FOR FX W NONUNION Status: Chronic - Plan * Acute respiratory failure- Continue Ventilator support- wean as per PCCM * AFIB- her heart rate has been variable * Pleural effusion- ? from volume overload from acute on chronic diastolic heart failure vs. Parapneumonic? She is not on diuretics, but is in negative fluid balance- will monitor * HTN- blood pressure is stable * Left Humerus fracture-will defer to Orthopedics- * Acute Kidney injury- will monitor.- may need Nephrology evaluation * Begin Tube feeds for nutritional support * Condition is guarded- discussed with patient's daughter- will consult Palliative care for goals of care * Discussed with the patient's daughter about her prognosis with regards to the atrial fibrillation, worsening renal function, and borderline blood pressures. We discussed code status, and she ( the patient's daughter verified that she is a ful code, but said she does have some additional paperwork at home that she needs to review. we discussed what to expect regarding her care going forward. ACP in addition to the routine encounter- 20 minutes. *
--- NOTE | 2018-10-16 12:12 | CON ---
DATE OF CONSULTATION: 10/16/2018 This is Lalita Thayer PA-C dictating a report for Irineo Lubin MD. REQUESTING PHYSICIAN: [facility]. CONSULTING PHYSICIAN: Irineo Lubin MD REASON FOR CONSULTATION: Left proximal humerus nonunion. HISTORY OF PRESENT ILLNESS: This is a 78-year-old female, who has been admitted for acute dyspnea. She is currently on a vent and sedated in the unit. History is limited secondary for this reason. The patient was found to have a left proximal humerus nonunion on x-ray at this hospital stay. We have been following the patient for this particular fracture over the last year. The patient had elected for nonoperative treatment. PAST MEDICAL HISTORY: Significant for coronary artery disease, arrhythmia, atrial fibrillation, hypothyroidism, hypertension, and cellulitis. Recent admission for cellulitis to the left leg treated with antibiotics until 2 days ago, which is also being followed by home health wound care. PAST SURGICAL HISTORY: Cardiac ablation x5, orthopedic surgery with a right total knee replacement, and endometriosis. SOCIAL HISTORY: Former smoker. Quit more than 10 years ago. FAMILY HISTORY: Reviewed, noncontributory. ALLERGIES: INCLUDE ADHESIVE TAPE, AMLODIPINE, LIPITOR, DIGOXIN, HYDROCHLOROTHIAZIDE, AND LATEX. REVIEW OF SYSTEMS: Unobtainable secondary to the patient's current condition. PHYSICAL EXAMINATION: VITAL SIGNS: Pulse of 103, blood pressure 118/57, respiratory rate 19, and temperature 98.3. GENERAL: The patient is intubated and sedated. No family currently at bedside in the ICU at this time. HEENT: Head is normocephalic and atraumatic. NECK: Supple. EXTREMITIES: The upper extremities were evaluated. There is no evidence for acute injury to the left upper extremity. No ecchymosis. No lesions of the skin. Capillary refill is 3 seconds. RADIOGRAPHIC IMAGING: Reviewed by Dr. Lubin as well as myself shows a displaced nonunion of a left proximal humerus fracture. There does appear to be slightly greater displacement than the last x-rays taken in our clinic. 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 PLAN: At this point, the patient is sedated and ventilated in the unit. She has been treated nonoperatively for this fracture, managed by our office for the last year. No change in current plan of care at this time. For further questions, please reconsult Orthopedics Service. Job ID: [id number]
--- NOTE | 2018-10-16 16:20 | PRG ---
DATE OF SERVICE: 10/16/2018 SERVICE: Pulmonary Medicine. INTERVAL HISTORY: The patient is doing fine from a respiratory standpoint. Her oxygen requirements were ever so slightly improved. She continues to have persistent hypoxic failure, and a little bit of obstructive airflow limitation, though the ventilator waveform has improved every day over the last 2 days. She cannot provide any additional elements of the history. Whenever the sedation is lightened, she is fairly significantly agitated. PHYSICAL EXAMINATION: VITAL SIGNS: Afebrile, pulse 90, blood pressure 111/59, respirations 12, saturation 93% on 50% FiO2, and a PEEP of 5. HEENT: Normocephalic and atraumatic. Sclerae white. Conjunctivae pink. Oral mucosa is moist without lesions. LUNGS: Decent air entry. No prolonged expiratory phase or wheezing is appreciated. Dependent crackles are noted. HEART: Normal rate and regular. ABDOMEN: Soft, nontender, nondistended. Bowel sounds are positive. MUSCULOSKELETAL: No cyanosis or clubbing. There is 1 to 2+ pitting throughout. : Roca catheter in place. NEUROLOGIC: Grossly nonfocal. LABORATORY DATA: WBC 9.2, hemoglobin 14.1, platelets 154,000. Creatinine 1.66 and stabilizing. BUN 43, chloride 93, sodium 133. Calcium 8.4. Respiratory cultures unremarkable. ASSESSMENT: 1. Acute hypoxic and hypercapnic respiratory failure. 2. Chronic obstructive pulmonary disease with acute exacerbation, suspected. 3. Metabolic encephalopathy, resolved. 4. Pleural effusion. 5. Acute on chronic diastolic heart failure. 6. Atrial fibrillation with rapid ventricular response. DISCUSSION AND PLAN: The patient's ventilator waveforms improve day by day. We will continue our supportive care including antibiotics, nebulized medications, and steroids. If her oxygen requirements prevent extubation by tomorrow, we will likely do a thoracentesis prior to extubation. If her oxygen requirements are down by tomorrow, we will consider doing a spontaneous breathing trial, and if she meets criteria, extubation will be considered in the morning. I am told that this patient would be able to participate with physical therapy, and that she had good quality of life at baseline. Based on this, unless we find an irreversible condition from which she cannot recover, I believe it would be in keeping with her values to be aggressive with management in an attempt to return to baseline, at least in the short term. Critical care time: 30 minutes. Job ID: [id number] [facility]
--- NOTE | 2018-10-16 17:54 | PDOC.CTH ---
Cardiology Progress Note - Subjective Pt nodding yes and no today. No pain presnet. - Objective Vital Signs Temp Pulse Resp BP Pulse Ox 10/16/18 16:00 98.8 F 15 10/16/18 15:36 86 10/16/18 14:21 90 10/16/18 14:00 13 10/16/18 12:37 86 10/16/18 12:00 98.3 F 17 10/16/18 10:21 103 H 10/16/18 10:00 17 10/16/18 08:00 98.3 F 21 H 96 10/16/18 07:47 98.3 F 10/16/18 07:25 87 106/50 L 10/16/18 07:24 86 17 96 10/16/18 06:00 17 Admit Weight 222 lb 9.6 oz Weight 207 lb 3.752 oz 10/15/18 10/16/18 10/17/18 06:59 06:59 06:59 Intake Total 309.8 823 274 Output Total 1505 652 80 Balance -1195.2 171 194 - Physical Examination General/Neuro: NAD Neck: no JVD present Lungs: unlabored respirations Heart: PMI normal Abdomen: NT/ND, soft Extremities: + femoral B - Labs Result Diagrams: 10/16/18 05:30 10/16/18 05:30 Troponin/CKMB Troponin I 0.013 ng/mL (< 0.028) 10/12/18 23:22 - Assessment/Plan Afib Respiratory failure Diastolic dysfunction Humerus fracture Acute on chronic RI pleural effusion Pt appears rate controlled Vent management per Horacio Consider increasing BB if HR increases On QD lovenox secondary to renal function SW daughter today.
[2018-10-16] MEDS: Ezetimibe 10 MG TAB PO SCH (21:48)
[2018-10-16] MEDS: Aspirin 81 mg Enteric Coated Tablet PO SCH (21:48)
[2018-10-16] MEDS: Metoprolol Tartrate 25 MG TAB PER TUBE SCH ×2 (21:49→22:42)
[2018-10-17] MEDS: methylPREDNISolone Sod Succ 40 MG VIAL IVP SCH ×4 (00:10→16:05)
[2018-10-17 05:00] LABS: #Lymphocytes 0.3 thou/uL (1.20-3.40); #Monocytes 0.5 thou/uL (0.11-0.59); #Neutrophils 8.4 thou/uL (1.40-6.50); %Eosinophils 0.1 % (0.0-10.0); %Lymphocytes 3.5 % (21.0-51.0); %Monocytes 4.9 % (0.0-10.0); %Neutrophils 91.5 % (42.0-75.0); Mean Corpuscular HGB CONC 32.4 g/dL (32.0-36.0); Mean Corpuscular Hemoglobin 30.2 pg (27.0-31.0); Mean Corpuscular Volume 93.4 fL (78.0-98.0); Mean Platelet Volume 6.9 fL (7.4-10.4); Platelet Count 138 thou/uL (130-400); RBC Distribution Width 14.9 % (11.5-14.5); Red Blood Cell (RBC) Count 4.62 mill/uL (4.20-5.40); White Blood Cell (WBC) Count 9.2 thou/uL (4.8-10.8)
[2018-10-17 05:39] LABS: Anion Gap 15 mmol/L (10-20); BUN (Urea Nitrogen) 56 mg/dL (9.8-20.1); Calc. Creatinine Clearance 33 mL/min (70-130); Calcium 8.6 mg/dL (7.8-10.44); Carbon Dioxide 28 mmol/L (23-31); Chloride 92 mmol/L (98-107); Estimated GFR-MDRD 23; Glucose 154 mg/dL (83-110); Potassium 4.2 mmol/L (3.5-5.1); Sodium 131 mmol/L (136-145)
[2018-10-17] MEDS: Levothyroxine Sodium 100 MCG TAB PO SCH (05:59)
--- NOTE | 2018-10-17 06:35 | PDOC.CTH ---
Cardiology Progress Note - Subjective Still intubated and following commands this am - Objective Vital Signs Temp Pulse Resp Pulse Ox 10/17/18 06:00 11 L 10/17/18 04:00 98.2 F 11 L 10/17/18 02:00 14 10/17/18 00:00 98.1 F 11 L 10/16/18 23:42 102 H 11 L 93 L 10/16/18 22:00 11 L 10/16/18 20:00 98.1 F 11 L 93 L Admit Weight 222 lb 9.6 oz Weight 207 lb 3.752 oz 10/15/18 10/16/18 10/17/18 06:59 06:59 06:59 Intake Total 309.8 823 931.1 Output Total 1505 652 161 Balance -1195.2 171 770.1 - Physical Examination General/Neuro: NAD Neck: no JVD present Lungs: unlabored respirations Heart: PMI normal Abdomen: NT/ND, soft Extremities: + femoral B - Labs Result Diagrams: 10/17/18 04:50 10/17/18 04:50 Troponin/CKMB Troponin I 0.013 ng/mL (< 0.028) 10/12/18 23:22 - Assessment/Plan Afib Respiratory failure Diastolic dysfunction Humerus fracture Acute on chronic RI pleural effusion Slowing improving Echo pending Vent jesus be Dr. Leonard On Abx for cellulitis Creat worse today. May need renal involvment
[2018-10-17] MEDS: fentaNYL Citrate/PF 2,000 MCG in Sodium Chloride 0.9% 60 ML IV SCH (07:20)
[2018-10-17] MEDS: Metoprolol Tartrate 25 MG TAB PER TUBE SCH ×2 (08:01→20:35)
[2018-10-17] MEDS: Enoxaparin Sodium 40 MG/0.4 ML SYRINGE SC SCH (08:01)
[2018-10-17] MEDS: Famotidine/PF 20 mg/2ml Vial SLOW IVP SCH (08:02)
--- NOTE | 2018-10-17 10:26 | PDOC.PN ---
- Subjective Encounter Start Date: 10/17/18 Encounter Start Time: 10:25 Ms. Escobar was seen today in follow-up of acute respiratory failure. She is awake and alert. She follows commands. - Objective MAR Reviewed: Yes Vital Signs & Weight: Vital Signs (12 hours) Temp Pulse Resp BP Pulse Ox 10/17/18 10:19 90 143/93 H 10/17/18 10:00 13 10/17/18 07:57 11 L 10/17/18 07:30 92 L 10/17/18 07:26 78 90/63 10/17/18 06:00 11 L 10/17/18 04:00 98.2 F 11 L 10/17/18 02:00 14 10/17/18 00:00 98.1 F 11 L 10/16/18 23:42 102 H 11 L 93 L Weight Admit Weight 222 lb 9.6 oz Weight 207 lb 3.752 oz Most Recent Monitor Data Heart Rate from ECG 91 NIBP 143/93 NIBP BP-Mean 109 Respiration from ECG 14 SpO2 96 I&O: 10/16/18 10/17/18 10/18/18 06:59 06:59 06:59 Intake Total 823 931.1 400 Output Total 652 161 95 Balance 171 770.1 305 Result Diagrams: 10/17/18 04:50 10/17/18 04:50 Phys Exam - Physical Examination HEENT: PERRLA Respiratory: no wheezing + decreased breath sounds at the right base Cardiovascular: RRR, no significant murmur, no rub Gastrointestinal: soft, non-tender, no distention, positive bowel sounds Musculoskeletal: pulses present, edema present + edema in both upper and lower extremities + bruising bilaterally Dx/Plan (1) Respiratory failure with hypercapnia Code(s): J96.92 - RESPIRATORY FAILURE, UNSPECIFIED WITH HYPERCAPNIA Status: Acute (2) Atrial fibrillation Code(s): I48.91 - UNSPECIFIED ATRIAL FIBRILLATION Status: Chronic Comment: s /p multiple ablations and Watchman device (3) Diastolic heart failure Code(s): I50.30 - UNSPECIFIED DIASTOLIC (CONGESTIVE) HEART FAILURE Status: Chronic Qualifiers: Heart failure chronicity: chronic Qualified Code(s): I50.32 - Chronic diastolic (congestive) heart failure (4) Hypertension Code(s): I10 - ESSENTIAL (PRIMARY) HYPERTENSION Status: Chronic Qualifiers: Hypertension type: essential hypertension Qualified Code(s): I10 - Essential (primary) hypertension Comment: well controlled (5) Morbid obesity Code(s): E66.01 - MORBID (SEVERE) OBESITY DUE TO EXCESS CALORIES Status: Chronic (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 Leonard- plan is for a trial of extubation * Acute kidney injury- she has had worsening renal function- will consult Nephrology * AFIB- her heart rate is controlled * Acute on chronic diastolic heart failure- likely from AFIB * HTN- blood pressure is stable.
--- NOTE | 2018-10-17 14:05 | CON ---
DATE OF CONSULTATION: 10/17/2018 CONSULTING PHYSICIAN: Price Flor MD. REASON FOR CONSULT: Acute kidney injury. REASON FOR ADMISSION: Shortness of breath. HISTORY OF PRESENT ILLNESS: A 78-year-old female with past medical history of coronary artery disease, AFib, hypertension, came to the hospital with shortness of breath and is being evaluated and was treated for fluid overload and CHF exacerbation. The patient had hypertensive episode a few days back on 10/14/2018 per the records. She had a creatinine of 0.8 on admission and this morning it was 2.09 with reduced amount of urine. Nephrology was consulted. The patient is currently intubated, not able to give her history. Family was at the bedside. The patient's blood pressure was better today. No fevers or chills reported. No chest pain. PAST MEDICAL HISTORY: Positive for coronary artery disease, atrial fibrillation, hypertension, hypothyroidism, cellulitis. PAST SURGICAL HISTORY: Ablation surgery, orthopedic surgery, right knee surgery, and endometrial surgery. HOME MEDICATIONS: 1. Aspirin. 2. B12. 3. Zetia. 4. Ferrous sulfate. 5. Che. 6. Lasix. 7. Levothyroxine. 8. Metoprolol. 9. Miralax. 10. Potassium chloride. 11. Ranitadine. 12. Ambien. ALLERGIES: ADHESIVE TAPE, AMLODIPINE, LIPITOR, DIGOXIN, MULTAQ, HYDROCHLOROTHIAZIDE, LATEX. SOCIAL HISTORY: Quit smoking 10 years. FAMILY HISTORY: No history of kidney disease. REVIEW OF SYSTEMS: CONSTITUTIONAL: Negative for weight loss or gain, ability to conduct usual activities. SKIN: Negative for rash, itching. EYES: Negative for double vision, pain. ENT/MOUTH: Negative for nose bleeding, neck stiffness, pain, tenderness. CARDIOVASCULAR: Negative for palpitations, dyspnea on exertion, orthopnea. RESPIRATORY: Negative for shortness of breath, wheezing, cough, hemoptysis, fever or night sweats. GASTROINTESTINAL: Negative for poor appetite, abdominal pain, heartburn, nausea, vomiting, constipation, or diarrhea. GENITOURINARY: Negative for urgency, frequency, dysuria, nocturia. MUSCULOSKELETAL: Negative for pain, swelling. NEUROLOGIC/PSYCHIATRIC: Negative for anxiety, depression. ALLERGY/IMMUNOLOGIC: Negative for skin rash, bleeding tendency. PHYSICAL EXAMINATION: GENERAL: Reveals a thin-built female, in no apparent distress. VITAL SIGNS: Temperature 98.2, pulse 92, respiratory rate 14, blood pressure 142/92. HEENT: Intubated. CV: S1, S2 heard. RESPIRATORY: Clear. GI: Abdomen is soft. MUSCULOSKELETAL: 1+ edema. DERMATOLOGIC: No skin rash. NEUROLOGICAL: Intubated. LABORATORY DATA: Hemoglobin is 14.0, potassium is 4.2, BUN is 56, creatinine is 2.09. ASSESSMENT AND PLAN: 1. Acute kidney injury, most likely ischemic acute tubular necrosis. Recommend IV fluids if tolerated, especially after extubation. If she can tolerate, would recommend NS 50 mL/h to 500 mL to 1 L. 2. Hyponatremia. 3. Hypochloremia. 4. Ischemic acute tubular necrosis. 5. Acute hypoxic respiratory failure, currently intubated. 6. Respiratory acidosis from the ABG. 7. Avoid nephrotoxins, renally dose the medications and recommend IV fluids gently if tolerated around 500 mL to 1 L. Monitor urine output closely. Thank you for the consult. Job ID: [id number]
[2018-10-17] MEDS ORDERED: Bacteriostatic Water 30 ML VIAL FS PRN (16:24)
--- NOTE | 2018-10-17 16:35 | PRG ---
DATE OF SERVICE: 10/17/2018 SERVICE: Pulmonary Medicine. INTERVAL HISTORY: The patient is doing okay from respiratory standpoint. This morning, we held her sedation, put her on a CPAP trial. When she was on her CPAP trial, she did just fine. That being said, she drifted off to sleep, and stopped breathing. As such, we had to put her back on mechanical ventilation. We are waiting for some of the sedating medications to come out of her system. She denies any current fevers or chills. There are no overnight events. PHYSICAL EXAMINATION: VITAL SIGNS: Afebrile currently, pulse 87, blood pressure 122/65, respirations 19, saturation 94% on 40% FiO2 and a PEEP of 5. GENERAL: The patient is intubated and sedated. HEENT: Normocephalic and atraumatic. Sclerae white. Conjunctivae pink. Oral mucosa is moist without lesions. LUNGS: Decent air entry. There is a prolonged expiratory phase which is much improved. She is moving better air. Dependent crackles are noted. HEART: Normal rate and regular. ABDOMEN: Soft, nontender, nondistended. Bowel sounds are positive. MUSCULOSKELETAL: No cyanosis or clubbing. No pitting in the bilateral lower extremities. NEUROLOGIC: Grossly nonfocal. LABORATORY DATA: WBC 9.2, hemoglobin 14.0, platelets 138,000. Creatinine 2.09, gently increasing, and BUN 56. Basic metabolic profile is otherwise unremarkable. Respiratory cultures unremarkable. ASSESSMENT: 1. Acute hypoxic and hypercapnic respiratory failure. 2. Chronic obstructive pulmonary disease with acute exacerbation, suspected. 3. Metabolic encephalopathy, resolved. 4. Pleural effusion. 5. Acute on chronic diastolic heart failure. 6. Atrial fibrillation with rapid ventricular response. 7. Acute kidney injury. DISCUSSION AND PLAN: The patient was doing fine on a breathing trial today. That being said, she is not quite awake enough to extubate. We will give her a long sedation holiday. If she is not awake by this afternoon, we will have to try again tomorrow. Overnight, we will change sedation up to Precedex, stop the propofol and fentanyl. Kidney injury continues to get slightly worse. Be careful with any diuretics. CRITICAL CARE TIME: 30 minutes. Job ID: [id number] MTDD
[2018-10-17] MEDS: Aspirin 81 mg Enteric Coated Tablet PO SCH (20:35)
[2018-10-17] MEDS: Ezetimibe 10 MG TAB PO SCH (20:35)
[2018-10-18] MEDS: Levothyroxine Sodium 100 MCG TAB PO SCH (06:12)
[2018-10-18 06:36] LABS: #Basophils 0.1 thou/uL (0.0-0.2); #Lymphocytes 0.6 thou/uL (1.20-3.40); #Monocytes 0.4 thou/uL (0.11-0.59); #Neutrophils 7.1 thou/uL (1.40-6.50); %Eosinophils 0.1 % (0.0-10.0); %Lymphocytes 6.9 % (21.0-51.0); %Monocytes 5.4 % (0.0-10.0); %Neutrophils 86.6 % (42.0-75.0); Hemoglobin 14.2 g/dL (12.0-16.0); Mean Corpuscular HGB CONC 31.1 g/dL (32.0-36.0); Mean Corpuscular Hemoglobin 29.2 pg (27.0-31.0); Mean Corpuscular Volume 93.8 fL (78.0-98.0); Mean Platelet Volume 7.5 fL (7.4-10.4); Platelet Count 113 thou/uL (130-400); RBC Distribution Width 14.7 % (11.5-14.5); Red Blood Cell (RBC) Count 4.88 mill/uL (4.20-5.40); White Blood Cell (WBC) Count 8.2 thou/uL (4.8-10.8)
[2018-10-18 06:52] LABS: Anion Gap 17 mmol/L (10-20); BUN (Urea Nitrogen) 69 mg/dL (9.8-20.1); Calc. Creatinine Clearance 31 mL/min (70-130); Calcium 8.6 mg/dL (7.8-10.44); Carbon Dioxide 27 mmol/L (23-31); Chloride 91 mmol/L (98-107); Estimated GFR-MDRD 22; Glucose 162 mg/dL (83-110); Magnesium 2.1 mg/dL (1.6-2.6); Phosphorus 5.4 mg/dL (2.3-4.7); Potassium 4.5 mmol/L (3.5-5.1); Sodium 130 mmol/L (136-145)
[2018-10-18] MEDS: Famotidine/PF 20 mg/2ml Vial SLOW IVP SCH (07:57)
[2018-10-18] MEDS: Enoxaparin Sodium 40 MG/0.4 ML SYRINGE SC SCH (07:57)
[2018-10-18] MEDS: Metoprolol Tartrate 25 MG TAB PER TUBE SCH ×2 (07:59→19:53)
[2018-10-18] MEDS: methylPREDNISolone Sod Succ 40 MG VIAL IVP SCH (07:59)
--- NOTE | 2018-10-18 10:26 | PRG ---
DATE OF SERVICE: 10/18/2018 SERVICE: Pulmonary Medicine. INTERVAL HISTORY: The patient is doing really well from respiratory standpoint. This morning, we put her back on a spontaneous breathing trial. At this point, she did not drop in the apneic events. She required a little bit of Precedex overnight to maintain comfort, but nothing else. She denies any current fevers, chills, or overnight events. Nursing reports no events. PHYSICAL EXAMINATION: VITAL SIGNS: Afebrile, pulse 91, blood pressure 117/57, respirations 15, saturation 95% on 2 L nasal cannula. GENERAL: The patient is awake and alert, in no apparent distress. LUNGS: Decent air entry. There is not much of a prolonged expiratory phase any longer. HEART: Normal rate and regular. ABDOMEN: Soft, nontender, nondistended. Bowel sounds are positive. MUSCULOSKELETAL: No cyanosis or clubbing. There is no pitting in the bilateral lower extremities. NEUROLOGIC: Grossly nonfocal. LABORATORY DATA: WBC 8.2, hemoglobin 14.2, platelets 113,000 and gently downtrending. Creatinine 2.19 and arriving at its fozia. BUN 69. Basic metabolic profile is otherwise stable or unremarkable. Phosphorus 5.4, magnesium 2.1. Respiratory cultures unremarkable. IMAGING STUDIES: Chest x-ray demonstrates large right-sided pleural effusion. It appears to be layering. ASSESSMENT: 1. Acute hypoxic respiratory failure. 2. Pleural effusion on the right, enlarging. 3. Chronic obstructive pulmonary disease with acute exacerbation, suspected. 4. Metabolic encephalopathy, resolved. 5. Acute on chronic diastolic heart failure. 6. Atrial fibrillation with rapid ventricular response. 7. Acute kidney injury. DISCUSSION AND PLAN: I am concerned for a more malignant process since the patient has had negative in's and out's over the last couple of days on positive airway pressure and that pleural effusion is actually progressing. We will do a bedside ultrasound. If we see a generous pocket of fluid, thoracentesis will be performed. If not, we will consider doing a CT scan, so we can further delineate whether or not there is an infectious process occurring. Pulmonary Critical Care will follow. We will put her on a spontaneous breathing trial. If she meets criteria, extubation will be performed. CRITICAL CARE TIME: 30 minutes. Job ID: [id number]
--- NOTE | 2018-10-18 10:37 | RAD ---
PORTABLE CHEST: Date: 10/18/18 COMPARISON: 10/14/18 study. HISTORY: Follow-up pleural effusion. FINDINGS: Heart size is enlarged. An atrial appendage stoppage Watchman type device is seen. There is increased opacification of the right base as compared to the prior exam; however, this is an upright film as c ompared to that being a supine film. The difference may just be technique related. Left lung remains clear. IMPRESSION: Cardiomegaly and large right pleural effusion with some associated parenchymal lung change. These lasha nges are probably stable. POS: [facility]
--- NOTE | 2018-10-18 11:28 | PDOC.PN ---
- Subjective Encounter Start Date: 10/18/18 Encounter Start Time: 11:26 Ms. Escobar was seen today in follow-up of acute on chronic diastolic heart failure. She has been extubated. She is a bit confused, and is having trouble formulating the questions she wants to ask. - Objective MAR Reviewed: Yes Vital Signs & Weight: Vital Signs (12 hours) Temp Pulse Resp Pulse Ox 10/18/18 09:13 91 15 95 10/18/18 07:29 94 L 10/18/18 06:52 58 L 10/18/18 04:00 97.6 F 9 L 10/18/18 00:00 17 10/17/18 23:38 75 16 94 L Weight Admit Weight 222 lb 9.6 oz Weight 207 lb 3.752 oz Most Recent Monitor Data Heart Rate from ECG 83 NIBP 126/71 NIBP BP-Mean 89 Respiration from ECG 13 SpO2 96 I&O: 10/17/18 10/18/18 10/19/18 06:59 06:59 06:59 Intake Total 931.1 1488.5 0 Output Total 161 570 155 Balance 770.1 918.5 -155 Result Diagrams: 10/18/18 06:12 10/18/18 06:12 Phys Exam - Physical Examination HEENT: PERRLA Respiratory: wheezing present + occasional wheeze, and rale at the bases, decreased breath sounds at the base Cardiovascular: RRR, no significant murmur, no rub Gastrointestinal: soft, non-tender, no distention, positive bowel sounds Musculoskeletal: pulses present, edema present + bruising in both her upper and lower extremities Dx/Plan (1) Respiratory failure with hypercapnia Code(s): J96.92 - RESPIRATORY FAILURE, UNSPECIFIED WITH HYPERCAPNIA Status: Acute (2) Atrial fibrillation Code(s): I48.91 - UNSPECIFIED ATRIAL FIBRILLATION Status: Chronic Comment: s /p multiple ablations and Watchman device (3) Diastolic heart failure Code(s): I50.30 - UNSPECIFIED DIASTOLIC (CONGESTIVE) HEART FAILURE Status: Chronic Qualifiers: Heart failure chronicity: chronic Qualified Code(s): I50.32 - Chronic diastolic (congestive) heart failure (4) Hypertension Code(s): I10 - ESSENTIAL (PRIMARY) HYPERTENSION Status: Chronic Qualifiers: Hypertension type: essential hypertension Qualified Code(s): I10 - Essential (primary) hypertension Comment: well controlled (5) Morbid obesity Code(s): E66.01 - MORBID (SEVERE) OBESITY DUE TO EXCESS CALORIES Status: Chronic (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 * AFIB- her heart rate is controlled * Acute kidney injury- about the same * HTN- blood pressure is stable * Severe Deconditioning- will start PT/OT as tolerated * Updated the patient's daughter and questions answered.
[2018-10-18 14:13] LABS: BF Color Yellow; BF RBC Count - Manual 4375 /cumm; Body Fluid Source Pleural Fluid; Clarity Hazy (Clear); RBC Background Count 0.007; Tube # EDTA; WBC/NonHematic-Auto 283 /cumm
[2018-10-18 14:19] LABS: Pleural Fluid, Protein 2.2 g/dL
[2018-10-18 15:09] LABS: BF Segmented Neutrophils 19 %; Cell Count Non Hematic 62 %; Lymphocytes 19 %
--- NOTE | 2018-10-18 17:39 | PRG ---
DATE OF SERVICE: 10/18/2018 SUBJECTIVE: The patient was seen and examined at bedside, intubated . OBJECTIVE: GENERAL: This is an elderly female, in no apparent distress. VITAL SIGNS: Temperature 97.6, pulse 85, respiratory rate 18, and blood pressure 122/61. HEENT: Intubated. CARDIOVASCULAR: S1 and S2 heard. RESPIRATORY: Clear. GASTROINTESTINAL: Abdomen is soft. MUSCULOSKELETAL: 1+ edema. DERMATOLOGIC: No skin rash. NEUROLOGIC: Intubated. LABORATORY DATA: Potassium 4.5, BUN is 69, and creatinine is 2.1. ASSESSMENT: 1. Acute kidney injury, ischemic to acute tubular necrosis. 2. Hyponatremia. 3. Hypochloremia. 4. Respiratory acidosis. PLAN: Cr is slightly worse. We will start IV fluids as tolerated. Closely monitor cardiorespiratory status. We will follow. Job ID: [id number] MTDD
[2018-10-18] MEDS: Aspirin 81 mg Enteric Coated Tablet PO SCH (19:53)
[2018-10-18] MEDS: Ezetimibe 10 MG TAB PO SCH (19:54)
--- NOTE | 2018-10-18 21:51 | OP ---
DATE OF PROCEDURE: 10/18/2018 SERVICE: Pulmonary Medicine. PROCEDURE PERFORMED: Right-sided pleural drainage with catheter insertion under ultrasound guidance. CONSENT: The risks and benefits of the procedure were explained to the patient. All questions were answered and alternative options explained. MEDICATIONS USED: Lidocaine 1% without epinephrine, total quantity 8 mL. PREOPERATIVE DIAGNOSES: 1. Acute hypoxic respiratory failure. 2. Pleural effusion. POSTPROCEDURE DIAGNOSES: 1. Acute hypoxic respiratory failure. 2. Pleural effusion. DESCRIPTION OF PROCEDURE: Time-out was performed by the procedure team and patient. The patient was positively identified using name and date of . The procedure site was marked. Vital sign monitoring was accomplished with noninvasive hemodynamic monitoring, pulse oximetry, and telemetry. In the seated position, the right posterior hemithorax was examined using ultrasound probe. The diaphragm and pleural fluid were easily identified. The skin was prepped and draped in sterile fashion and anesthetized with 1% lidocaine without epinephrine. A finder needle was inserted in the pleural space with return of tyesha, minimally opaque fluid. A pleural drainage catheter was then inserted in the same location, a total quantity of 1300 mL of pleural fluid was withdrawn by syringe pump technique. A sample was sent for analysis. Evacuation of fluid was terminated because the fluid stopped coming. At that point, estimated pleural pressures, measured by manometry, was -20 cm of pleural fluid. The intact catheter was withdrawn on exhalation and a sterile dressing was applied. The patient had stable vitals throughout the entire procedure. ESTIMATED BLOOD LOSS: Less than 2 mL. COMPLICATIONS: None. Job ID: [id number]
[2018-10-19 05:03] LABS: #Lymphocytes 0.5 thou/uL (1.20-3.40); #Monocytes 0.7 thou/uL (0.11-0.59); #Neutrophils 8.3 thou/uL (1.40-6.50); %Basophils 0.1 % (0.0-1.0); %Lymphocytes 4.8 % (21.0-51.0); %Monocytes 6.9 % (0.0-10.0); %Neutrophils 88.1 % (42.0-75.0); Hemoglobin 14.3 g/dL (12.0-16.0); Mean Corpuscular HGB CONC 32.7 g/dL (32.0-36.0); Mean Corpuscular Hemoglobin 30.2 pg (27.0-31.0); Mean Corpuscular Volume 92.5 fL (78.0-98.0); Mean Platelet Volume 7.7 fL (7.4-10.4); Platelet Count 94 thou/uL (130-400); RBC Distribution Width 14.6 % (11.5-14.5); Red Blood Cell (RBC) Count 4.72 mill/uL (4.20-5.40); White Blood Cell (WBC) Count 9.4 thou/uL (4.8-10.8)
[2018-10-19 05:18] LABS: Anion Gap 14 mmol/L (10-20); BUN (Urea Nitrogen) 71 mg/dL (9.8-20.1); Calc. Creatinine Clearance 37 mL/min (70-130); Carbon Dioxide 30 mmol/L (23-31); Chloride 93 mmol/L (98-107); Estimated GFR-MDRD 26; Glucose 129 mg/dL (83-110); Magnesium 2.2 mg/dL (1.6-2.6); Potassium 4.3 mmol/L (3.5-5.1); Sodium 133 mmol/L (136-145)
[2018-10-19 05:22] LABS: Phosphorus 4.2 mg/dL (2.3-4.7)
[2018-10-19] MEDS: Levothyroxine Sodium 100 MCG TAB PO SCH (05:40)
[2018-10-19] MEDS: Famotidine/PF 20 mg/2ml Vial SLOW IVP SCH (08:54)
[2018-10-19] MEDS: Metoprolol Tartrate 25 MG TAB PER TUBE SCH (08:55)
[2018-10-19] MEDS: methylPREDNISolone Sod Succ 40 MG VIAL IVP SCH (08:55)
--- NOTE | 2018-10-19 11:31 | PDOC.PN ---
- Subjective Encounter Start Date: 10/19/18 (f/u hyponatremia) Encounter Start Time: 11:30 Subjective: Pt with confusion, c/o feeling depressed at home. -: denies any pain or difficulty with her breathing - Objective Vital Signs & Weight: Vital Signs (12 hours) Temp Pulse Resp Pulse Ox 10/19/18 11:00 97.8 F 10/19/18 07:43 97 10/19/18 07:15 96 10/19/18 07:14 87 20 95 10/19/18 07:00 97.3 F L Weight Admit Weight 222 lb 9.6 oz Weight 207 lb 9.6 oz Most Recent Monitor Data Heart Rate from ECG 89 NIBP 119/65 NIBP BP-Mean 83 Respiration from ECG 28 SpO2 98 I&O: 10/18/18 10/19/18 10/20/18 06:59 06:59 06:59 Intake Total 1488.5 1417 Output Total 570 4555 285 Balance 918.5 -3138 -285 Result Diagrams: 10/19/18 04:19 10/19/18 04:19 EKG Reviewed by me: Yes (sinus 90's) Phys Exam - Physical Examination Constitutional: NAD Respiratory: no wheezing, no rales, no rhonchi Cardiovascular: RRR, no significant murmur Gastrointestinal: soft, non-tender, positive bowel sounds LLE edema/hyperpigmentation and few areas of ulceration left lower leg wound care monitoring. RLE hyperpigmenation and mild edema Deviation from normal: ecchymosis along left upper arm with clear bandage in place Dx/Plan (1) Hyponatremia Code(s): E87.1 - HYPO-OSMOLALITY AND HYPONATREMIA Status: Acute (2) Acute kidney injury Code(s): N17.9 - ACUTE KIDNEY FAILURE, UNSPECIFIED Status: Acute (3) Fracture of left humerus with nonunion Code(s): S42.302K - UNSP FX SHAFT OF HUMERUS, LEFT ARM, SUBS FOR FX W NONUNION Status: Chronic (4) Acute exacerbation of CHF (congestive heart failure) Code(s): I50.9 - HEART FAILURE, UNSPECIFIED Status: Acute Qualifiers: Heart failure type: diastolic Qualified Code(s): I50.33 - Acute on chronic diastolic (congestive) heart failure Comment: Acute on chronic diastolic HF (5) Atrial fibrillation Code(s): I48.91 - UNSPECIFIED ATRIAL FIBRILLATION Status: Chronic (6) Diastolic heart failure Code(s): I50.30 - UNSPECIFIED DIASTOLIC (CONGESTIVE) HEART FAILURE Status: Chronic Qualifiers: Heart failure chronicity: chronic Qualified Code(s): I50.32 - Chronic diastolic (congestive) heart failure (7) Morbid obesity Code(s): E66.01 - MORBID (SEVERE) OBESITY DUE TO EXCESS CALORIES Status: Chronic - Plan * Palliative care consult to assist with support for patient - encephalopathy secondary to hospitalization/medications and anticipate this will improve with time * * appreciate multiple consultants care * Cardiology * Pulmonology s/p thoracentesis * Nephrology for ATN * dvt prophy - do not think pt will tolerate scd's due to LE edema and wounds. the lovenox was d/c = likely for the procedure yesterday, resume when safer * gi prophy - not indicated * code status - do not see this addressed in the chart, presumed full. Will have conversation as pt's mentation improves.. * reviewed plan of care with patient's daughter, no questions or further needs at end of eval.
[2018-10-19] MEDS ORDERED: Metoprolol Tartrate 25 MG TAB PO SCH ×2 (13:05→13:15)
--- NOTE | 2018-10-19 13:29 | PRG ---
DATE OF SERVICE: 10/19/2018 SERVICE: Pulmonary Medicine. INTERVAL HISTORY: The patient is doing really well from a respiratory standpoint. Breathing comfortably. Denies any current chest pain, fevers, chills, nausea, vomiting, or diarrhea. She is breathing comfortably. There were no significant overnight events. PHYSICAL EXAMINATION: VITAL SIGNS: Afebrile, pulse 88, blood pressure 129/73, respirations 23, saturation 97% on 2 L nasal cannula. GENERAL: The patient is awake and alert, in no apparent distress. LUNGS: Decent air entry. There is improved aeration of the right base. There is a prolonged expiratory phase, but no wheezing or rhonchi are present. Minimal dependent crackles are noted. HEART: Normal rate and regular. ABDOMEN: Soft, nontender, nondistended. Bowel sounds are positive. MUSCULOSKELETAL: No cyanosis or clubbing. There is diffuse 1 to 2+ pitting throughout. : Roca catheter is in place. NEUROLOGIC: Grossly nonfocal. LABORATORY DATA: WBC 9.4, hemoglobin 14.3, platelets 94,000 and downtrending. Creatinine 1.88 and downtrending, BUN 71 and stable. Sodium and chloride are both trending upward. Magnesium and phosphorous fall within the normal limits. Body fluid is consistent with a transudate. Microbiology on that fluid is negative to date. Cytology was negative for any malignant cells. ASSESSMENT: 1. Acute hypoxic respiratory failure. 2. Pleural effusion on the right, status post thoracentesis, transudate clearly demonstrated. 3. Acute on chronic diastolic heart failure. 4. Chronic obstructive pulmonary disease with acute exacerbation. 5. Metabolic encephalopathy, resolved. 6. Atrial fibrillation with rapid ventricular rate. 7. Acute kidney injury, improving. DISCUSSION AND PLAN: We will discontinue her IV fluids once again, and allow her to auto-diurese through time. I will place a consultation for Case Management to see if the patient will qualify for rehabilitation facility. Diet will be advanced. If she remains stable overnight, she can be considered for transition to the medical unit. Job ID: [id number]
--- NOTE | 2018-10-19 14:27 | PRG ---
DATE OF SERVICE: 10/19/2018 SUBJECTIVE: A 78-year-old lady being seen for acute kidney injury. The patient denies any nausea, vomiting, or chest pain. OBJECTIVE: CONSTITUTIONAL: The patient is awake and alert. VITAL SIGNS: Pulse 85, breathing 16, and blood pressure 143/96. GENERAL APPEARANCE AND MENTAL STATUS: Fair. HEAD/NECK: Normocephalic. Atraumatic. EYES: EOMI. No deformity. EARS: Clear. No ulcers. NOSE: Intact. No lesions. MOUTH: Clear. No discharge. THROAT: Clear. No exudate. LUNGS: Clear. No crackles. CARDIAC: S1, S2. No rub. ABDOMEN: Benign. Bowel sounds positive. GENITALIA/RECTUM: Roca absent. BACK/EXTREMITIES: Edema 0+. NEUROLOGICAL: Alert and motor intact. SKIN: LYMPHATICS: LABORATORY DATA: Labs show hemoglobin 14.3. Creatinine 1.8. ASSESSMENT AND PLAN: 1. Acute kidney injury, improved. 2. Hypertension, stable. 3. Anemia, stable. 4. Medication based on GFR appropriate. No indication for dialysis. Job ID: [id number]
[2018-10-19] MEDS: Aspirin 81 mg Enteric Coated Tablet PO SCH (20:36)
[2018-10-19] MEDS: Ezetimibe 10 MG TAB PO SCH (20:36)
[2018-10-19] MEDS: Metoprolol Tartrate 25 MG TAB PO SCH (21:00)
[2018-10-20 04:59] LABS: #Lymphocytes 0.7 thou/uL (1.20-3.40); #Monocytes 0.9 thou/uL (0.11-0.59); #Neutrophils 9.1 thou/uL (1.40-6.50); %Lymphocytes 6.1 % (21.0-51.0); %Monocytes 8.4 % (0.0-10.0); %Neutrophils 85.5 % (42.0-75.0); Hemoglobin 13.7 g/dL (12.0-16.0); Mean Corpuscular Hemoglobin 30.2 pg (27.0-31.0); Mean Corpuscular Volume 94.4 fL (78.0-98.0); Mean Platelet Volume 8.1 fL (7.4-10.4); Platelet Count 89 thou/uL (130-400); RBC Distribution Width 14.4 % (11.5-14.5); Red Blood Cell (RBC) Count 4.55 mill/uL (4.20-5.40); White Blood Cell (WBC) Count 10.7 thou/uL (4.8-10.8)
[2018-10-20 05:17] LABS: Anion Gap 14 mmol/L (10-20); BUN (Urea Nitrogen) 72 mg/dL (9.8-20.1); Calc. Creatinine Clearance 37 mL/min (70-130); Calcium 9.1 mg/dL (7.8-10.44); Carbon Dioxide 31 mmol/L (23-31); Chloride 93 mmol/L (98-107); Estimated GFR-MDRD 27; Glucose 124 mg/dL (83-110); Potassium 4.7 mmol/L (3.5-5.1); Sodium 133 mmol/L (136-145)
[2018-10-20] MEDS: Levothyroxine Sodium 100 MCG TAB PO SCH (06:48)
--- NOTE | 2018-10-20 08:24 | PRG ---
DATE OF SERVICE: 10/20/2018 SUBJECTIVE: This morning, she is weak. She is better. She is less short of breath. OBJECTIVE: VITAL SIGNS: Saturations are 100% on 3 L, pulse 73, respirations 16, blood pressure 110/50. CHEST: Decreased breath sounds without any crackles. CARDIAC: Normal S1, S2. No gallops. ABDOMEN: Soft without any masses. LABORATORY DATA: Creatinine is 1.84, elevated, BUN is 72. White count is normal. ASSESSMENT: 1. Respiratory failure. 2. Renal failure. 3. Severe deconditioning. 4. Diastolic dysfunction. 5. Atrial fibrillation. PLAN: She appears to be improved. She can be transferred to a monitor bed. Continue aggressive PT. Continue neb treatments. Prednisone will follow. Job ID: [id number]
[2018-10-20] MEDS: predniSONE 20 MG TAB PO SCH (08:53)
[2018-10-20] MEDS: Metoprolol Tartrate 25 MG TAB PO SCH ×2 (08:53→20:43)
--- NOTE | 2018-10-20 13:56 | PDOC.PN ---
- Subjective Encounter Start Date: 10/20/18 (f/u hyponatremia) Encounter Start Time: 13:54 Subjective: Pt feeling better today, notes that her legs are weaker than normal. Denie -: any chest pain or difficulty with breathing. Denies n/v -: boss catheter- hematuria today - Objective Vital Signs & Weight: Vital Signs (12 hours) Temp Pulse Resp BP Pulse Ox 10/20/18 12:15 97.8 F 102 H 18 124/59 L 95 10/20/18 08:00 100 10/20/18 07:24 100 10/20/18 07:23 83 17 100 10/20/18 04:00 98.4 F Weight Admit Weight 222 lb 9.6 oz Weight 212 lb 15.465 oz Most Recent Monitor Data Heart Rate from ECG 96 NIBP 111/56 NIBP BP-Mean 74 Respiration from ECG 27 SpO2 100 I&O: 10/19/18 10/20/18 10/21/18 06:59 06:59 06:59 Intake Total 1417 802 365 Output Total 3535 1160 70 Balance -3138 -358 295 Result Diagrams: 10/20/18 04:33 10/20/18 04:33 EKG Reviewed by me: Yes (sinus 80's) Phys Exam - Physical Examination Constitutional: NAD Respiratory: no wheezing, no rales, no rhonchi bandage on back with dried blood Cardiovascular: RRR, no significant murmur Gastrointestinal: soft, non-tender, no distention, positive bowel sounds chronic venous stasis changes of LE - 2 areas of ulceration on RLE hyperpigmentation bilateral Psychiatric: normal affect Dx/Plan (1) Hyponatremia Code(s): E87.1 - HYPO-OSMOLALITY AND HYPONATREMIA Status: Acute (2) Acute kidney injury Code(s): N17.9 - ACUTE KIDNEY FAILURE, UNSPECIFIED Status: Acute (3) Fracture of left humerus with nonunion Code(s): S42.302K - UNSP FX SHAFT OF HUMERUS, LEFT ARM, SUBS FOR FX W NONUNION Status: Chronic (4) Acute exacerbation of CHF (congestive heart failure) Code(s): I50.9 - HEART FAILURE, UNSPECIFIED Status: Acute Qualifiers: Heart failure type: diastolic Qualified Code(s): I50.33 - Acute on chronic diastolic (congestive) heart failure (5) Atrial fibrillation Code(s): I48.91 - UNSPECIFIED ATRIAL FIBRILLATION Status: Chronic (6) Diastolic heart failure Code(s): I50.30 - UNSPECIFIED DIASTOLIC (CONGESTIVE) HEART FAILURE Status: Chronic Qualifiers: Heart failure chronicity: chronic Qualified Code(s): I50.32 - Chronic diastolic (congestive) heart failure (7) Morbid obesity Code(s): E66.01 - MORBID (SEVERE) OBESITY DUE TO EXCESS CALORIES Status: Chronic (8) Hematuria Code(s): R31.9 - HEMATURIA, UNSPECIFIED Status: Acute (9) Thrombocytopenia Code(s): D69.6 - THROMBOCYTOPENIA, UNSPECIFIED Status: Acute - Plan * New issues today - * Hematuria - order ultrasound kidneys as pt is not a candidate for CT with contrast due to renal function * - Urology consult * - check UA * Thrombocytopenia - do not see any culprit medications, aspirin placed on hold. If this continues to decline, will need to consult Hematology * Pt maintains sinus rhythm and rate control - hx of a fib * Appreciate multiple consultants - Nephrology, Pulmonology and Cardiology * * dvt prophy - none now - it was on hold and is now off profile. Given hematuria/thrombocytopenia - not a candidate for pharmacologic prophylaxis. Do not think pt will tolerate scd's given the chronic changes in legs/swelling/and ulcerations on LLE * gi prophy - not indicated * code status - will confirm with patient * * reviewed plan of care wiht patient/daughter, no questions or further needs at end of eval.
--- NOTE | 2018-10-20 14:02 | PRG ---
DATE OF SERVICE: 10/20/2018 SUBJECTIVE: A 78-year-old female is being seen for acute kidney injury. The patient denies any nausea, vomiting, or chest pain. OBJECTIVE: CONSTITUTIONAL: The patient is awake and alert. VITAL SIGNS: Afebrile, pulse 93, breathing 16, blood pressure 111/56. GENERAL APPEARANCE AND MENTAL STATUS: Fair. HEAD/NECK: Normocephalic. Atraumatic. EYES: EOMI. No deformity. EARS: Clear. No ulcers. NOSE: Intact. No lesions. MOUTH: Clear. No discharge. THROAT: Clear. No exudate. LUNGS: Clear. No crackles. CARDIAC: S1, S2. No rub. ABDOMEN: Benign. Bowel sounds positive. GENITALIA/RECTUM: Roca absent. BACK/EXTREMITIES: Edema 0+. NEUROLOGICAL: Alert and motor intact. LABORATORY DATA: Labs reviewed. ASSESSMENT AND RECOMMENDATIONS: 1. Chronic kidney disease, stage IV, stable. 2. Hypertension, stable. 3. Anemia, stable. 4. Acute tubular necrosis, stable. 5. Complex renal cyst. I would recommend further imaging and Urology consultation as an outpatient. Job ID: [id number]
[2018-10-20] MEDS: Sodium Chloride 0.9% 1,000 ML IV SCH (15:06)
[2018-10-20 15:45] LABS: Bacteria/HPF None Seen HPF (None Seen); RBC/HPF GREATER THAN 50-TNTC HPF (0-3)
[2018-10-20 15:48] LABS: Pathc Cast-AUWi Flag 2.68 (0-2.49)
[2018-10-20 15:56] LABS: Clarity Cloudy (Clear); Glucose, Urine (Dipstick) Negative (Negative); Leukocyte Negative (Negative); Nitrite Negative (Negative); Protein, Urine (Dipstick) > or equal to 300 mg/dL (Neg-Trace); Specific Gravity, Urine 1.021 (1.002-1.036); pH, Urine 5.5 (5.0-9.0)
[2018-10-20 15:57] LABS: Bilirubin Negative (Negative); Blood, Urine Large (Negative); Urobilinogen 0.2 mg/dL (0.2-1.0)
[2018-10-20 15:59] LABS: Hyaline Casts/LPF NONE SEEN LPF (0-3 Hyaline)
[2018-10-20 16:00] LABS: Other Casts/LPF None Seen LPF (0-3 Hyaline)
--- NOTE | 2018-10-20 16:12 | ULT ---
Renal ultrasound: 10/20/2018 COMPARISON: None HISTORY: New onset hematuria TECHNIQUE: Multiplanar grayscale sonographic imaging of the kidneys and urinary bladder obtained. FINDINGS: Right pleural effusion noted, incompletely assessed. The majority of the right kidney is ob scured by bowel gas. Only the superior pole could be visualized and appears unremarkable. There is a Roca catheter within a decompressed urinary bladder. The left kidney is poorly assessed secondary to body habitus and bowel gas. Left kidney measures appr oximately 9.9 cm craniocaudal dimension and demonstrates no hydronephrosis. Trace ascites seen within the abdomen/pelvis. IMPRESSION: Limited examination as detailed above. Trace ascites. Incompletely imaged right pleural e ffusion.
[2018-10-20] MEDS: Ezetimibe 10 MG TAB PO SCH (20:43)
--- NOTE | 2018-10-21 00:06 | CON ---
DATE OF CONSULTATION: 10/20/2018 REASON FOR CONSULTATION: Gross hematuria. HISTORY OF PRESENT ILLNESS: Ms. Escobar is a 78-year-old female admitted to the hospital on 10/12/2018 for exacerbation of CHF. She was admitted from the emergency room into the ICU. She required intubation on an emergent basis. She has since been extubated and transferred from the ICU to the medical floor. She has had a Roca catheter in place for several days and today several days after admission, she was noted to have gross hematuria. There is no noted gross hematuria prior to this date. She denies any prior urologic history. She denies any dysuria, although she states she can feel the catheter, it is not painful. She denies any prior history of stone disease. PAST MEDICAL HISTORY: Coronary artery disease, atrial fibrillation, hypertension, and chronic lower extremity cellulitis. PAST SURGICAL HISTORY: Orthopedic surgery, right knee replacement, ablation x5. SOCIAL HISTORY: She is an ex-smoker, having quit approximately 10 years ago. ALLERGIES: INCLUDE AMLODIPINE, LIPITOR, DIGOXIN, MULTAQ, HYDROCHLOROTHIAZIDE, LASIX, AND ADHESIVE TAPE. MEDICATIONS: Prior to admission include; 1. Aspirin. 2. Vitamins. 3. Che. 4. Lasix 40 mg daily. 5. Levothyroxine. 6. Metoprolol. 7. MiraLAX. 8. Potassium chloride. 9. Ranitidine. 10. Ambien. 11. Possibly she may have been on some antibiotic therapy for lower extremity cellulitis. REVIEW OF SYSTEMS: GENERAL: The patient states she is overall feeling better since admission. RESPIRATORY: Breathing is improved since admission. CARDIOVASCULAR: Denies any chest pain. GASTROINTESTINAL: Denies chronic constipation or diarrhea. NEUROLOGIC: No history of stroke. All systems reviewed are negative unless otherwise mentioned here in the HPI. PHYSICAL EXAMINATION: GENERAL: She is awake and alert. She is on an O2 mask at the current time, but breathing comfortably. VITAL SIGNS: Most recent vital signs; temperature 97.4, pulse 75, O2 saturation 95% on oxygen, blood pressure 119/59. HEENT: Normocephalic. CHEST: Clear to auscultation. CARDIOVASCULAR: No murmurs auscultated. ABDOMEN: Soft, nontender. No palpable masses. Liver and spleen not palpable. EXTREMITIES: Severe bilateral edema. Roca catheter is present. There is some mild hematuria noted, although the urine in the tubing appears yellow. IMPRESSION: Gross hematuria that began several days after Roca catheter placement. It may be a result of trauma during transfer from the ICU to the floor. She has no prior urologic history. Denies stone disease. Denies chronic urinary tract infection. Denies any history of hematuria in the past. Recent urinalysis does not demonstrate any bacteria, although urinary tract infection could be another source for the hematuria. RECOMMENDATIONS: 1. Urine culture. 2. Hydration. 3. She will eventually need cystoscopy if the hematuria does not clear spontaneously and the culture is negative. Job ID: [id number]
[2018-10-21 05:23] LABS: #Lymphocytes 0.7 thou/uL (1.20-3.40); #Neutrophils 9.2 thou/uL (1.40-6.50); %Eosinophils 0.1 % (0.0-10.0); %Lymphocytes 6.2 % (21.0-51.0); %Monocytes 8.8 % (0.0-10.0); Hemoglobin 13.1 g/dL (12.0-16.0); Mean Corpuscular HGB CONC 32.2 g/dL (32.0-36.0); Mean Corpuscular Hemoglobin 30.5 pg (27.0-31.0); Mean Corpuscular Volume 94.7 fL (78.0-98.0); Mean Platelet Volume 8.5 fL (7.4-10.4); Platelet Count 81 thou/uL (130-400); RBC Distribution Width 14.3 % (11.5-14.5); White Blood Cell (WBC) Count 10.8 thou/uL (4.8-10.8)
[2018-10-21] MEDS: Levothyroxine Sodium 100 MCG TAB PO SCH (05:31)
[2018-10-21 05:36] LABS: Anion Gap 12 mmol/L (10-20); BUN (Urea Nitrogen) 72 mg/dL (9.8-20.1); Calc. Creatinine Clearance 49 mL/min (70-130); Calcium 9.5 mg/dL (7.8-10.44); Carbon Dioxide 34 mmol/L (23-31); Chloride 95 mmol/L (98-107); Estimated GFR-MDRD 33; Glucose 133 mg/dL (83-110); Potassium 4.8 mmol/L (3.5-5.1); Sodium 136 mmol/L (136-145)
[2018-10-21] MEDS: Metoprolol Tartrate 25 MG TAB PO SCH ×2 (08:43→20:45)
[2018-10-21] MEDS: predniSONE 20 MG TAB PO SCH (08:43)
--- NOTE | 2018-10-21 12:58 | PRG ---
DATE OF SERVICE: 10/21/2018 SUBJECTIVE: This is a 78-year-old female being seen for acute kidney injury. The patient denies nausea, vomiting, or chest pain. OBJECTIVE: CONSTITUTIONAL: The patient is awake and alert. VITAL SIGNS: Afebrile, pulse 81, breathing 16, and blood pressure 141/65. GENERAL APPEARANCE AND MENTAL STATUS: Fair. HEAD/NECK: Normocephalic. Atraumatic. EYES: EOMI. No deformity. EARS: Clear. No ulcers. NOSE: Intact. No lesions. MOUTH: Clear. No discharge. THROAT: Clear. No exudate. LUNGS: Clear. No crackles. CARDIAC: S1, S2. No rub. ABDOMEN: Benign. Bowel sounds positive. GENITALIA/RECTUM: Roca absent. BACK/EXTREMITIES: Edema 0+. NEUROLOGICAL: Alert and motor intact. SKIN: LYMPHATICS: LABORATORY DATA: Labs reviewed. ASSESSMENT AND PLAN: Chronic kidney disease stage 3, stable. Hypertension, stable. Anemia, stable. I will sign off on this patient. Please reconsult as needed. Job ID: [id number]
--- NOTE | 2018-10-21 13:04 | PDOC.PN ---
- Subjective Encounter Start Date: 10/21/18 (f/u hematuria) Encounter Start Time: 13:02 Subjective: Pt reports she slept well last night. Denies any concerns today. Does -: note weakness with working with physical therapy. -: Episode of a fib this morning lasting about an hour - Objective Vital Signs & Weight: Vital Signs (12 hours) Temp Pulse Resp BP Pulse Ox 10/21/18 12:00 98.6 F 81 18 147/65 H 97 10/21/18 08:00 98 10/21/18 07:56 97.7 F 81 18 141/67 H 98 10/21/18 06:58 70 14 10/21/18 03:20 97.9 F 82 18 136/59 L 96 Weight Admit Weight 222 lb 9.6 oz Weight 225 lb 12.8 oz Most Recent Monitor Data Heart Rate from ECG 96 NIBP 111/56 NIBP BP-Mean 74 Respiration from ECG 27 SpO2 100 I&O: 10/20/18 10/21/18 10/22/18 06:59 06:59 06:59 Intake Total 802 805 Output Total 1160 420 Balance -358 385 Result Diagrams: 10/21/18 04:56 10/21/18 04:56 EKG Reviewed by me: Yes (sinus 70-80's, brief SVT 14 beats to 150s, episode of afib to 120's x 1 hr) Phys Exam - Physical Examination Constitutional: NAD Respiratory: no wheezing, no rales, no rhonchi Cardiovascular: RRR, no significant murmur Gastrointestinal: soft, non-tender, no distention, positive bowel sounds bilateral pitting edema and hyperpigmentation of LE left > right and associated with ulceration x 2. Neurological: non-focal Deviation from normal: ecchymosis along bilateral arms - stable Dx/Plan (1) Hyponatremia Code(s): E87.1 - HYPO-OSMOLALITY AND HYPONATREMIA Status: Acute (2) Acute kidney injury Code(s): N17.9 - ACUTE KIDNEY FAILURE, UNSPECIFIED Status: Acute (3) Fracture of left humerus with nonunion Code(s): S42.302K - UNSP FX SHAFT OF HUMERUS, LEFT ARM, SUBS FOR FX W NONUNION Status: Chronic (4) Acute exacerbation of CHF (congestive heart failure) Code(s): I50.9 - HEART FAILURE, UNSPECIFIED Status: Acute Qualifiers: Heart failure type: diastolic Qualified Code(s): I50.33 - Acute on chronic diastolic (congestive) heart failure (5) Atrial fibrillation Code(s): I48.91 - UNSPECIFIED ATRIAL FIBRILLATION Status: Chronic (6) Diastolic heart failure Code(s): I50.30 - UNSPECIFIED DIASTOLIC (CONGESTIVE) HEART FAILURE Status: Chronic Qualifiers: Heart failure chronicity: chronic Qualified Code(s): I50.32 - Chronic diastolic (congestive) heart failure (7) Morbid obesity Code(s): E66.01 - MORBID (SEVERE) OBESITY DUE TO EXCESS CALORIES Status: Chronic (8) Hematuria Code(s): R31.9 - HEMATURIA, UNSPECIFIED Status: Acute (9) Thrombocytopenia Code(s): D69.6 - THROMBOCYTOPENIA, UNSPECIFIED Status: Acute - Plan * * Pt with multiple issues during this hospitalization- * Hematuria - improved todya - appreciate Urology consult and recommendation to monitor for infection, clearing, and cystoscopy if not resolved. * - will change from boss catheter to pure-wick system * Thrombocytopenia - stable today in the 80's, will consult Hematology. Aspirin held last night. Given atrial fibrillation today and risk of stroke associated with it, the goal is the minimal amount of time holding aspirin. With the hematuria, pt today is not a candidate for full anticoagulation - will need to continue re-evaluating the decision in conjunction with Cardiology * Appreciate multiple consultants - Nephrology (ANGEL and renal function stable), Pulmonology (s/p intubation and thoracentesis of right pleural effusion/removal of 1300 ml fluid) and Cardiology (diastolic HF) * * Continue wound care of left leg ulcerations * * dvt prophy - none now - it was on hold and is now off profile. Given hematuria/thrombocytopenia - not a candidate for pharmacologic prophylaxis. Do not think pt will tolerate scd's given the chronic changes in legs/swelling/and ulcerations on LLE * gi prophy - not indicated * code status - full - reviewed with patient and documented on chart. Pt does not desire prolonged intervention - does desire initial interventions, and if no change she reports her daughter Lynette is clear on her wishes. * * reviewed plan of care with patient, no questions or further needs at end of eval. * pt remains at high risk in current condition
--- NOTE | 2018-10-21 13:04 | PRG ---
DATE OF SERVICE: 10/21/2018 SUBJECTIVE: This morning, she is better and she is less short of breath. OBJECTIVE: VITAL SIGNS: Temperature is 98, pulse 81, respiratory rate 18, and saturations 97 on 2, blood pressure 147/65. CHEST: No wheezing or crackles. CARDIAC: Normal S1 and S2. No gallops. ABDOMEN: Soft. LABORATORY DATA: Creatinine is 1.52. IMPRESSION: 1. Respiratory failure. 2. Pleural effusion. 4. Encephalopathy. PLAN: Await results of pathology. Continue PT and supportive care. Job ID: [id number] MTDD
[2018-10-21] MEDS: Sodium Chloride 0.9% 1,000 ML IV SCH (13:48)
--- NOTE | 2018-10-21 17:56 | PRG ---
DATE OF SERVICE: 10/21/2018 SUBJECTIVE: No new urinary complaints. Roca catheter was removed today. OBJECTIVE: VITAL SIGNS: Temperature 98.6, blood pressure 149/76, pulse 81, O2 saturation 97%. ABDOMEN: Soft, nontender. No palpable masses. EXTREMITIES: Marked edema. No change. DIAGNOSTIC STUDIES: Renal ultrasound, no obvious abnormalities noted, but exam is difficult due to body habitus. Prior ultrasound and CT scan demonstrated small cysts. Urine culture was not obtained, will probably not be useful at this time as she is on antibiotics. IMPRESSION: Ms. Escobar has thrombocytopenia and developed hematuria during her hospital admission. She had no noted hematuria when she had her Roca catheter placed, but then subsequently developed some gross hematuria. The catheter has now been removed. Urine culture has not been obtained and will probably not be helpful at this time as a result of antibiotic therapy. Imaging of the upper urinary tract by ultrasound was not particularly useful because of difficulty visualizing the kidneys as a result of her body habitus. However, on review of prior renal imaging over the last several years, there has never been any abnormality noted. PLAN: Urine for cytology. Job ID: [id number]
--- NOTE | 2018-10-21 19:18 | PDOC.EVN ---
Event Note - Event Note Event Note: Pt having heartburn sx - likely secondary to steroids. Will start PPI and dose daily - reviewed dosing for pantoprazole and no renal dosing needed.
[2018-10-21] MEDS: Ezetimibe 10 MG TAB PO SCH (20:45)
[2018-10-22] MEDS: Levothyroxine Sodium 100 MCG TAB PO SCH (05:24)
[2018-10-22 07:18] LABS: #Lymphocytes 0.7 thou/uL (1.20-3.40); #Monocytes 0.8 thou/uL (0.11-0.59); #Neutrophils 7.7 thou/uL (1.40-6.50); %Basophils 0.5 % (0.0-1.0); %Eosinophils 0.1 % (0.0-10.0); %Lymphocytes 7.2 % (21.0-51.0); %Monocytes 8.9 % (0.0-10.0); %Neutrophils 83.4 % (42.0-75.0); Hemoglobin 13.3 g/dL (12.0-16.0); Mean Corpuscular Hemoglobin 30.5 pg (27.0-31.0); Mean Corpuscular Volume 95.5 fL (78.0-98.0); Mean Platelet Volume 8.6 fL (7.4-10.4); Platelet Count 78 thou/uL (130-400); RBC Distribution Width 14.3 % (11.5-14.5); Red Blood Cell (RBC) Count 4.36 mill/uL (4.20-5.40); White Blood Cell (WBC) Count 9.2 thou/uL (4.8-10.8)
[2018-10-22 07:24] LABS: Anion Gap 11 mmol/L (10-20); BUN (Urea Nitrogen) 64 mg/dL (9.8-20.1); Calc. Creatinine Clearance 59 mL/min (70-130); Carbon Dioxide 33 mmol/L (23-31); Chloride 96 mmol/L (98-107); Estimated GFR-MDRD 41; Glucose 131 mg/dL (83-110); Potassium 4.9 mmol/L (3.5-5.1); Sodium 135 mmol/L (136-145)
[2018-10-22 07:26] LABS: Fibrinogen 218 mg/dL (253-463); INR-International Normal Ratio 1.3; PTT 30.9 SEC (22.9-36.1); Prothrombin Time 15.8 SEC (12.0-14.7)
[2018-10-22 07:27] LABS: D-Dimer Test 1.14 *mcg/mL (0.27-0.43)
--- NOTE | 2018-10-22 07:57 | PDOC.PN ---
- Subjective Encounter Start Date: 10/22/18 Encounter Start Time: 10:00 Subjective: Patient reports improved SOB. No pain. Some nasal congestion from -: the oxygen. - Objective Resuscitation Status - Order Detail: 10/21/18 13:14 Resuscitation Status Routine Resuscitation Status: FULL: Full Resuscitation Discussed with: discussed with patient today (10/21) that with any change she does Additional comments: desire initial resuscitation efforts and if there is no improvement she does not desire to be on prolonged life support. We discussed the DNAR she reports having - and how it is a request for NO intervention - and compared to our conversation now, specifically covering how she was intubated earlier in this hospitalization and recovered. She desires the same thing and states he daughter Lynette is clear on her wishes. Full code placed on chart. MAR Reviewed: Yes Vital Signs & Weight: Vital Signs (12 hours) Temp Pulse Resp BP Pulse Ox 10/22/18 06:57 110 H 14 10/22/18 03:37 97.8 F 101 H 19 121/67 95 10/21/18 23:42 95 10/21/18 20:43 97.6 F 100 19 128/69 96 Weight Admit Weight 222 lb 9.6 oz Weight 225 lb 5 oz Most Recent Monitor Data Heart Rate from ECG 96 NIBP 111/56 NIBP BP-Mean 74 Respiration from ECG 27 SpO2 100 I&O: 10/21/18 10/22/18 10/23/18 06:59 06:59 06:59 Intake Total 805 1150 Output Total 420 750 Balance 385 400 Result Diagrams: 10/22/18 06:38 10/22/18 06:38 Phys Exam - Physical Examination Constitutional: NAD HEENT: moist MMs Respiratory: no wheezing, no rales, no rhonchi decreased breath sounds right side up to mid lung Cardiovascular: RRR, no significant murmur Gastrointestinal: soft, positive bowel sounds left knee with dressing in place, minimal edema bilaterally Neurological: non-focal, moves all 4 limbs Psychiatric: normal affect, A&O x 3 Dx/Plan (1) Acute respiratory failure with hypoxia Code(s): J96.01 - ACUTE RESPIRATORY FAILURE WITH HYPOXIA Status: Acute Comment: S/P intubation and thoracentesis of right PE 1300 mL, now sating well on 1.5-2L via NC (2) Acute exacerbation of CHF (congestive heart failure) Code(s): I50.9 - HEART FAILURE, UNSPECIFIED Status: Acute Qualifiers: Heart failure type: diastolic Qualified Code(s): I50.33 - Acute on chronic diastolic (congestive) heart failure Comment: EF 50-55%, improved (3) Hematuria Code(s): R31.9 - HEMATURIA, UNSPECIFIED Status: Acute Comment: boss d/c'd, using WICK catheter, Dr. Kasper following, no anemia (4) Thrombocytopenia Code(s): D69.6 - THROMBOCYTOPENIA, UNSPECIFIED Status: Acute Comment: monitoring, ASA held, no heparin products (5) Paroxysmal atrial fibrillation Code(s): I48.0 - PAROXYSMAL ATRIAL FIBRILLATION Status: Chronic Comment: cannot anticoagulate due to thrombocytopenia and hematuria (6) Acute kidney injury Code(s): N17.9 - ACUTE KIDNEY FAILURE, UNSPECIFIED Status: Acute Comment: improved, nephrology signed off (7) Fracture of left humerus with nonunion Code(s): S42.302K - UNSP FX SHAFT OF HUMERUS, LEFT ARM, SUBS FOR FX W NONUNION Status: Chronic (8) Morbid obesity Code(s): E66.01 - MORBID (SEVERE) OBESITY DUE TO EXCESS CALORIES Status: Chronic - Plan cont current plan of care, PT/OT plan for SNF/rehab on discharge * . - Discharge Day Encounter end time: 10:10
[2018-10-22 07:58] LABS: FSP-Qualitative ABNORMAL (Normal)
[2018-10-22 08:04] LABS: FSP-Semiquantitative >=5 & <20 mcg/mL (Less than 5)
[2018-10-22 08:05] LABS: Platelet Count 80 thou/uL (130-400)
[2018-10-22] MEDS: Metoprolol Tartrate 25 MG TAB PO SCH ×2 (08:51→20:54)
[2018-10-22] MEDS: predniSONE 20 MG TAB PO SCH (08:51)
--- NOTE | 2018-10-22 11:07 | PRG ---
DATE OF SERVICE: 10/22/2018 SERVICE: Pulmonary Medicine. INTERVAL HISTORY: The patient is doing really well from respiratory standpoint. Breathing comfortably. She remains on 2 L nasal cannula. She has yet to be too terribly mobile. PHYSICAL EXAMINATION: VITAL SIGNS: Afebrile. Pulse 101, blood pressure 121/67, respirations 19, saturation 95% on 2 L nasal cannula. GENERAL: The patient is awake and alert, in no apparent distress. LUNGS: Decent air entry. There is no prolonged expiratory phase. Extensive crackles are noted. No wheezing. HEART: Normal rate and regular. ABDOMEN: Soft, nontender, nondistended. Bowel sounds are positive. MUSCULOSKELETAL: No cyanosis or clubbing. There is 2+ pitting in the bilateral lower extremities. NEUROLOGIC: Grossly nonfocal. LABORATORY DATA: WBC 9.2, hemoglobin 13.3, platelets 78,000 and roughly stable. INR 1.3. Creatinine 1.26, BUN 64. Basic metabolic profile is otherwise unremarkable. AFB smear and culture are negative. Body fluid culture is negative. Respiratory culture is negative. ASSESSMENT: 1. Acute hypoxic respiratory failure, improving. 2. Pleural effusion on the right, status post thoracentesis demonstrating transudate. 3. Acute on chronic diastolic heart failure. 4. Chronic obstructive pulmonary disease with acute exacerbation. 5. Metabolic encephalopathy, resolved. 6. Atrial fibrillation with rapid ventricular response. 7. Acute kidney injury on chronic kidney disease 3. DISCUSSION AND PLAN: At this point, the patient is diuresed very nicely. We will continue our steroids, nebulized medications, and antibiotics. We will continue our mobilization efforts. At this point, from a respiratory standpoint, the patient is stable for transition out of the hospital , but we will need to clarify whether or not she has lung disease in the outpatient setting. Critical Care will continue to follow, intermittently while the patient remains inhouse. Job ID: [id number] [facility]
[2018-10-22 13:36] VITALS: BMI 42.5
[2018-10-22] MEDS: Ezetimibe 10 MG TAB PO SCH (20:54)
[2018-10-22] MEDS: Sodium Chloride 0.9% 1,000 ML IV SCH (20:56)
--- NOTE | 2018-10-22 21:09 | CON ---
DATE OF CONSULTATION: REASON FOR CONSULT: Thrombocytopenia. HISTORY OF PRESENT ILLNESS: Ms. Escobar is a 78-year-old female with past medical history of cellulitis and long-term antibiotic use, who presented to the emergency room on October 12 with shortness of breath. She was diagnosed with acute hypoxic respiratory failure and was intubated. She had [id number] diastolic heart failure and was diuresed with Lasix for several days. On admission, her CBC showed a white count of 5.7, hemoglobin of 14.5, and a platelet count of a 198,000. On day #7 of admission, her platelet dropped to 113 and has trended downward to a low of 78,000. The patient has no history of thrombocytopenia that she is aware of. She has received no heparin products. She does state that she has had cellulitis for the last 5 months and has been on at least 15 different antibiotics. She has been managed by her primary care and by Dr. Colunga. She also has a history of atrial fibrillation and was receiving aspirin during this admission. She began to have hematuria and was evaluated by Urology. Her aspirin has been held for the past several days. She denies any complaints at this time. Her shortness of breath is significantly improved. We are seeing the patient regarding her thrombocytopenia. PAST MEDICAL HISTORY: 1. Cellulitis with Pseudomonas. 2. Coronary artery disease. 3. Atrial fibrillation. 4. Hypothyroidism. 5. Hypertension. 6. Diastolic congestive heart failure. 7. Pleural effusion. PAST SURGICAL HISTORY: 1. Ablation x5. 2. Orthopedic surgery. 3. Right knee replacement. ALLERGIES: TAPE, AMLODIPINE, , ATORVASTATIN, DIGOXIN, MULTAQ, HYDROCHLOROTHIAZIDE. CURRENT MEDICATIONS: 1. Zetia 10 mg daily. 2. Ferrous sulfate daily. 3. Lasix 40 mg daily. 4. Synthroid daily. 5. Claritin daily. 6. Lopressor b.i.d. 7. Protonix daily. 8. MiraLAX daily. FAMILY HISTORY: Noncontributory. SOCIAL HISTORY: Former smoker. Lives alone. REVIEW OF SYSTEMS: CONSTITUTIONAL: No fever, chills, or night sweats. EYES: No blurred or double vision. ENT: No pain, hoarseness, sore throat, dysphagia. CARDIOVASCULAR: No chest pain, palpitations, or syncope. RESPIRATORY: Positive for shortness of breath and cough. GI: No nausea, vomiting, diarrhea, constipation, or abdominal pain. : No dysuria. Positive hematuria. MUSCULOSKELETAL: Positive for back pain. SKIN: Positive for rash. NEUROLOGICAL: Positive for weakness. No headache, numbness, tingling, or seizure. PSYCH: No anxiety or depression. PHYSICAL EXAMINATION: VITAL SIGNS: Temperature is 97.8, pulse is 100, respiratory rate 14, blood pressure is 129/61. She is 95% on 2 L. GENERAL: This is a chronically ill female in no acute distress. HEENT: Normocephalic, atraumatic. Pupils are equal and reactive to light. NECK: Supple. CARDIOVASCULAR: Regular rate and rhythm. LUNGS: Diminished anterior, O2 is on. EXTREMITIES: She has purpura down her upper extremities with skin avulsions. Lower extremities with chronic skin changes from cellulitis and ulcers. NEUROLOGICAL: Nonfocal. PSYCHIATRIC: The patient is alert and oriented. PERTINENT LABS AND X-RAYS: Current WBCs are 9.2, hemoglobin 13.3, hematocrit 41.7, platelet count is 80,000, 83% neutrophils, 7% lymphocytes. PT is 15.8, INR is 1.3, PTT is 30.9, fibrinogen is 218. Sodium is 135, potassium 4.9, chloride 96, CO2 is 33, BUN is 64, creatinine 1.26, calcium is 9.0, bilirubin is 3.2, AST is 42, ALT is 13, alkaline phosphatase is 128. BNP is 647. Serum total protein is 8, albumin 3.7, globulin 4.3. ASSESSMENT: 1. Mild thrombocytopenia. 2. Acute hypoxic respiratory failure. 3. Diastolic congestive heart failure. 4. Pleural effusion status post thoracentesis. 5. Hematuria. 6. Chronic hip infection and cellulitis. 7. Chronic elevated transaminases. DISCUSSION: Case was discussed with Dr. Ferrari. There is no evidence of heparin-induced thrombocytopenia. We feel this drop in platelet count is likely consumptive from her acute and chronic illnesses. Her platelet count has stabilized. We would just recommend following platelets at this time. No further intervention required. Thank you for the consult. Job ID: [id number] MTDD
[2018-10-23] MEDS: Levothyroxine Sodium 100 MCG TAB PO SCH (05:41)
[2018-10-23 07:01] LABS: #Lymphocytes 0.6 thou/uL (1.20-3.40); #Monocytes 0.6 thou/uL (0.11-0.59); #Neutrophils 7.3 thou/uL (1.40-6.50); %Basophils 0.2 % (0.0-1.0); %Eosinophils 0.1 % (0.0-10.0); %Lymphocytes 6.5 % (21.0-51.0); %Monocytes 6.6 % (0.0-10.0); %Neutrophils 86.6 % (42.0-75.0); Hemoglobin 14.9 g/dL (12.0-16.0); Mean Corpuscular HGB CONC 31.1 g/dL (32.0-36.0); Mean Corpuscular Hemoglobin 30.4 pg (27.0-31.0); Mean Corpuscular Volume 97.8 fL (78.0-98.0); Mean Platelet Volume 8.6 fL (7.4-10.4); Platelet Count 114 thou/uL (130-400); RBC Distribution Width 14.6 % (11.5-14.5); Red Blood Cell (RBC) Count 4.91 mill/uL (4.20-5.40); White Blood Cell (WBC) Count 8.4 thou/uL (4.8-10.8)
[2018-10-23 07:20] LABS: Anion Gap 15 mmol/L (10-20); BUN (Urea Nitrogen) 70 mg/dL (9.8-20.1); Calc. Creatinine Clearance 63 mL/min (70-130); Calcium 9.4 mg/dL (7.8-10.44); Carbon Dioxide 28 mmol/L (23-31); Chloride 98 mmol/L (98-107); Estimated GFR-MDRD 44; Glucose 133 mg/dL (83-110); Potassium 5.8 mmol/L (3.5-5.1); Sodium 135 mmol/L (136-145)
--- NOTE | 2018-10-23 07:54 | PDOC.PN ---
- Subjective Encounter Start Date: 10/23/18 Encounter Start Time: 13:20 Subjective: Patient still quite SOB with exertion, requiring multiple assistants -: to transfer from chair to bed. No fever or other complaints. - Objective Resuscitation Status - Order Detail: 10/21/18 13:14 Resuscitation Status Routine Resuscitation Status: FULL: Full Resuscitation Discussed with: discussed with patient today (10/21) that with any change she does Additional comments: desire initial resuscitation efforts and if there is no improvement she does not desire to be on prolonged life support. We discussed the DNAR she reports having - and how it is a request for NO intervention - and compared to our conversation now, specifically covering how she was intubated earlier in this hospitalization and recovered. She desires the same thing and states he daughter Lynette is clear on her wishes. Full code placed on chart. MAR Reviewed: Yes Vital Signs & Weight: Vital Signs (12 hours) Temp Pulse Resp BP Pulse Ox 10/23/18 07:10 94 L 10/23/18 07:09 63 16 94 L 10/23/18 03:49 97.7 F 65 17 111/64 95 10/23/18 00:33 65 18 95 10/23/18 00:00 98.2 F 68 18 130/64 95 10/22/18 20:48 97.3 F L 70 18 141/68 H 93 L 10/22/18 20:25 68 18 92 L Weight Admit Weight 222 lb 9.6 oz Weight 225 lb 9 oz Most Recent Monitor Data Heart Rate from ECG 96 NIBP 111/56 NIBP BP-Mean 74 Respiration from ECG 27 SpO2 100 I&O: 10/22/18 10/23/18 10/24/18 06:59 06:59 06:59 Intake Total 1150 1010 Output Total 750 960 Balance 400 50 Result Diagrams: 10/23/18 06:35 10/23/18 08:55 Phys Exam - Physical Examination Constitutional: NAD HEENT: moist MMs Respiratory: no wheezing, no rales, no rhonchi decreased breath sounds bottom 2/3 of right lung Cardiovascular: RRR Gastrointestinal: soft, positive bowel sounds Neurological: non-focal, moves all 4 limbs Psychiatric: normal affect, A&O x 3 Dx/Plan (1) Acute respiratory failure with hypoxia Code(s): J96.01 - ACUTE RESPIRATORY FAILURE WITH HYPOXIA Status: Acute Comment: S/P intubation and thoracentesis of right PE 1300 mL, now sating well on 1.5-2L via NC (2) Acute exacerbation of CHF (congestive heart failure) Code(s): I50.9 - HEART FAILURE, UNSPECIFIED Status: Acute Qualifiers: Heart failure type: diastolic Qualified Code(s): I50.33 - Acute on chronic diastolic (congestive) heart failure Comment: EF 50-55%, improved, changed to oral Furosemide (3) Hematuria Code(s): R31.9 - HEMATURIA, UNSPECIFIED Status: Resolved Comment: boss d/c' d, using WICK catheter, Dr. 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 - Discharge Day Encounter end time: 13:30
[2018-10-23 09:28] LABS: Potassium 5.6 mmol/L (3.5-5.1)
[2018-10-23] MEDS: Metoprolol Tartrate 25 MG TAB PO SCH ×2 (09:45→20:10)
[2018-10-23] MEDS: Furosemide 40 MG TAB PO SCH (09:46)
[2018-10-23] MEDS: Aspirin 81 mg Enteric Coated Tablet PO SCH (20:09)
[2018-10-23] MEDS: Ezetimibe 10 MG TAB PO SCH (20:10)
[2018-10-24] MEDS: Levothyroxine Sodium 100 MCG TAB PO SCH (05:32)
[2018-10-24 06:38] LABS: #Lymphocytes 0.6 thou/uL (1.20-3.40); #Monocytes 1.4 thou/uL (0.11-0.59); %Eosinophils 0.3 % (0.0-10.0); %Lymphocytes 5.7 % (21.0-51.0); %Monocytes 13.6 % (0.0-10.0); %Neutrophils 80.4 % (42.0-75.0); Hemoglobin 15.3 g/dL (12.0-16.0); Mean Corpuscular HGB CONC 30.2 g/dL (32.0-36.0); Mean Corpuscular Hemoglobin 29.8 pg (27.0-31.0); Mean Corpuscular Volume 98.9 fL (78.0-98.0); Mean Platelet Volume 8.8 fL (7.4-10.4); Platelet Count 116 thou/uL (130-400); RBC Distribution Width 14.5 % (11.5-14.5); Red Blood Cell (RBC) Count 5.14 mill/uL (4.20-5.40)
[2018-10-24 07:38] LABS: Calcium 9.8 mg/dL (7.8-10.44); Chloride 96 mmol/L (98-107); Potassium 5.7 mmol/L (3.5-5.1); Sodium 137 mmol/L (136-145)
[2018-10-24 07:39] LABS: Glucose 103 mg/dL (83-110)
[2018-10-24 07:40] LABS: Anion Gap 16 mmol/L (10-20); Carbon Dioxide 31 mmol/L (23-31)
[2018-10-24 07:42] LABS: Calc. Creatinine Clearance 54 mL/min (70-130); Estimated GFR-MDRD 37
[2018-10-24 07:43] LABS: BUN (Urea Nitrogen) 77 mg/dL (9.8-20.1)
--- NOTE | 2018-10-24 07:52 | PDOC.PN ---
- Subjective Encounter Start Date: 10/24/18 Encounter Start Time: 10:00 Subjective: Patient more groggy today, very slow responses, mildly worse -: SOB. Wound care reports LLE sore draining more clear fluid, tracking 6cm - Objective Resuscitation Status - Order Detail: 10/21/18 13:14 Resuscitation Status Routine Resuscitation Status: FULL: Full Resuscitation Discussed with: discussed with patient today (10/21) that with any change she does Additional comments: desire initial resuscitation efforts and if there is no improvement she does not desire to be on prolonged life support. We discussed the DNAR she reports having - and how it is a request for NO intervention - and compared to our conversation now, specifically covering how she was intubated earlier in this hospitalization and recovered. She desires the same thing and states he daughter Lynette is clear on her wishes. Full code placed on chart. MAR Reviewed: Yes Vital Signs & Weight: Vital Signs (12 hours) Temp Pulse Resp BP Pulse Ox 10/24/18 07:14 66 32 H 91 L 10/24/18 03:21 97.4 F L 93 20 122/61 94 L 10/24/18 00:32 99 18 93 L 10/23/18 20:11 98 10/23/18 19:52 97.1 F L 99 20 111/68 98 Weight Admit Weight 222 lb 9.6 oz Weight 223 lb 4.8 oz Most Recent Monitor Data Heart Rate from ECG 96 NIBP 111/56 NIBP BP-Mean 74 Respiration from ECG 27 SpO2 100 I&O: 10/23/18 10/24/18 10/25/18 06:59 06:59 06:59 Intake Total 1010 880 Output Total 960 750 Balance 50 130 Result Diagrams: 10/24/18 05:42 10/24/18 07:12 Phys Exam - Physical Examination mild increased WOB HEENT: moist MMs decreased BS right lower and mid lung Cardiovascular: RRR Gastrointestinal: soft, positive bowel sounds Musculoskeletal: edema present ulcer to left lateral leg with dressing c/d/i Neurological: non-focal, moves all 4 limbs Psychiatric: normal affect Deviation from normal: slow responses, a bit confused Dx/Plan (1) Acute respiratory failure with hypoxia Code(s): J96.01 - ACUTE RESPIRATORY FAILURE WITH HYPOXIA Status: Acute Comment: S/P intubation and thoracentesis of right PE 1300 mL, now sating well on 1.5-2L via NC, tachypneic this AM. Will repeat CXR, ABG. Will discuss with Dr. Leonard. (2) Acute exacerbation of CHF (congestive heart failure) Code(s): I50.9 - HEART FAILURE, UNSPECIFIED Status: Acute Qualifiers: Heart failure type: diastolic Qualified Code(s): I50.33 - Acute on chronic diastolic (congestive) heart failure Comment: EF 50-55%, improved, changed to oral Furosemide (3) Hematuria Code(s): R31.9 - HEMATURIA, UNSPECIFIED Status: Resolved Comment: boss d/c' d, using WICK catheter, Dr. Kasper following, no anemia, restarting aspirin (4) Thrombocytopenia Code(s): D69.6 - THROMBOCYTOPENIA, UNSPECIFIED Status: Acute Comment: monitoring, no heparin products, ASA restarted (5) Paroxysmal atrial fibrillation Code(s): I48.0 - PAROXYSMAL ATRIAL FIBRILLATION Status: Chronic Comment: cannot anticoagulate due to thrombocytopenia and hematuria (6) Acute kidney injury Code(s): N17.9 - ACUTE KIDNEY FAILURE, UNSPECIFIED Status: Acute Comment: improved, nephrology signed off (7) Fracture of left humerus with nonunion Code(s): S42.302K - UNSP FX SHAFT OF HUMERUS, LEFT ARM, SUBS FOR FX W NONUNION Status: Chronic (8) Morbid obesity Code(s): E66.01 - MORBID (SEVERE) OBESITY DUE TO EXCESS CALORIES Status: Chronic (9) Hyperkalemia Code(s): E87.5 - HYPERKALEMIA Status: Acute Comment: uncertain eitiology, remains high after dose of Kayexelate yest along with Furosemide, will redose Kayexelate and ask Nephrology to see again - Plan cont current plan of care, PT/OT Patient seems to be declining again. May need repeat thoracentesis vs. -: more IV Lasix? * . - Discharge Day Encounter end time: 10:30
[2018-10-24] MEDS: Furosemide 40 MG TAB PO SCH (08:29)
[2018-10-24] MEDS: Metoprolol Tartrate 25 MG TAB PO SCH (08:59)
--- NOTE | 2018-10-24 11:12 | RAD ---
XR Chest 1 View Portable HISTORY: Shortness of breath COMPARISON: 10/18/2018 study. FINDINGS: Heart size is enlarged. There appear to be slight increased pleural changes within the righ t lung as compared to the prior examination associated parenchymal changes are seen. Some of this difference could be related to technique. A watchman type device is seen in the left atrial appendage. Nonunion left humeral neck fracture agai n demonstrated. IMPRESSION: Increase in opacification over the right chest suggesting increasing effusion although th lexi changes could be technique related
[2018-10-24 11:46] LABS: Actual Bicarbonate (HCO3a) 39.3 mEq/L (22-28); Base Excess (BEa) 4.7 mEq/L (-2.0 to +3.0); Calcium, Ionized 1.24 mmol/L (1.12-1.30); Carboxyhemoglobin (COHb) 2.1 gm% (0.0-3.0); Hemoglobin (Hb) 16.1 g/dL (12.0-16.0); O2 Tension (PaO2) 124.4 mmHg (> 70.0); Potassium - ABG Lab 5.48 mmol/L (3.70-5.30)
[2018-10-24 12:12] LABS: pH, Arterial 7.13 (7.35-7.45)
[2018-10-24] MEDS ORDERED: Furosemide 40 MG/4 ML VIAL ONE (12:12)
[2018-10-24 12:13] LABS: ALV-art Gradient -48.365 (0-20); CO2 Tension 121.7 mmHg (35.0-45.0); Puncture Site RRA
--- NOTE | 2018-10-24 12:23 | PDOC.EVN ---
Event Note - Event Note Event Note: Called to [facility] [place]. Patient somnolent and shallow breathing. Opens eyes to vigorous stimulation and will give one deep breath but then goes back to sleep with inadequate breathing. ABG with severe hypercapneic acidosis. Bagged and transfered to unit. Dr. Leonard informed. Patient put on BiPAP. Still somnolent but able to wake up a bit. EKG with sinus tach with PACs vs. afib. No peaking of T-waves. BP adequate. Will give a dose of Lasix to help with volume overload and hyperkalemia. Got another dose of Kayexelate this AM. Patient may need to be intubated. Spoke with patient's daughter on the phone. She asked about DNR status. Patient currently full code. Will need to readdress with the patient and family as I suspect that patient will continue to have these decompensatory respiratory failure episodes due to her bad CHF unable to diurese due to poor nutrition/albumin status.
--- NOTE | 2018-10-24 12:26 | PRG ---
DATE OF SERVICE: 10/24/2018 SUBJECTIVE: I had signed off on this patient, though the patient is being seen again for recurrent hyperkalemia. The patient's potassium was normal few days ago, but it is constantly rising. The patient's creatinine has normalized. OBJECTIVE: CONSTITUTIONAL: The patient is resting. VITAL SIGNS: Afebrile, pulse 60, breathing 16, and blood pressure 111/64. GENERAL APPEARANCE AND MENTAL STATUS: Fair. HEAD/NECK: Normocephalic. Atraumatic. EYES: EOMI. No deformity. EARS: Clear. No ulcers. NOSE: Intact. No lesions. MOUTH: Clear. No discharge. THROAT: Clear. No exudate. LUNGS: Clear. No crackles. CARDIAC: S1, S2. No rub. ABDOMEN: Benign. Bowel sounds positive. GENITALIA/RECTUM: Roca absent. BACK/EXTREMITIES: Edema 0+. NEUROLOGICAL: Resting. LABORATORY DATA: Reviewed. ASSESSMENT AND PLAN: 1. Stage 3 chronic kidney disease, stable. 2. Acute kidney injury, resolved. 3. Hyperkalemia could be due to blood draw due to edema Potassium on the blood gas was normal. We will give Kayexalate and repeat potassium in a few hours. We would recommend very low-potassium diet. 4. Above finding were discussed with primary team Job ID: [id number] [facility]
[2018-10-24 12:30] LABS: Actual Bicarbonate (HCO3a) 31.4 mEq/L (22-28); Base Excess (BEa) 2.2 mEq/L (-2.0 to +3.0); Carboxyhemoglobin (COHb) 2.2 gm% (0.0-3.0); Hemoglobin (Hb) 15.8 g/dL (12.0-16.0); Potassium - ABG Lab 5.21 mmol/L (3.70-5.30); pH, Arterial 7.28 (7.35-7.45)
[2018-10-24 12:35] LABS: Puncture Site RRA
--- NOTE | 2018-10-24 12:43 | PRG ---
DATE OF SERVICE: 10/24/2018 SERVICE: Pulmonary Medicine. INTERVAL HISTORY: The patient was doing fine from respiratory standpoint up until this morning. She was increasingly altered. She cannot provide any additional elements of the history right now. She looks a little bit more labored today than she did two days ago. There has been otherwise no interval change to her condition. PHYSICAL EXAMINATION: VITAL SIGNS: Afebrile. Pulse 68, blood pressure 111/64, respirations 30, saturation 96% on 2 L nasal cannula. GENERAL: The patient is somnolent/slightly encephalopathic. She does wake up and answer questions appropriately. She has a slightly sick look about her. HEENT: Normocephalic and atraumatic. Sclerae white. Conjunctivae pink. Oral mucosa is moist without lesions. LUNGS: There is decreased air entry and a prolonged expiratory phase. I do hear wheezing, particularly on the left. The right base has decreased air movement once again ABDOMEN: Soft, nontender, and nondistended. Bowel sounds are positive. MUSCULOSKELETAL: No cyanosis or clubbing. The pitting edema has improved significantly. NEUROLOGIC: Other than encephalopathy and diffuse weakness, she is nonfocal. LABORATORY DATA: WBC 10.0, hemoglobin 15.3, platelets 116,000 and rebounding. INR 1.3. pH 7.1, pCO2 113, PO2 98. Creatinine 1.37, BUN 77, potassium 5.7. Basic metabolic profile is otherwise unremarkable. Body fluid culture was previously consistent with a transudate. Cytology was negative. IMAGING: Chest x-ray demonstrates recurrent effusion on the right. This is mostly layering. There is a widened carinal angle. Cardiomegaly is noted despite the fact this is a portable film. ASSESSMENT: 1. Acute hypoxic and hypercapnic respiratory failure. 2. Pleural effusion on the right, status post thoracentesis demonstrating a transudate with recurrence of fluid. 3. Acute on chronic diastolic heart failure. 4. Chronic obstructive pulmonary disease with acute exacerbation. 5. Metabolic encephalopathy, recurring. 6. Atrial fibrillation with rapid ventricular response. 7. Acute kidney injury on chronic kidney disease, 3. 8. Severe protein calorie malnutrition. 9. Nephrotic range proteinuria, suspected. DISCUSSION AND PLAN: The patient is once again doing quite poorly. I am going to do a bedside ultrasound and see whether or not the fluid is back. If it is, we will consider repeating a thoracentesis. The chest x-ray would certainly suggest that the fluid has returned and/or gotten bigger than in the previous imaging study we had. We are going to bring the patient back to the ICU and initiate her on BiPAP. Hopefully, with these interventions, we can prevent re-intubation. That being said, larger picture here is that the patient is not able to participate with physical therapy and is demonstrating increasing weakness. The fluid continues to return and she is not tolerating aggressive diuretics. I will repeat LFTs tomorrow morning. Palliative Care consultation will be placed as if the patient gets reintubated, she is unlikely to make it through this hospital stay without a tracheostomy in place. Pulmonary/Critical Care will continue to follow. Critical care time: 30 minutes. Job ID: [id number] MTDD
[2018-10-24 12:51] LABS: ALT (SGPT) 43 U/L (8-55); AST (SGOT) 53 U/L (5-34); Albumin 3.5 g/dL (3.4-4.8); Alkaline Phosphatase 88 U/L (40-150); Bilirubin, Direct 2.8 mg/dL (0.1-0.3); Bilirubin, Total 4.7 mg/dL (0.2-1.2); Protein, Total 6.9 g/dL (6.0-8.3)
[2018-10-24] MEDS ORDERED: Lorazepam 2 MG/ML VIAL SLOW IVP PRN (13:23)
[2018-10-24] MEDS: Morphine 2 MG/ML SYRINGE SLOW IVP PRN ×2 (13:52→17:26)
[2018-10-24 14:04] LABS: Creatinine, Urine 65.6 mg/dL (47-110)
--- NOTE | 2018-10-24 21:29 | CON ---
DATE OF CONSULTATION: 10/24/2018 HISTORY OF PRESENT ILLNESS: A 78-year-old morbidly obese woman has significant comorbid disease. I was asked to evaluate the patient today with regard to draining left leg wound. Family was at bedside during this evaluation. The patient had been treated previously for left leg cellulitis. The draining wound has been managed with local wound care. The patient has had no fevers or chills. I examined the wound, which is a 5-cm wound, approximately 4 cm below the left knee. The wound drains clear serous fluid. No purulence. There is no induration present. I have recommended continuation of local wound care. There is no surgical indication for this patient at this time. Job ID: [id number]
[2018-10-25 00:46] VITALS: BP 98/68; TEMP 98.6
--- NOTE | 2018-10-26 02:43 | DIS ---
DATE OF ADMISSION: 10/12/2018 DATE OF DISCHARGE: 10/25/2018 PRIMARY CARE PHYSICIAN: Nelly Sood MD REASON FOR ADMISSION: Acute exacerbation of congestive heart failure with shortness of breath. CAUSE OF : Exacerbation of diastolic congestive heart failure with recurrent pleural effusions causing respiratory failure. CONTRIBUTING CAUSES OF : Paroxysmal atrial fibrillation and acute kidney failure. Previous history of smoking in the distant past is a possible contribution. TIME OF : 0030 hours on 10/25/2018. SUMMARY OF HOSPITAL COURSE: This is a 78-year-old white female with a history of congestive heart failure and progressive right pleural effusions. She had difficulty diuresing completely with her Lasix, came to the hospital in respiratory distress. She had significant right pulmonary effusion. During her hospitalization, the patient had hypercapnic respiratory failure and had to be intubated. She then had thoracentesis done, large amount of fluid removed and improved respiratory status and was extubated. The patient had a waxing and waning hospital course. She did initially improve. However, her symptoms returned. The patient became severely increased work of breathing and decreased mental status the day before she . She had evidence of reaccumulation of right pleural effusion, not responding to Lasix therapy. The patient was initially brought to the ICU on BiPAP. After discussing with her family, it was determined that given the likelihood that this will keep reoccurring without us being able to control or prevent these recurrent respiratory failure episodes, the family decided to move her to comfort care only. She eventually the next morning. Job ID: [id number] MTDD
--- NOTE | 2018-10-29 17:29 | EKG ---
Test Reason : Blood Pressure : / mmHG Vent. Rate : 130 BPM Atrial Rate : 130 BPM P-R Int : 000 ms QRS Dur : 100 ms QT Int : 278 ms P-R-T Axes : 000 075 183 degrees QTc Int : 409 ms Accelerated Junctional rhythm with frequent Premature ventricular complexes in a pattern of bigeminy Low voltage QRS Incomplete right bundle branch block Septal infarct , age undetermined cannot be excluded Abnormal ECG Confirmed by YASEMIN FLANAGAN ([id number]) on 10/29/2018 5:29:04 PM Referred By: LENCHO Confirmed By:YASEMIN FLANAGAN
--- NOTE | 2018-10-31 14:14 | EKG ---
Test Reason : Blood Pressure : / mmHG Vent. Rate : 126 BPM Atrial Rate : 126 BPM P-R Int : 000 ms QRS Dur : 102 ms QT Int : 308 ms P-R-T Axes : 000 073 266 degrees QTc Int : 446 ms Atrial fibrillation Nonspecific T wave abnormality Abnormal ECG Confirmed by YASEMIN FLANAGAN ([id number]) on 10/31/2018 2:14:05 PM Referred By: LENCHO Confirmed By:YASEMIN FLANAGAN
--- NOTE | 2018-10-31 14:17 | EKG ---
Test Reason : CODE GREEN Blood Pressure : / mmHG Vent. Rate : 122 BPM Atrial Rate : 122 BPM P-R Int : 190 ms QRS Dur : 080 ms QT Int : 240 ms P-R-T Axes : 000 024 209 degrees QTc Int : 342 ms Atrial fibrillation with rapid ventricular response Cannot rule out Anteroseptal infarct , age undetermined Abnormal ECG Confirmed by YASEMIN FLANAGAN ([id number]) on 10/31/2018 2:17:18 PM Referred By: AMERICA Confirmed By:YASEMIN FLANAGAN
== END 2018-10-25 00:30 | disposition expired | DRG 291 ==
LOC: ERS 15:09 → ERHOLD 17:36 → 2NO 20:42 → CCU 10-14 16:09 → 2NO 10-20 09:53 → CCU 10-24 12:09 → T4-A 10-24 19:00
PROVIDERS: ADMIT Emergency Medicine; ATTEND Emergency Medicine
PROC: 0BH17EZ Insertion of Endotracheal Airway into Trachea, Via Natural or Artificial Opening (ICD-10-PCS; principal; 2018-10-14)
PROC: 5A1945Z Respiratory Ventilation, 24-96 Consecutive Hours (ICD-10-PCS; 2018-10-14)
PROC: 0W9930Z Drainage of Right Pleural Cavity with Drainage Device, Percutaneous Approach (ICD-10-PCS; 2018-10-18)
PROC: 5A09357 Assistance with Respiratory Ventilation, Less than 24 Consecutive Hours, Continuous Positive Airway Pressure (ICD-10-PCS; 2018-10-25)
DX: I13.0 Hypertensive heart and chronic kidney disease with heart failure and stage 1 through stage 4 chronic kidney disease, or unspecified chronic kidney disease (principal); I50.33 Acute on chronic diastolic (congestive) heart failure; J96.02 Acute respiratory failure with hypercapnia; J96.01 Acute respiratory failure with hypoxia; G93.41 Metabolic encephalopathy; N17.0 Acute kidney failure with tubular necrosis; L03.116 Cellulitis of left lower limb; E87.1 Hypo-osmolality and hyponatremia; Z68.41 Body mass index [BMI] 40.0-44.9, adult; S42.202K Unspecified fracture of upper end of left humerus, subsequent encounter for fracture with nonunion; E87.2 Acidosis; J90 Pleural effusion, not elsewhere classified; J44.1 Chronic obstructive pulmonary disease with (acute) exacerbation; N18.3 Chronic kidney disease, stage 3 (moderate); Z51.5 Encounter for palliative care; Z66 Do not resuscitate; I48.0 Paroxysmal atrial fibrillation; I25.10 Atherosclerotic heart disease of native coronary artery without angina pectoris; I45.10 Unspecified right bundle-branch block; E66.01 Morbid (severe) obesity due to excess calories; E87.5 Hyperkalemia; I34.0 Nonrheumatic mitral (valve) insufficiency; I07.1 Rheumatic tricuspid insufficiency; E03.9 Hypothyroidism, unspecified; I87.8 Other specified disorders of veins; R31.0 Gross hematuria; R29.898 Other symptoms and signs involving the musculoskeletal system; I27.20 Pulmonary hypertension, unspecified; E87.8 Other disorders of electrolyte and fluid balance, not elsewhere classified; D69.6 Thrombocytopenia, unspecified; N28.1 Cyst of kidney, acquired; R12 Heartburn; Z96.651 Presence of right artificial knee joint; B96.5 Pseudomonas (aeruginosa) (mallei) (pseudomallei) as the cause of diseases classified elsewhere; Z87.891 Personal history of nicotine dependence; Z88.8 Allergy status to other drugs, medicaments and biological substances; Z79.82 Long term (current) use of aspirin; Z79.899 Other long term (current) drug therapy; Z82.49 Family history of ischemic heart disease and other diseases of the circulatory system; Z95.818 Presence of other cardiac implants and grafts
CPT/HCPCS: 36415; 36416; 71045; 71046; 76770; 80048; 80053; 80076; 81001; 82570; 82805; 82945; 83605; 83615; 83735; 83880; 83986; 84100; 84156; 84157; 84439; 84443; 84481; 84484; 85025; 85049; 85060; 85300; 85362; 85379; 85384; 85610; 85730; 87070; 87116; 87205; 87206; 88112; 88305; 89051; 93005; 93010; 93306; 93798; 94002; 94003; 94640; 94660; 94760; 96374; 96375; A4218; J1650; J1940; J1956; J2060; J2270; J2704; J2920; J3010; J3490; J7050; J7512; J7620; S0028